=== PATIENT | female | born 1940 | race Caucasian/White ===

== ENCOUNTER → 2018-04-01 14:08 | Outpatient (CLI) | payer MEDICARE, OTHER, SELFPAY ==
[2018-04-01 14:42] LABS: Mean Corpuscular HGB Conc 34.4 % (30-36); Mean Corpuscular Hemoglobin 29.5 PG (26-34); Mean Corpuscular Volume 85.8 fL (80-100); Platelet Count 63 X10^3/uL (150-400); Red Blood Cell Count 1.64 X10^6/uL (4.0-5.2)
[2018-04-01 14:43] LABS: Hemoglobin 4.8 g/dL (12.0-16.0); White Blood Cell Count 0.8 X10^3/uL (4.5-11.0)
[2018-04-01 14:44] LABS: Hematocrit 14.1 % (36-46)
[2018-04-01 14:45] LABS: Add Manual Diff / Slide Review YES
[2018-04-01 14:50] LABS: Alanine Aminotransferase 17 IU/L (9-52); Albumin 3.4 g/dL (3.5-5.0); Albumin Globulin Ratio 1.4 (1.0-2.8); Alkaline Phosphatase 64 U/L (38-126); Aspartate Aminotransferase 14 IU/L (14-36); BUN Creatinine Ratio 21.9 (6-22); Bilirubin Total 0.7 mg/dL (0.2-1.3); Bilirubin Unconjugated 0.6 mg/dL (0.0-1.1); Blood Urea Nitrogen 35 mg/dL (7-17); Carbon Dioxide 20 mmol/L (22-32); Chloride 104 mmol/L (98-107); Estimated Glomerular Filt Rate 31.3 mL/min (>60); Globulin 2.4 g/dL (1.7-4.1); Glucose 122 mg/dL (80-110); HEMOLYSIS < 15 (0-50); Potassium 3.7 mmol/L (3.4-5.1); Sodium 136 mmol/L (137-145); Total Protein 5.8 g/dL (6.3-8.2)
--- NOTE | 2018-04-01 14:56 | ONC.PN ---
PN -Subjective Interval history: Tona Alves is a 77 year old female. She is a long-time patient of Dr. Babita Thompson at the [facility]. 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 The biopsy was performed on 12/14/2010 which showed amyloidosis with deposits of monoclonal lambda light chains within glomeruli. Bone marrow aspiration biopsy on 01/06/2011 showed plasma cell fractionation of 0.92% by flow cytometry. Patient received treatment with melphalan and dexamethasone for 12 months. The melphalan was 10 mg daily for 4 days every 4 weeks and dexamethasone 20 mg daily for 4 days every 4 weeks. Patient received her twelfth cycle of treatment in February of 2012. In October 2016, patient developed pancytopenia. BMA/Bx on 11/28/16 showed hypocellular marrow (%) with involvement by MDS and minimal involvement by plasma cell neoplasm. Marrow showed 3% blasts by morphology. Cytogenetics showed complex karyotype including deletion 5q and monosomy 7. 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 Because of her history of amyloidosis and therapy with melpalan, therapy-related MDS (t-MDS) was noted. She was evaluated at [facility] by Dr. Babita Thompson. The patient was then started on Azacitidine 75 m/m2 daily on days 1 through 10. C1D1 was 02/05/2017. she was also started on treatment with Darbopointin injection. Up until now, she has received 10 cycles of Azacitaidine. On 01/18/2018, repeat BMA/Bx showed persistent/recurrent MDS with approximately 5% blasts in 2-30% cellular marrow and residual/recurrent plasma cell neoplasm, approximately 1-2%, abnormal female karyotype (19/20), including loss of normal copies of chromosomes 4, 7 and 19; additional material of undefined origin on the short arm of chromosome 2 and the long arms of chromosomes 6 and 20; deletions of the long arms of chromosomes 5 and 15; a derivative chromosome resulting from an unbalanced translocation between and unknown chromosome and what appear to be portions of the missing chromosomes 4 and 19; and the presence of 1-3 marker chromosomes of undefined origin. The -4, smiley(15), add(20), and smiley(?)t(?:4) are new findings. Clinically, she said at present, she feels good. No nose bleed for quite a while. She went to ER for nose bleeding in the past. She reports good energy, good appetite, no fever and no chills. She has mild lower extremity edema. She reports no blood in the stool. No bone pain. She is scheduled to see Dr. Babita Dickey on 03/13/2018. Interim Events Patient recently was seen by Dr. Babita Thompson at the [facility]. She was given Azacitadine 03/20/2018 the 10th injection of curren cycle. She will be started 04/11/2018 next cycle. She also received Darbepoetin at the time. Patient presents here today for scheduled follow-up visit. Patient is hoping that she is able to continue the Darbepoetin here. But she has not decided whether she will continue the treatment with Vidaza at [place]. She said for the last couple of days, she has felt a lot weaker than before. She also is feeling pounding of the heart. Her thought she was having anxiety attack. No fever and no chills. No bleeding events. - Additional ROS All systems PM: reviewed and no additional remarkable complaints except as stated Home Medications and Allergies Home Medications Medication Instructions Recorded Confirmed Type acyclovir 800 mg PO DAILY #0 12/30/10 04/01/18 History atorvastatin 40 mg PO HS #90 tab 10/18/16 04/06/18 Rx cholecalciferol (vitamin D3) 1,000 unit PO Q OTHER DAY 03/11/18 04/06/18 History [Vitamin D3] levofloxacin 250 mg PO DAILY 03/11/18 04/06/18 History metoprolol succinate 300 mg PO DAILY 03/11/18 04/01/18 History polyethylene glycol 3350 [Miralax] 17 g PO PRN PRN 03/11/18 04/06/18 History amlodipine 5 mg PO DAILY 04/05/18 04/05/18 History fluconazole 200 mg PO DAILY 04/06/18 04/06/18 History Allergies Allergy/AdvReac Type Severity Reaction Status Date / Time amoxicillin Allergy Mild Rash Verified 04/01/18 22:57 Tetanus Vaccines and Toxoid AdvReac Unknown Verified 04/01/18 15:03 [TETANUS VACCINES & TOXOID] Exam Vital signs: Last Vital Signs Temp 98.0 F 04/01/18 16:32 Pulse 80 04/01/18 16:32 Resp 18 04/01/18 16:32 BP 137/61 04/01/18 16:32 Pulse Ox 100 04/01/18 16:32 ECOG 1 Narrative: Constitutional: WDWN, NAD, average body habitus, well groomed, pleasant and cooperative, accompanied by her HEENT: NCAT, EOMI, PERRLA, anicteric sclera, no hearing difficulty; oral mucus membrane moist and without ulcers. Neck: Supple, symmetrical, and tracheal midline; No palpable thyromegaly and no palpable lymph nodes. Respiratory: No use of accessory muscles. Clear to auscultation, and no wheezes or rales or rubs. Cardiovascular: Regular rate and rhythm, S1 and S2 normal, no murmurs gallops or rubs. No JVD. No pitting edema of lower extremities. Abdomen: Soft, nontender, non-distended, bowel sounds normal, no palpable organomegaly, no hernia, no palpable masses. Lower extremities: No palpable pedal edema. Lymphatic: no palpable lymph nodes in the neck, axillae, or groins. Musculoskeletal: normal gait and station, no clubbing, no cyanosis, no pitting edema. Skin: petechiae noted at cheeks Neurological: Awake and alert and oriented x3. CN II-XII grossly intact. No focal motor or sensory deficit. Psychiatric: Good judgment, good insight, normal affect, normal thought process, cooperative, no depression, no anxiety. Results - Labs Laboratory Last Values WBC 0.8 X10^3/uL (4.5-11.0) L* 04/01/18 14:16 RBC 1.64 X10^6/uL (4.0-5.2) L 04/01/18 14:16 Hgb 4.8 g/dL (12.0-16.0) L* 04/01/18 14:16 Hct 14.1 % (36-46) L* 04/01/18 14:16 MCV 85.8 fL (80-100) 04/01/18 14:16 MCH 29.5 PG (26-34) 04/01/18 14:16 MCHC 34.4 % (30-36) 04/01/18 14:16 RDW 14.0 % (11.6-14.8) 04/01/18 14:16 Plt Count 63 X10^3/uL (150-400) L 04/01/18 14:16 Neut % (Auto) Not Reportable 04/01/18 14:16 Lymph % (Auto) Not Reportable 04/01/18 14:16 [place] % (Auto) Not Reportable 04/01/18 14:16 Eos % (Auto) Not Reportable 04/01/18 14:16 Baso % (Auto) Not Reportable 04/01/18 14:16 Sodium 136 mmol/L (137-145) L 04/01/18 14:16 Potassium 3.7 mmol/L (3.4-5.1) 04/01/18 14:16 Chloride 104 mmol/L (98-107) 04/01/18 14:16 Carbon Dioxide 20 mmol/L (22-32) L 04/01/18 14:16 BUN 35 mg/dL (7-17) H 04/01/18 14:16 Creatinine 1.60 mg/dL (0.52-1.04) H 04/01/18 14:16 Estimated GFR 31.3 mL/min (>60) L 04/01/18 14:16 BUN/Creatinine Ratio 21.9 (6-22) 04/01/18 14:16 Glucose 122 mg/dL (80-110) H 04/01/18 14:16 Calcium 8.0 mg/dL (8.4-10.2) L 04/01/18 14:16 Total Bilirubin 0.7 mg/dL (0.2-1.3) 04/01/18 14:16 Conjugated Bilirubin 0.0 md/dL (0.0-0.3) 04/01/18 14:16 Unconjugated Bilirubin 0.6 mg/dL (0.0-1.1) 04/01/18 14:16 AST 14 IU/L (14-36) 04/01/18 14:16 ALT 17 IU/L (9-52) 04/01/18 14:16 Alkaline Phosphatase 64 U/L (38-126) 04/01/18 14:16 Total Protein 5.8 g/dL (6.3-8.2) L 04/01/18 14:16 Albumin 3.4 g/dL (3.5-5.0) L 04/01/18 14:16 Globulin 2.4 g/dL (1.7-4.1) 04/01/18 14:16 Albumin/Globulin Ratio 1.4 (1.0-2.8) 04/01/18 14:16 Assessment and Plan (1) Anemia Problem details: Likely related to the underlying myelodysplastic syndrome as well as the treatment with azacitidine. She is now getting Darbepoetin injection 300 mcg q2w for HGB < 12. Assessment and Plan: Severe symptomatic anemia with hemoglobin level only 4.8 hematocrit 14.1. I will proceed with blood transfusion 3 units. Will give 20 mg of Lasix after 2 units. I will have the patient come back on Sunday and repeat CBC to decide if further blood transfusion is needed. And will start W pointing at the time 300 and mcg once every 2 weeks. Talked about that in the future it would be necessary to monitor her blood counts at least once a week. (2) Therapy-related myelodysplastic syndrome Problem details: 1. 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 At the time of diagnosis, she presented with anemia and leukopenia. Thought to be therapy related. 2. Azacitidine 75 m/m2 daily on days 1-10 q4w. C1D1 was 02/05/2017. 3. Darbepoetin injection 300 mcg q2w for HGB < 12. Assessment and Plan: Will continue azacitidine at [facility]. Patient has not decided to transfer the treatment over here yet. (3) AL amyloidosis Problem details: Diagnosed in 2010, status post 12 cycles of chemotherapy with the melphalan and dexamethasone. Assessment and Plan: Patient is a being followed by [facility]. (4) CKD (chronic kidney disease) stage 3, GFR 30-59 ml/min Problem details: Due to AL amyloidosis. Assessmend and Plan: Followed by [facility].
[2018-04-01 14:57] VITALS: BP 137/61; PULSE 80; RESP 18
--- NOTE | 2018-04-01 15:00 | P.PNONC_ITS ---
PN -Subjective Interval history: Tona Alves is a 77 year old female. She is a long-time patient of Dr. Babita Thompson at the [facility]. 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 The biopsy was performed on 12/14/2010 which showed amyloidosis with deposits of monoclonal lambda light chains within glomeruli. Bone marrow aspiration biopsy on 01/06/2011 showed plasma cell fractionation of 0.92% by flow cytometry. Patient received treatment with melphalan and dexamethasone for 12 months. The melphalan was 10 mg daily for 4 days every 4 weeks and dexamethasone 20 mg daily for 4 days every 4 weeks. Patient received her twelfth cycle of treatment in February of 2012. In October 2016, patient developed pancytopenia. BMA/Bx on 11/28/16 showed hypocellular marrow (%) with involvement by MDS and minimal involvement by plasma cell neoplasm. Marrow showed 3% blasts by morphology. Cytogenetics showed complex karyotype including deletion 5q and monosomy 7. 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 Because of her history of amyloidosis and therapy with melpalan, therapy-related MDS (t-MDS) was noted. She was evaluated at [facility] by Dr. Babita Thompson. The patient was then started on Azacitidine 75 m/m2 daily on days 1 through 10. C1D1 was 02/05/2017. she was also started on treatment with Darbopointin injection. Up until now, she has received 10 cycles of Azacitaidine. On 01/18/2018, repeat BMA/Bx showed persistent/recurrent MDS with approximately 5% blasts in 2-30% cellular marrow and residual/recurrent plasma cell neoplasm, approximately 1-2%, abnormal female karyotype (19/20), including loss of normal copies of chromosomes 4, 7 and 19; additional material of undefined origin on the short arm of chromosome 2 and the long arms of chromosomes 6 and 20; deletions of the long arms of chromosomes 5 and 15; a derivative chromosome resulting from an unbalanced translocation between and unknown chromosome and what appear to be portions of the missing chromosomes 4 and 19; and the presence of 1-3 marker chromosomes of undefined origin. The -4, smiley(15), add(20) , and smiley(?)t(?:4) are new findings. Clinically, she said at present, she feels good. No nose bleed for quite a while. She went to ER for nose bleeding in the past. She reports good energy, good appetite, no fever and no chills. She has mild lower extremity edema. She reports no blood in the stool. No bone pain. She is scheduled to see Dr. Babita Dickey on 03/13/2018. Interim Events Patient recently was seen by Dr. Babita Thompson at the [facility]. She was given Azacitadine 03/20/2018 the 10th injection of curren cycle. She will be started 04/11/2018 next cycle. She also received Darbepoetin at the time. Patient presents here today for scheduled follow-up visit. Patient is hoping that she is able to continue the Darbepoetin here. But she has not decided whether she will continue the treatment with Vidaza at [place]. She said for the last couple of days, she has felt a lot weaker than before. She also is feeling pounding of the heart. Her thought she was having anxiety attack. No fever and no chills. No bleeding events. - Additional ROS All systems PM: reviewed and no additional remarkable complaints except as stated Home Medications and Allergies Home Medications Medication Instructions Recorded Confirmed Type acyclovir 800 mg PO DAILY #0 12/30/10 04/01/18 History atorvastatin 40 mg PO HS #90 tab 10/18/16 04/06/18 Rx cholecalciferol (vitamin D3) 1,000 unit PO Q OTHER DAY 03/11/18 04/06/18 History [Vitamin D3] levofloxacin 250 mg PO DAILY 03/11/18 04/06/18 History metoprolol succinate 300 mg PO DAILY 03/11/18 04/01/18 History polyethylene glycol 3350 [Miralax] 17 g PO PRN PRN 03/11/18 04/06/18 History amlodipine 5 mg PO DAILY 04/05/18 04/05/18 History fluconazole 200 mg PO DAILY 04/06/18 04/06/18 History Allergies Allergy/AdvReac Type Severity Reaction Status Date / Time amoxicillin Allergy Mild Rash Verified 04/01/18 22:57 Tetanus Vaccines and Toxoid AdvReac Unknown Verified 04/01/18 15:03 [TETANUS VACCINES & TOXOID] Exam Vital signs: Last Vital Signs Temp 98.0 F 04/01/18 16:32 Pulse 80 04/01/18 16:32 Resp 18 04/01/18 16:32 BP 137/61 04/01/18 16:32 Pulse Ox 100 04/01/18 16:32 ECOG 1 Narrative: Constitutional: WDWN, NAD, average body habitus, well groomed, pleasant and cooperative, accompanied by her HEENT: NCAT, EOMI, PERRLA, anicteric sclera, no hearing difficulty; oral mucus membrane moist and without ulcers. Neck: Supple, symmetrical, and tracheal midline; No palpable thyromegaly and no palpable lymph nodes. Respiratory: No use of accessory muscles. Clear to auscultation, and no wheezes or rales or rubs. Cardiovascular: Regular rate and rhythm, S1 and S2 normal, no murmurs gallops or rubs. No JVD. No pitting edema of lower extremities. Abdomen: Soft, nontender, non-distended, bowel sounds normal, no palpable organomegaly, no hernia, no palpable masses. Lower extremities: No palpable pedal edema. Lymphatic: no palpable lymph nodes in the neck, axillae, or groins. Musculoskeletal: normal gait and station, no clubbing, no cyanosis, no pitting edema. Skin: petechiae noted at cheeks Neurological: Awake and alert and oriented x3. CN II-XII grossly intact. No focal motor or sensory deficit. Psychiatric: Good judgment, good insight, normal affect, normal thought process , cooperative, no depression, no anxiety. Results - Labs Laboratory Last Values WBC 0.8 X10^3/uL (4.5-11.0) L* 04/01/18 14:16 RBC 1.64 X10^6/uL (4.0-5.2) L 04/01/18 14:16 Hgb 4.8 g/dL (12.0-16.0) L* 04/01/18 14:16 Hct 14.1 % (36-46) L* 04/01/18 14:16 MCV 85.8 fL (80-100) 04/01/18 14:16 MCH 29.5 PG (26-34) 04/01/18 14:16 MCHC 34.4 % (30-36) 04/01/18 14:16 RDW 14.0 % (11.6-14.8) 04/01/18 14:16 Plt Count 63 X10^3/uL (150-400) L 04/01/18 14:16 Neut % (Auto) Not Reportable 04/01/18 14:16 Lymph % (Auto) Not Reportable 04/01/18 14:16 Sabine % (Auto) Not Reportable 04/01/18 14:16 Eos % (Auto) Not Reportable 04/01/18 14:16 Baso % (Auto) Not Reportable 04/01/18 14:16 Sodium 136 mmol/L (137-145) L 04/01/18 14:16 Potassium 3.7 mmol/L (3.4-5.1) 04/01/18 14:16 Chloride 104 mmol/L (98-107) 04/01/18 14:16 Carbon Dioxide 20 mmol/L (22-32) L 04/01/18 14:16 BUN 35 mg/dL (7-17) H 04/01/18 14:16 Creatinine 1.60 mg/dL (0.52-1.04) H 04/01/18 14:16 Estimated GFR 31.3 mL/min (>60) L 04/01/18 14:16 BUN/Creatinine Ratio 21.9 (6-22) 04/01/18 14:16 Glucose 122 mg/dL (80-110) H 04/01/18 14:16 Calcium 8.0 mg/dL (8.4-10.2) L 04/01/18 14:16 Total Bilirubin 0.7 mg/dL (0.2-1.3) 04/01/18 14:16 Conjugated Bilirubin 0.0 md/dL (0.0-0.3) 04/01/18 14:16 Unconjugated Bilirubin 0.6 mg/dL (0.0-1.1) 04/01/18 14:16 AST 14 IU/L (14-36) 04/01/18 14:16 ALT 17 IU/L (9-52) 04/01/18 14:16 Alkaline Phosphatase 64 U/L (38-126) 04/01/18 14:16 Total Protein 5.8 g/dL (6.3-8.2) L 04/01/18 14:16 Albumin 3.4 g/dL (3.5-5.0) L 04/01/18 14:16 Globulin 2.4 g/dL (1.7-4.1) 04/01/18 14:16 Albumin/Globulin Ratio 1.4 (1.0-2.8) 04/01/18 14:16 Assessment and Plan (1) Anemia Problem details: Likely related to the underlying myelodysplastic syndrome as well as the treatment with azacitidine. She is now getting Darbepoetin injection 300 mcg q2w for HGB < 12. Assessment and Plan: Severe symptomatic anemia with hemoglobin level only 4.8 hematocrit 14.1. I will proceed with blood transfusion 3 units. Will give 20 mg of Lasix after 2 units. I will have the patient come back on Sunday and repeat CBC to decide if further blood transfusion is needed. And will start W pointing at the time 300 and mcg once every 2 weeks. Talked about that in the future it would be necessary to monitor her blood counts at least once a week. (2) Therapy-related myelodysplastic syndrome Problem details: 1. 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 At the time of diagnosis, she presented with anemia and leukopenia. Thought to be therapy related. 2. Azacitidine 75 m/m2 daily on days 1-10 q4w. C1D1 was 02/05/2017. 3. Darbepoetin injection 300 mcg q2w for HGB < 12. Assessment and Plan: Will continue azacitidine at [facility]. Patient has not decided to transfer the treatment over here yet. (3) AL amyloidosis Problem details: Diagnosed in 2010, status post 12 cycles of chemotherapy with the melphalan and dexamethasone. Assessment and Plan: Patient is a being followed by dog daycare provider. (4) CKD (chronic kidney disease) stage 3, GFR 30-59 ml/min Problem details: Due to AL amyloidosis. Assessmend and Plan: Followed by dog daycare provider.
[2018-04-01 15:12] LABS: Neutrophils Absolute Manual 96 /uL (3000-5900); Total Cells Counted 25
[2018-04-01 15:14] LABS: Anisocytosis 1+
--- NOTE | 2018-04-01 15:38 | PC.NURSE ---
Dr. Stanton and patient have decided to HOLD Aranesp until when patient comes back for blood draw.
[2018-04-01 16:32] VITALS: BP 137/61; PULSE 80; RESP 18; TEMP 36.7; O2SAT 100
--- NOTE | 2018-04-01 16:58 | PC.NURSE ---
Transferred via W/C to 228 for blood transfusion as Infusion Suite closed @ 5:00. Accompanied by spouse. Ambulatory to Bathroom .
== END ==
PROVIDERS: Family Provider Family Medicine; PCP Family Medicine; Visit Provider Internal Medicine Hematology & Oncology
DX: D46.9 Myelodysplastic syndrome, unspecified (principal)
CPT/HCPCS: 36415; 80048; 80076; 85025

== ENCOUNTER 2018-04-01 16:56 | Observation (INO) | payer MEDICARE, OTHER, SELFPAY ==
[2018-04-01] VITALS (9 sets, daily range): BP systolic 134–147; BP diastolic 60–67; PULSE 70–79; RESP 16–20; TEMP 36.5–37.2; O2SAT 96–100; BMI 26.3
[2018-04-01] MEDS: SODIUM CHLORIDE 0.9% 250 ML 21 ML IV (17:46)
--- NOTE | 2018-04-01 18:09 | PC.NURSE ---
Airam shift note: Patient admitted to , observation status for PRBC transfusions x 3. Patient was BIB by oncology nurse and report was given at bedside. Consent for transfusion verified. Obtained blood product from LAB and initiated transfusion at 1720. VSS and afebrile. Cross and match was perfomed at 1424 (blood type O +). All verifications performed as per policy. Patient is awake, alert, and pleasant, no SOB or dizziness. Facial pallor noted. at bedside providing supportive care. Discussed and educateed regarding s/sx of transfusion reaction, verbalized understanding. VS obtained may not populate on TAR due to issued with crossing initial account to from oncology. (please see VS record). Call light within reach.
[2018-04-01] MEDS: ATORVASTATIN 20 MG TABLET 40 MG PO (19:30)
[2018-04-01] MEDS: METOPROLOL ER 50 MG TABLET 150 MG PO (19:31)
[2018-04-01] MEDS: levoFLOXacin 250 MG TABLET PO (21:19)
[2018-04-01] MEDS: FUROSEMIDE 20 MG/2 ML VIAL IV (23:57)
[2018-04-02 00:25] VITALS: BP 141/60; PULSE 72; RESP 16; TEMP 36.5
[2018-04-02 00:46] VITALS: BP 132/68; PULSE 71; RESP 14; TEMP 36.7
--- NOTE | 2018-04-02 01:02 | TAR.TRANSNT ---
Blood transfusion started at 0031 which was within 15 minutes of issue time, but computer kept displaying message that time was outside 15 minutes of issue time.
--- NOTE | 2018-04-02 01:03 | PC.NURSE ---
Addendum entered by Sarika Michel R.N. 04/02/18 04:01: 3rd unit of PRBC initiated at 0031 now completed at 0342 without problems. Original Note: Patient is alert and oriented. Breath sounds CTA with RA sat of 98%. HRR. Denies nausea. BT present and abdomen is soft. Has urinary frequency but denies dysuria or incontinence. Independent with bed mobility but SBA to bathroom for safety. Noted bruising on bilateral UE. Denies pain. Fall risk score is moderate but no bed alarm in use as patient is calling appropriately and is steady on feet.
[2018-04-02 03:42] VITALS: BP 142/69; PULSE 69; RESP 14; TEMP 36.5; O2SAT 98
[2018-04-02] MEDS: SODIUM CHLORIDE 0.9% 250 ML 21 ML IV (03:42)
[2018-04-02 07:45] VITALS: BP 143/63; PULSE 67; RESP 16; TEMP 36.9; O2SAT 93
[2018-04-02] MEDS: METOPROLOL ER 50 MG TABLET 150 MG PO (08:16)
--- NOTE | 2018-04-02 09:25 | PC.NURSE ---
Day Shift- Pt A&OX4, pleasant and cooperative, appropriate and able to make her needs known using call light. SBA to BR with steady agit. States feeling overall better than when I came in. Kanu at bedside who stayed the night. VSS, afebrile, pt asymptomatic upon assessment. RN Coordinator spoke with Dr. Parker office and rec'd verbal discharge order to go home, no lab work order for this AM, will follow up in Dr. Stanton's office this Sunday ( pt already has appointment made) for repeat lab work. Continue home medications. PIV removed from left AC without difficulty, no bleeding noted. Gauze, paper tabe and coban placed per pt request. Pt given priority boarding pass [place] [address] to [facility]. Reviewed discharge summary with pt and her , no voiced concerns. is ready for discharge. has all belongings. Pt left unit at 0930 via wheelchair with HAND HIDE STRETCHER, pt's present to drive home. Pt left unit in no distress.
--- NOTE | 2018-04-02 10:14 | CM.DPC ---
DCP Cont: Case received, EMR reviewed and met with patient and . Introduced self and role. DCP template completed with information given by . Patient is a 77 year old female who admitted yesterday afternoon to the care of the hospitalist team. PCP: Dr. Melendez. Payer: confirmed: Medicare/[employer]. Patient came over to hospital sent from oncology. She was here for blood transfusions. Met briefly with in room. They live on [facility], and come to oncology for treatments. Indicated that she is independent at home. Patient is to be discharged home today. P: Patient discharged home today post transfusion. Will be following up at oncology clinic. Tamara Lawton RN/Credit Investigator
== END 2018-04-02 09:30 | disposition home or self-care (01) ==
PROVIDERS: Admitting Provider Internal Medicine Hematology & Oncology; Family Provider Family Medicine; PCP Family Medicine; Visit Provider Internal Medicine Hematology & Oncology
DX: D64.9 Anemia, unspecified (principal); C94.6 Myelodysplastic disease, not elsewhere classified; E85.81 Light chain (AL) amyloidosis; N18.3 Chronic kidney disease, stage 3 (moderate)
CPT/HCPCS: 36415; 36430; 80048; 80076; 85025; 86850; 86900; 86901; 99215; G0378; P9016; G0379; J1940

== ENCOUNTER → 2018-04-25 10:22 | Outpatient (CLI) | payer MEDICARE, OTHER, SELFPAY ==
[2018-04-01 17:11] VITALS: BMI 26.3
[2018-04-25 11:09] LABS: Hematocrit 22.4 % (36-46); Hemoglobin 7.8 g/dL (12.0-16.0); Mean Corpuscular HGB Conc 34.7 % (30-36); Mean Corpuscular Hemoglobin 29.9 PG (26-34); Mean Corpuscular Volume 86.3 fL (80-100); Platelet Count 70 X10^3/uL (150-400); Red Cell Distribution Width 13.4 % (11.6-14.8)
[2018-04-25 11:10] LABS: White Blood Cell Count 0.8 X10^3/uL (4.5-11.0)
[2018-04-25 11:11] LABS: Add Manual Diff / Slide Review YES
[2018-04-25 11:33] LABS: Neutrophils Absolute Manual 64 /uL (3000-5900); Platelet Morphology Comment K1; RBC Morphology A1; Total Cells Counted 50
== END ==
PROVIDERS: Family Provider Family Medicine; PCP Family Medicine; Visit Provider Internal Medicine Hematology & Oncology
DX: D46.9 Myelodysplastic syndrome, unspecified (principal)
CPT/HCPCS: 36415; 85025

== ENCOUNTER → 2018-05-02 11:50 | Outpatient (CLI) | payer MEDICARE, OTHER, SELFPAY ==
[2018-04-01 17:11] VITALS: BMI 26.3
--- NOTE | 2018-05-02 12:25 | DI.CT.S_ITS ---
PROCEDURE: CT CHEST WO CON INDICATIONS: increased sob and cough TECHNIQUE: Noncontrast 5 mm thick sections acquired from the pulmonary apices to the posterior costophrenic angles. 7 mm thick coronal and sagittal MIP reformats were then acquired. For radiation dose reduction, the following was used: automated exposure control, adjustment of mA and/or kV according to patient size. COMPARISON: None. FINDINGS: Image quality: Diagnostic. Lungs and pleura: Patchy areas of consolidation are identified diffusely throughout the lungs, most pronounced within the right upper lobe and left lower lobe. Impression nodularity is evident. No lobar consolidation is appreciated. No effusion or pneumothorax is evident. No definite masses appreciated. Mediastinum: Heart size is enlarged. There is a small pericardial effusion. Coronary artery atherosclerosis is present. Borderline aneurysmal dilatation of the ascending thoracic aorta is identified, measuring up to 3.9 cm in AP dimension near the level of the pulmonary artery. The main pulmonary artery appears to be within normal limits for size. Esophagus is normal in caliber. No hiatal hernia. Mildly enlarged mediastinal and hilar lymph nodes are identified which are probably reactive. Bones and chest wall: No suspicious bony lesions. No vertebral body compression fractures. Age-appropriate degenerative changes of the spine are present. No axillary or supraclavicular adenopathy by size criteria. Thyroid gland is unremarkable. Abdomen: Visualized upper abdominal solid organs and bowel loops appear normal in the absence of contrast. IMPRESSION: 1. Diffuse patchy pneumonia is more pronounced within the right upper lobe and left lower lobe. 2. Cardiomegaly with a small pericardial effusion. 3. Ectasia of the ascending thoracic aorta without jase aneurysm. 4. Scattered reactive lymph nodes within the mediastinum and hilar regions. Dictated by: Lio Rosado M.D. on 05/02/2018 at 11:52 Approved by: Lio Rosado M.D. on 05/02/2018 at 12:04
== END ==
PROVIDERS: Family Provider Internal Medicine Hematology; PCP Family Medicine; Visit Provider Internal Medicine Hematology & Oncology
DX: J18.9 Pneumonia, unspecified organism (principal); R06.02 Shortness of breath; R05 Cough; I51.7 Cardiomegaly; I31.3 Pericardial effusion (noninflammatory); I77.810 Thoracic aortic ectasia; I25.10 Atherosclerotic heart disease of native coronary artery without angina pectoris; R59.0 Localized enlarged lymph nodes
CPT/HCPCS: 71250

== ENCOUNTER 2018-05-02 16:39 | Inpatient (IN) | payer MEDICARE, OTHER, SELFPAY ==
[2018-04-01 17:11] VITALS: BMI 26.3
[2018-05-02] VITALS (7 sets, daily range): BP systolic 144–162; BP diastolic 62–73; PULSE 71–86; RESP 20–23; TEMP 37.1–37.8; O2SAT 91–94; BMI 26.1
[2018-05-02 18:07] LABS: Hematocrit 25.7 % (36-46); Hemoglobin 8.8 g/dL (12.0-16.0); Mean Corpuscular HGB Conc 34.1 % (30-36); Mean Corpuscular Hemoglobin 29.8 PG (26-34); Mean Corpuscular Volume 87.4 fL (80-100); Platelet Count 38 X10^3/uL (150-400); Red Blood Cell Count 2.95 X10^6/uL (4.0-5.2); Red Cell Distribution Width 13.4 % (11.6-14.8)
[2018-05-02 18:09] LABS: Add Manual Diff / Slide Review YES; White Blood Cell Count 0.8 X10^3/uL (4.5-11.0)
--- NOTE | 2018-05-02 18:11 | PM.HP.1 ---
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 Stanton at the [facility] for shortness of breath, cough, fever, and diarrhea. The patient reports that she went to [facility] on Sunday and developed a cough later that evening. She had accompanying fever at at 100.4? F and diarrhea (4-5 watery stools per day). Today she started developing difficulty breathing. She has had mild blood-tinged sputum as well. She has chronic rhinitis that has not worsened. She denies headache, vision changes, sore throat, chest pain, abdominal pain, nausea, vomiting, dysuria, or constipation. She does endorse fatigue and does not usually feel symptomatic of her anemia including fatigue, lethargy, and shortness of breath. Her appetite and fluid intake have been poor. Her oncologist is Dr. Emily Thompson at [facility] and Dr. Naeem Stanton at [facility]. PCP is Dr. Melendez on [facility]. Patient History Medical History Amyloidosis (Acute) CKD (chronic kidney disease) (Acute) Cancer, skin, squamous cell (Acute) HTN (hypertension) (Acute) Hyperlipidemia (Acute) Intermittent atrial fibrillation (Acute) 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) Surgical History History of bone marrow biopsy (Acute) History of brain surgery (Acute) Hx laparoscopic cholecystectomy (Acute) Hx of cholecystectomy (Acute) Family & Social History Social History: household members spouse The patient lives with her spouse. She has been for 58 years. She has 1 daughter who has MS and 1 son who is healthy. Tobacco & Substance use: Smoking Status Never smoker alcohol intake frequency 0-2 drinks per day No illicit substances. Meds Home Medications Medication Instructions Recorded Confirmed Type acyclovir 800 mg PO DAILY #0 12/30/10 05/02/18 History atorvastatin 40 mg PO HS #90 tab 10/18/16 05/02/18 Rx cholecalciferol (vitamin D3) 5,000 unit PO Q OTHER DAY 03/11/18 05/02/18 History [Vitamin D3] metoprolol succinate 150 mg PO BID 03/11/18 05/02/18 History polyethylene glycol 3350 [Miralax] 17 g PO PRN PRN 03/11/18 05/02/18 History amlodipine 5 mg PO DAILY 04/05/18 05/02/18 History fluconazole 200 mg PO DAILY #30 tab 05/02/18 05/02/18 Rx levofloxacin 500 mg PO DAILY #30 tab 05/02/18 05/02/18 Rx ondansetron HCl [Zofran] 4 mg PO DAILY 05/02/18 05/02/18 History Allergies Allergy/AdvReac Type Severity Reaction Status Date / Time amoxicillin Allergy Mild Rash Verified 04/01/18 22:57 Tetanus Vaccines and Toxoid AdvReac Unknown Verified 04/01/18 15:03 [TETANUS VACCINES & TOXOID] Review of Systems Review of Systems A 10 system comprehensive review of systems was conducted with the patient and found to be negative except as above in the History of Present Illness. Exam Narrative Exam Narrative: General: Elderly female with pallor sitting in bed and in no acute distress, well-developed, well-nourished, appropriately interactive. HEENT: Normocephalic, atraumatic. External ears without defect. Pupils equal, round, and reactive to light. Anicteric sclerae, moist conjunctivae, and no lid lag. Oropharynx free of erythema and cobble stoning with moist mucosa. Neck: Supple with full range of motion. No jugular venous distension. No bruits. No lymphadenopathy or thyromegaly. Cardiovascular: Regular rate and rhythm without murmurs, rubs, or gallops appreciated Pulmonary: Bilateral rhonchi throughout all lung hussein with scattered wheeze. Normal respiratory effort with no use of accessory muscles. Abdomen: Soft, bowel sounds present nontender, nondistended. No hepatosplenomegaly or masses appreciated. Extremities: No clubbing, cyanosis, or edema. Skin: Normal temperature, turgor, and texture; no rash, ulcers, or subcutaneous nodules appreciated. Neurological: Cranial nerves grossly intact. Normal muscle strength, tone, and bulk. Reflexes, coordination, and sensory function within normal limits. No known gait impairment. Psychiatric: Normal mood and affect. Alert and oriented to person, place, and time. Objective Labs Result Diagrams: 05/02/18 17:55 05/02/18 17:55 Labs: Laboratory Results - last 24 hr 05/02/18 05/02/18 10:34 17:55 WBC 0.8 L* RBC 2.95 L Hgb 8.8 L Hct 25.7 L MCV 87.4 MCH 29.8 MCHC 34.1 RDW 13.4 Plt Count 38 L Neut % (Auto) Not Reportable Lymph % (Auto) Not Reportable [place] % (Auto) Not Reportable Eos % (Auto) Not Reportable Baso % (Auto) Not Reportable Lymph # (Auto) Not Reportable [place] # (Auto) Not Reportable Baso # (Auto) Not Reportable Blood Type O Positive Antibody Screen Negative Crossmatch See Detail Assessment & Plan Plan: Assessment/Plan Narrative: Tona Alves is a 77-year-old female with a past medical history significant for meningioma status post resection, biopsy proven amyloidosis and secondary CKD stage III, status post chemotherapy with melphalan x 12 cycles and dexamethasone, 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 Stanton at the [facility] for shortness of breath, cough, fever, and diarrhea. 1. Acute hypoxemic respiratory failure, present on admission. Active. -Patient presented with cough, dyspnea, and hypoxemia with-Low oxygen saturations mid 80s when supplemental oxygen is removed. -Continue supplemental oxygen as needed to keep oxygen saturations >92%. Titrate off as tolerated. -Ordered levalbuterol every 6 hr as needed for wheezing and shortness of breath. -Ordered respiratory therapy evaluation and treatment. 2. Acute neutropenic community-acquired bilateral pneumonia, present on admission. Active. -Patient is severely immunocompromised and neutropenic presenting with cough, dyspnea, fever, and diarrhea. -Based on symptoms likely viral in etiology with possible superimposed bacterial pneumonia. -Ordered complete pneumonia workup including: Respiratory viral PCR, strep pneumonia and Legionella urine antigens, sputum culture, and blood culture x2. -Continue supplemental oxygen as above. -Ordered Tessalon Perles 100 mg t.i.d. as needed for cough and guaifenesin 1200 mg twice daily for excessive sputum production. -Ordered Acapella to help clear sputum. -Ordered droplet precautions. -Lactic acid normal at 0.08. -Procalcitonin elevated at 0.84. Trend daily. -CT chest without contrast demonstrated bilateral pneumonia more pronounced within the right upper lobe and left lower lobe. -Started on cefepime 2 g every 24 hr due to creatinine clearance and Flagyl 500 mg every 6 hr, for broad-spectrum coverage including anaerobes. 3. Acute watery diarrhea on chronic antibiotics, present on admission. Active. -Patient reports 4-5 bowel movements per day. -Ordered GI panel, pending. -Started patient on cefepime and Flagyl as above for which Flagyl will treat C. difficile if present. 4. 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 Active. -Patient received 1 unit of PRBC at oncologist's office. Will receive 2nd unit of PRBC in house. PRBCs have to be special ordered and irradiated. -Continue to monitor CBC daily. -Patient is severely neutropenic with ANC of 280. 5. 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 Active. -Patient is on azacitidine and darbepoetin injection every 2 weeks. Her oncologist is Dr. Emily Thompson at [facility] and Dr. Naeem Stanton at [facility]. -Patient is transfusion dependent and usually receives 2 units irradiated PRBC per week. -continue prophylactic fluconazole 200 mg daily and acyclovir 800 mg daily. Holding levofloxacin 500 mg daily. 6. Amyloidosis with secondary chronic kidney disease stage 3, chronic, present on admission. Presumed stable. -Status post melphalan x 12 cycles and dexamethasone. Appears to be stable. -Baseline creatinine 1.6. Initial creatinine on admission 1.6. Patient is followed by Nephrology outpatient. -Avoid nephrotoxic agents. -Monitor creatinine daily. 7. Hyperbilirubinemia, acuity unknown, present on admission. Active. -Likely due to biliary stasis from acute illness. -Patient has a history of recent cholecystectomy. -Monitor bilirubin daily. 8. History of paroxysmal atrial fibrillation, not present on admission. Inactive. -Continue to monitor closely on telemetry. -Patient is currently in sinus rhythm with rate controlled in the 70s. -Continue metoprolol succinate 150 mg twice daily. 9. Hyperlipidemia, chronic, present on admission. Stable. -Continue atorvastatin 40 mg daily at bedtime. 10. History of epistasis. -Use humidified supplemental oxygen as needed. Patient is full code but would only want 5 rounds of CPR. Patient is admitted under inpatient status with expected length of stay greater than 2 midnights due to severity of presenting symptoms, risk of adverse event, and complexity of treatment plan.
[2018-05-02 18:12] LABS: Alanine Aminotransferase 29 IU/L (9-52); Albumin 3.4 g/dL (3.5-5.0); Albumin Globulin Ratio 1.2 (1.0-2.8); Alkaline Phosphatase 101 U/L (38-126); Aspartate Aminotransferase 25 IU/L (14-36); BUN Creatinine Ratio 16.3 (6-22); Bilirubin Total 4.2 mg/dL (0.2-1.3); Blood Urea Nitrogen 26 mg/dL (7-17); Calcium 7.9 mg/dL (8.4-10.2); Carbon Dioxide 21 mmol/L (22-32); Chloride 102 mmol/L (98-107); Estimated Glomerular Filt Rate 31.3 mL/min (>60); Globulin 2.9 g/dL (1.7-4.1); Glucose 134 mg/dL (80-110); HEMOLYSIS < 15 (0-50); Lactate (Lactic Acid) 0.8 mmol/L (0.7-2.1); Potassium 3.4 mmol/L (3.4-5.1); Sodium 134 mmol/L (137-145); Total Protein 6.3 g/dL (6.3-8.2)
--- NOTE | 2018-05-02 18:14 | P.HP_ITS ---
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 Stanton at the [facility] for shortness of breath, cough, fever, and diarrhea. The patient reports that she went to [place]u on Sunday and developed a cough later that evening. She had accompanying fever at at 100.4? F and diarrhea (4-5 watery stools per day). Today she started developing difficulty breathing. She has had mild blood- tinged sputum as well. She has chronic rhinitis that has not worsened. She denies headache, vision changes, sore throat, chest pain, abdominal pain, nausea , vomiting, dysuria, or constipation. She does endorse fatigue and does not usually feel symptomatic of her anemia including fatigue, lethargy, and shortness of breath. Her appetite and fluid intake have been poor. Her oncologist is Dr. Emily Thompson at [facility] and Dr. Naeem Stanton at [facility]. PCP is Dr. Melendez on [facility]. Patient History Medical History Amyloidosis (Acute) CKD (chronic kidney disease) (Acute) Cancer, skin, squamous cell (Acute) HTN (hypertension) (Acute) Hyperlipidemia (Acute) Intermittent atrial fibrillation (Acute) 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) Surgical History History of bone marrow biopsy (Acute) History of brain surgery (Acute) Hx laparoscopic cholecystectomy (Acute) Hx of cholecystectomy (Acute) Family & Social History Social History: household members spouse The patient lives with her spouse. She has been for 58 years. She has 1 daughter who has MS and 1 son who is healthy. Tobacco & Substance use: Smoking Status Never smoker alcohol intake frequency 0-2 drinks per day No illicit substances. Meds Home Medications Medication Instructions Recorded Confirmed Type acyclovir 800 mg PO DAILY #0 12/30/10 05/02/18 History atorvastatin 40 mg PO HS #90 tab 10/18/16 05/02/18 Rx cholecalciferol (vitamin D3) 5,000 unit PO Q OTHER DAY 03/11/18 05/02/18 History [Vitamin D3] metoprolol succinate 150 mg PO BID 03/11/18 05/02/18 History polyethylene glycol 3350 [Miralax] 17 g PO PRN PRN 03/11/18 05/02/18 History amlodipine 5 mg PO DAILY 04/05/18 05/02/18 History fluconazole 200 mg PO DAILY #30 tab 05/02/18 05/02/18 Rx levofloxacin 500 mg PO DAILY #30 tab 05/02/18 05/02/18 Rx ondansetron HCl [Zofran] 4 mg PO DAILY 05/02/18 05/02/18 History Allergies Allergy/AdvReac Type Severity Reaction Status Date / Time amoxicillin Allergy Mild Rash Verified 04/01/18 22:57 Tetanus Vaccines and Toxoid AdvReac Unknown Verified 04/01/18 15:03 [TETANUS VACCINES & TOXOID] Review of Systems Review of Systems A 10 system comprehensive review of systems was conducted with the patient and found to be negative except as above in the History of Present Illness. Exam Narrative Exam Narrative: General: Elderly female with pallor sitting in bed and in no acute distress, well-developed, well-nourished, appropriately interactive. HEENT: Normocephalic, atraumatic. External ears without defect. Pupils equal, round, and reactive to light. Anicteric sclerae, moist conjunctivae, and no lid lag. Oropharynx free of erythema and cobble stoning with moist mucosa. Neck: Supple with full range of motion. No jugular venous distension. No bruits. No lymphadenopathy or thyromegaly. Cardiovascular: Regular rate and rhythm without murmurs, rubs, or gallops appreciated Pulmonary: Bilateral rhonchi throughout all lung hussein with scattered wheeze. Normal respiratory effort with no use of accessory muscles. Abdomen: Soft, bowel sounds present nontender, nondistended. No hepatosplenomegaly or masses appreciated. Extremities: No clubbing, cyanosis, or edema. Skin: Normal temperature, turgor, and texture; no rash, ulcers, or subcutaneous nodules appreciated. Neurological: Cranial nerves grossly intact. Normal muscle strength, tone, and bulk. Reflexes, coordination, and sensory function within normal limits. No known gait impairment. Psychiatric: Normal mood and affect. Alert and oriented to person, place, and time. Objective Labs Result Diagrams: 05/02/18 17:55 05/02/18 17:55 Labs: Laboratory Results - last 24 hr 05/02/18 05/02/18 10:34 17:55 WBC 0.8 L* RBC 2.95 L Hgb 8.8 L Hct 25.7 L MCV 87.4 MCH 29.8 MCHC 34.1 RDW 13.4 Plt Count 38 L Neut % (Auto) Not Reportable Lymph % (Auto) Not Reportable [place] % (Auto) Not Reportable Eos % (Auto) Not Reportable Baso % (Auto) Not Reportable Lymph # (Auto) Not Reportable [place] # (Auto) Not Reportable Baso # (Auto) Not Reportable Blood Type O Positive Antibody Screen Negative Crossmatch See Detail Assessment & Plan Plan: Assessment/Plan Narrative: Tona Alves is a 77-year-old female with a past medical history significant for meningioma status post resection, biopsy proven amyloidosis and secondary CKD stage III, status post chemotherapy with melphalan x 12 cycles and dexamethasone, 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 Stanton at the [facility] for shortness of breath, cough, fever, and diarrhea. 1. Acute hypoxemic respiratory failure, present on admission. Active. -Patient presented with cough, dyspnea, and hypoxemia with-Low oxygen saturations mid 80s when supplemental oxygen is removed. -Continue supplemental oxygen as needed to keep oxygen saturations >92%. Titrate off as tolerated. -Ordered levalbuterol every 6 hr as needed for wheezing and shortness of breath. -Ordered respiratory therapy evaluation and treatment. 2. Acute neutropenic community-acquired bilateral pneumonia, present on admission. Active. -Patient is severely immunocompromised and neutropenic presenting with cough, dyspnea, fever, and diarrhea. -Based on symptoms likely viral in etiology with possible superimposed bacterial pneumonia. -Ordered complete pneumonia workup including: Respiratory viral PCR, strep pneumonia and Legionella urine antigens, sputum culture, and blood culture x2. -Continue supplemental oxygen as above. -Ordered Tessalon Perles 100 mg t.i.d. as needed for cough and guaifenesin 1200 mg twice daily for excessive sputum production. -Ordered Acapella to help clear sputum. -Ordered droplet precautions. -Lactic acid normal at 0.08. -Procalcitonin elevated at 0.84. Trend daily. -CT chest without contrast demonstrated bilateral pneumonia more pronounced within the right upper lobe and left lower lobe. -Started on cefepime 2 g every 24 hr due to creatinine clearance and Flagyl 500 mg every 6 hr, for broad-spectrum coverage including anaerobes. 3. Acute watery diarrhea on chronic antibiotics, present on admission. Active. -Patient reports 4-5 bowel movements per day. -Ordered GI panel, pending. -Started patient on cefepime and Flagyl as above for which Flagyl will treat C. difficile if present. 4. 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 Active. -Patient received 1 unit of PRBC at oncologist's office. Will receive 2nd unit of PRBC in house. PRBCs have to be special ordered and irradiated. -Continue to monitor CBC daily. -Patient is severely neutropenic with ANC of 280. 5. 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 Active. -Patient is on azacitidine and darbepoetin injection every 2 weeks. Her oncologist is Dr. Emily Thompson at [facility] and Dr. Naeem Stanton at [facility]. -Patient is transfusion dependent and usually receives 2 units irradiated PRBC per week. -continue prophylactic fluconazole 200 mg daily and acyclovir 800 mg daily. Holding levofloxacin 500 mg daily. 6. Amyloidosis with secondary chronic kidney disease stage 3, chronic, present on admission. Presumed stable. -Status post melphalan x 12 cycles and dexamethasone. Appears to be stable. -Baseline creatinine 1.6. Initial creatinine on admission 1.6. Patient is followed by Nephrology outpatient. -Avoid nephrotoxic agents. -Monitor creatinine daily. 7. Hyperbilirubinemia, acuity unknown, present on admission. Active. -Likely due to biliary stasis from acute illness. -Patient has a history of recent cholecystectomy. -Monitor bilirubin daily. 8. History of paroxysmal atrial fibrillation, not present on admission. Inactive. -Continue to monitor closely on telemetry. -Patient is currently in sinus rhythm with rate controlled in the 70s. -Continue metoprolol succinate 150 mg twice daily. 9. Hyperlipidemia, chronic, present on admission. Stable. -Continue atorvastatin 40 mg daily at bedtime. 10. History of epistasis. -Use humidified supplemental oxygen as needed. Patient is full code but would only want 5 rounds of CPR. Patient is admitted under inpatient status with expected length of stay greater than 2 midnights due to severity of presenting symptoms, risk of adverse event, and complexity of treatment plan.
[2018-05-02 18:36] LABS: Procalcitonin 0.84 ng/mL (<0.5)
[2018-05-02] MEDS: metroNIDAZOLE 500 MG/100 ML PIGGYBACK 100 MG IV (19:01)
[2018-05-02] MEDS: ATORVASTATIN 20 MG TABLET 40 MG PO (19:02)
[2018-05-02] MEDS: METOPROLOL ER 50 MG TABLET 150 MG PO (19:02)
[2018-05-02] MEDS: LEVALBUTEROL 1.25 MG/0.5 ML NEB INH (19:23)
[2018-05-02 19:26] LABS: Neutrophils Absolute Manual 320 /uL (3000-5900); Platelet Estimate Decreased on smear; RBC Morphology Normal Morphology; Total Cells Counted 20
[2018-05-02] MEDS: CEFEPIME 2 GM in SODIUM CHLORIDE 0.9% 100 ML 200 ML IV (20:12)
[2018-05-02 20:22] LABS: Adenovirus F 40/41 Not Detected (Not Detect); Astrovirus Not Detected (Not Detect); Campylobacter Not Detected (Not Detect); Clostridium difficile toxin AB Not Detected (Not Detect); Cryptosporidium Not Detected (Not Detect); Cyclospora cayetanensis Not Detected (Not Detect); Entamoeba histolytica Not Detected (Not Detect); Enteroaggregative E.coli Not Detected (Not Detect); Enteropathogenic E.coli Not Detected (Not Detect); Enterotoxigenic E.coli It/st Not Detected (Not Detect); Giardia lamblia Not Detected (Not Detect); Norovirus GI/GII Not Detected (Not Detect); Plesiomonsa shigelloides Not Detected (Not Detect); Rotavirus A Not Detected (Not Detect); Salmonella Not Detected (Not Detect); Sapovirus Not Detected (Not Detect); Shiga-like toxin-prod E.coli Not Detected (Not Detect); Shigella/Enteroinvasive E.coli Not Detected (Not Detect); Vibrio Not Detected (Not Detect); Vibrio cholerae Not Detected (Not Detect); Yersinia enterocolitica Not Detected (Not Detect)
--- NOTE | 2018-05-02 20:27 | PC.NURSE ---
Addendum entered by Joanna Mcneill R.N. 05/02/18 23:24: 2315 - Pt c/o increasing SOB and feeling hot. Temp check 99.9 temporal. Assist to sit up on edge of bed, pt reports easing work of breathing. 93% on 3L. Lung sounds coarse throughout. No wheezing. Pt denies hx of CHF however does state that during past blood transfusions at the clinic, pt has received lasix between units. VSS. Hospitalist notified. Original Note: Addendum entered by Joanna Mcneill R.N. 05/02/18 22:18: 2130 - 2nd unit PRBC infusing. SBA to bathroom. UA sent. Positioned for comfort. Able to take po meds with snack. Call light in reach. Original Note: 9745 - Pt to room from infusion clinic. Able to stand and move about the room. Steady gait, however SOB with activity. Replaced O2 at 3L. Pt c/o dry nose with small amount of bloody discharge. Humidification added to O2. Pt denies pain, denies nausea. Reports decreased appetite since onset of illness on sunday. Also reports hx of diarrhea. IV access obtained. in to see pt. Orders obtained. Per infuse abx prior to 2nd unit PRBC. Oriented to room and routine. Supportive daughter at bedside. call light in reach.
[2018-05-02 20:51] LABS: Adenovirus Not Detected (Not Detect); Coronavirus 229E Not Detected (Not Detect); Coronavirus HKU1 Not Detected (Not Detect); Coronavirus NL 63 Not Detected (Not Detect); Coronavirus OC43 Not Detected (Not Detect); Human Metapneumovirus Detected (Not Detect); Human Rhinovirus/Enterovirus Not Detected (Not Detect); Influenza A Not Detected (Not Detect); Influenza B Not Detected (Not Detect)
[2018-05-02 20:52] LABS: Bordetella pertussis Not Detected (Not Detect); Chlamydophila pneumoniae Not Detected (Not Detect); Mycoplasma pneumoniae Not Detected (Not Detect); Parainfluenza Virus 1 Not Detected (Not Detect); Parainfluenza Virus 2 Not Detected (Not Detect); Parainfluenza Virus 3 Not Detected (Not Detect); Parainfluenza Virus 4 Not Detected (Not Detect); Respiratory Syncytial Virus Not Detected (Not Detect)
[2018-05-02] MEDS: BENZONATATE 100 MG CAPSULE PO (21:53)
[2018-05-02] MEDS: guaiFENesin ER 600 MG TAB 1200 MG PO (21:53)
[2018-05-02] MEDS: HEPARIN 5,000 UNIT/ML VIAL 5000 UNIT SUBCUT (21:53)
[2018-05-02 22:00] LABS: Appearance Urine UA CLEAR; Bilirubin Urine UA NEGATIVE (NEGATIVE); Color Urine UA YELLOW; Glucose Urine UA TRACE g/dL (Negative); Ketones Urine UA NEGATIVE (NEGATIVE); Leukocyte Esterase Urine UA NEGATIVE (NEGATIVE); Nitrite Urine UA NEGATIVE (Negative); Occult Blood Urine UA 3+ (Negative); Protein Urine UA 3+ (Negative); Specific Gravity Urine UA 1.015 (1.000-1.035); Urobilinogen Urine UA 0.2 E.U./dL (0.2); pH Urine UA 6.5 (4.5-8.0)
[2018-05-02 22:17] LABS: RBC Urine 5-10/HPF (0-5/HPF); WBC Urine 1-5/HPF (0-5/HPF)
[2018-05-02 22:18] LABS: Bacteria Urine Few (2-10); Culture Indicated Urine Cult Not Indicated
[2018-05-02] MEDS: FUROSEMIDE 40 MG TABLET PO (23:50)
[2018-05-03] VITALS (22 sets, daily range): BP systolic 126–153; BP diastolic 57–94; PULSE 81–119; RESP 18–26; TEMP 36.6–36.9; O2SAT 92–98
[2018-05-03] MEDS: metroNIDAZOLE 500 MG/100 ML PIGGYBACK 100 MG IV ×4 (01:02→19:05)
[2018-05-03] MEDS: LEVALBUTEROL 1.25 MG/0.5 ML NEB INH ×6 (01:38→19:33)
[2018-05-03] MEDS: POTASSIUM CHLORIDE 20 MEQ/15 ML UDC 40 MEQ PO (02:50)
[2018-05-03] MEDS: METOPROLOL TARTRATE 5 MG/5 ML INJ IV (03:08)
[2018-05-03 05:24] LABS: Alanine Aminotransferase 21 IU/L (9-52); Albumin 3.2 g/dL (3.5-5.0); Albumin Globulin Ratio 1.1 (1.0-2.8); Alkaline Phosphatase 96 U/L (38-126); Aspartate Aminotransferase 23 IU/L (14-36); BUN Creatinine Ratio 15.3 (6-22); Bilirubin Total 2.6 mg/dL (0.2-1.3); Blood Urea Nitrogen 26 mg/dL (7-17); Calcium 8.1 mg/dL (8.4-10.2); Carbon Dioxide 22 mmol/L (22-32); Chloride 104 mmol/L (98-107); Estimated Glomerular Filt Rate 29.1 mL/min (>60); Glucose 188 mg/dL (80-110); HEMOLYSIS < 15 (0-50); Potassium 4.3 mmol/L (3.4-5.1); Sodium 136 mmol/L (137-145); Total Protein 6.2 g/dL (6.3-8.2)
[2018-05-03 05:48] LABS: Magnesium 1.7 mg/dL (1.6-2.3)
[2018-05-03] MEDS: FLUCONAZOLE 100 MG TABLET 200 MG PO (07:47)
[2018-05-03] MEDS: guaiFENesin ER 600 MG TAB 1200 MG PO ×2 (07:47→21:22)
[2018-05-03] MEDS: METOPROLOL ER 50 MG TABLET 150 MG PO ×2 (07:49→17:41)
[2018-05-03 08:02] LABS: Hematocrit 28.4 % (36-46); Hemoglobin 9.7 g/dL (12.0-16.0); Mean Corpuscular HGB Conc 34.3 % (30-36); Mean Corpuscular Volume 84.6 fL (80-100); Red Blood Cell Count 3.35 X10^6/uL (4.0-5.2); Red Cell Distribution Width 13.8 % (11.6-14.8)
[2018-05-03 08:05] LABS: White Blood Cell Count 1.4 X10^3/uL (4.5-11.0)
[2018-05-03 08:07] LABS: Add Manual Diff / Slide Review YES; Platelet Count 28 X10^3/uL (150-400)
[2018-05-03 08:24] LABS: Neutrophils Absolute Manual 392 /uL (3000-5900); Total Cells Counted 100
[2018-05-03 08:25] LABS: Platelet Estimate Adequate on smear; Rouleaux 1+
[2018-05-03 08:26] LABS: Morphology Comment PLATELET CLUMPING
--- NOTE | 2018-05-03 09:00 | CM.DANOTE ---
DCP: Case received, EMR reviewed and met with patient. Introduced self and role. DCP template completed with information currently available. Patient is a 77 year old female who admitted yesterday afternoon to the care of the hospitalist team. PCP: Dr. Melendez. Payer: confirmed: Medicare/[employer]. Patient came to hospital via private vehicle, due to symptoms of weakness, shortness of breath. Patient is Neutropenic, goes to [facility] for treatment for Meningioma. Patient has history of Kidney Disease, as well a Amyloidosis. Patient carries diagnosis of Pneumonia. Patient has also been getting frequent blood transfusions. Daughter was at bedside, who lives in [place]. Patient lives on [address] with spouse. Patient stated that she is independent at home. P: DCP to continue to follow. To be determined on progress here in hospital. Patient should be able to return home when stable. Tamara Lawton RN/Hydrotherapist
--- NOTE | 2018-05-03 11:28 | PT.IIE ---
Current Diagnoses Pneumonia, unspecified organism (05/02/18) Surgical History (Last Reviewed 05/02/18 @ 18:12 by Melvina Adamson DO) History of bone marrow biopsy (Acute) History of brain surgery (Acute) Hx laparoscopic cholecystectomy (Acute) Hx of cholecystectomy (Acute) Medical History (Last Reviewed 05/02/18 @ 18:11 by Melvina Adamson DO) Amyloidosis (Acute) CKD (chronic kidney disease) (Acute) Cancer, skin, squamous cell (Acute) HTN (hypertension) (Acute) Hyperlipidemia (Acute) Intermittent atrial fibrillation (Acute) 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) Physical Therapy Inpatient Evaluation/Re-Eval M1 PT/OT-IP Prior Functional Status Start: 05/03/18 11:03 Freq: NEEDED Status: Active Protocol: Document 05/03/18 10:20 HH (Rec: 05/03/18 11:27 [email or web address]) Medical Review Prior Functional Status Medical History Reviewed Yes Communication No deficits noted Mobility and Gait Pt is an independent ambulator at home and community without AD. Pt does have a FWW at home but never used it. Pt also drives and negotiate 3 flights of stairs at home everyday independently. Activities of Daily Living and IADL's Pt is independent for all ADLs and IADLs without AD. Social History Household Members spouse Living Arrangements House Number of Floors (Floors) 3 or More Floors Number of Stairs To Enter/Railing? 3 flights of stairs with 12 steps each, B rails. 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 Patient lives in a 3 story home on [address] with spouse. Patient stated that she is independent at home and community without using AD. Pt has 1 daughter and 1 son. Pt daughter lives in [place] and at bedside upon assessment today. M2 PT-IP Current Condition Start: 05/03/18 11:03 Freq: NEEDED Status: Active Protocol: Document 05/03/18 10:20 HH (Rec: 05/03/18 11:27 [email or web address]) Physical Therapy Current Condition Current Condition Evaluation Date 05/03/18 Treatment Diagnosis Acute hypoxemic, PNA, difficulty in walking, generalized muscle weakness Onset Date 05/02/18 Weight Bearing Status Weight Bearing Status Weight Bear as Tolerated M3 PT-IP Subjective Start: 05/03/18 11:03 Freq: NEEDED Status: Active Protocol: Document 05/03/18 10:20 (Rec: 05/03/18 11:27 [email or web address]) Subjective Physical Therapy Visit Type Type Initial Evaluation Visit Start Time 10:20 Visit Stop Time 11:00 Total Visit Minutes 40 Notes Per RN, pt has been getting OOB to bathroom for toileting without AD SBA x 1pa. Pt's RR before and during mobility maintained 27-32 times/min and c/o SOB sometimes. Pt's on 1L /min O2 NC Number of BASIC SCIENCES DEAN Visits 0 Physical Therapy Visit Comments Patient Comments I feel better today and vaughn been walking to the bathroom with nursing staff Patient Goals To return home Therapy Pain Assessment Pain Present Pain Present Denied Pain M4 PT-IP Mobility and Gait Start: 05/03/18 11:03 Freq: NEEDED Status: Active Protocol: Document 05/03/18 10:20 (Rec: 05/03/18 11:27 [email or web address]) PT-Transfer Assessment Sit to and From Stand Sit to and from Stand Standby Assistance Equipment Transfer Assistive Device None Gait Belt Transfers Transfer Destination Bed Chair Toilet Transfer Technique Stand Step Pivot Transfer Ability Level of Assist Standby Assistance Comments Mobility Comments Pt's BP maintains from 130- 140s/70s-80s HR 90s during transfer activities. Pt did not use B UEs for push off during sit to stand from low chair and toilet. Pt was able to maintain standing balance x 3 mins without support while cleaning up after toileting. She is able to safely transfer herself with stand step pivot to bedside chair or toilet chair without signs of LOB or acute distress. RR ranged from 25-32 times/ min during mobility. Gait Assessment Gait Gait Assistance Required: Standby Assistance Distance (Feet) 30 Able to Maintain Weight Bearing Status Yes During Gait Assistive Devices Assistive Device None Gait Belt Gait Deviations General Gait Pattern Decreased Stride Length Decreased Feet Clearance Factors Limiting Gait Function Factors Limiting Gait Function Decreased Activity Tolerance Respiratory Distress Comments Gait Comments Pt amb from bedside chair to bathroom for toileting, then to counter for hand washing and back to bedside chair x 2 without AD SBA. Pt demonstrates decreased feet clearance and stride per daughter reports but she did not appears acute distress and LOB. Pt presents steady gait and very good safety awareness with surrounding lines and tubes. Pt's O2 sat dropped to 85% but she was able to recover to 95% within 10 secs after education on diaphragmatic breathing. Pt did c/o slight SOB after amb. Stair Climbing Assessment Comments Stair Climbing Comments did not attempt due to SOB PT-Balance Assessment Sitting Balance and Reactions Static Sitting Balance Ability Normal Dynamic Sitting Balance Ability Normal Standing Balance and Reactions Static Standing Balance Ability Good Dynamic Standing Balance Ability Good M5 PT-IP Objective Assessments Start: 05/03/18 11:03 Freq: NEEDED Status: Active Protocol: Document 05/03/18 10:20 (Rec: 05/03/18 11:27 [email or web address]) Orientation Orientation/Cognition Level of Alertness Alert Orientation Name Age Birthday Month Date Year Day of Week Place Situation Language Function Ability No Deficits Noted Safety Awareness Understands Safety Issues Memory Description No Deficits Noted Gross Range of Motion Upper Extremity ROM Assessment Within Functional Limits Lower Extremity ROM Assessment Within Functional Limits Strength Upper Extremity Strength Assessment Within Functional Limits Lower Extremity Strength Assessment Within Functional Limits Coordination Assessment Gross Coordination Gross Coordination WNL Sensation Assessment Sensation Gross Sensation WNL Muscle Tone Muscle Tone WNL Yes M6 PT-IP Treatment Start: 05/03/18 11:03 Freq: NEEDED Status: Active Protocol: Document 05/03/18 10:20 HH (Rec: 05/03/18 11:27 [email or web address]) Physical Therapy Treatment Education Education Provided Safety M7 PT-IP Assessment and Plan Start: 05/03/18 11:03 Freq: NEEDED Status: Active Protocol: Document 05/03/18 10:20 (Rec: 05/03/18 11:27 [email or web address]) PT Summary Assessment and Plan Potential Rehabilitation Potential Good Status of Condition at Evaluation Evolving Summary Impairments Activity Tolerance Assessment Summary Pt is a very pleasant 77yo female admitted to for acute hypoxemic respiratory failure and PNA. Pt states Im much better today. Pt presents slight decreased feet clearance and stride per daughter report but she only requires SBA for overall mobility without using AD upon assessment. Pt does demonstrates slight drop in SpO2 during amb and transfer and her RR maintained at 30s during mobility, but she was able to reach back to baseline within 10 secs throught deep breathing exercise. In my professional opinion, d/c pt to home with HH for cont overall strengthening and increase in mobility when medically stable. Goals Bed Mobility Goal Independent Transfer Goal Independent Gait Goal Independent Gait Distance 200 Other Goals 12 steps x 3 with B rails Days to Meet Goals 5 Frequency of Treatment Frequency Of Treatment Once a Day Treatment Plan Physical Therapy Treatment Plan Gait Training Therapeutic Exercise Discharge Planning Other Recommendations and Next Treatment monitor vss Focus gait training as xochitl attempt stair climbing Recommendations To Nursing Amount of Assist Needed Standby Assistance 1 Person Assist Discharge Recommendations PT Discharge Recommendations Home Home Health
[2018-05-03] MEDS: ACYCLOVIR 400 MG TABLET 800 MG PO (12:03)
[2018-05-03] MEDS: AMLODIPINE 5 MG TABLET PO (12:03)
[2018-05-03] MEDS: ACETAMINOPHEN 325 MG TABLET 650 MG PO (12:13)
--- NOTE | 2018-05-03 13:01 | PM.PN.1 ---
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 Stanton at the [facility] for shortness of breath, cough, fever, and diarrhea. Overnight: The patient was stable and there were no acute events. She converted into atrial fibrillation with heart rate controlled in the 90 to 100's. This morning patient is resting in bedside chair comfortably and in no acute distress. She reports significant fatigue and back pain. She endorses that her breathing has slightly improved. She denies headache, chest pain, abdominal pain, nausea, vomiting, fever, chills, dysuria, diarrhea constipation. She is voiding and eliminating without difficulty. She is up ambulating minimally. Exam Vital Signs (past 8 hours): - 05/03/18 06:00 05/03/18 07:00 05/03/18 07:24 Temperature Pulse Rate 94 H 96 H 105 H Respiratory Rate 26 H 26 H 22 Blood Pressure 144/81 H 145/79 H Pulse Oximetry 95 96 96 05/03/18 08:00 05/03/18 09:00 05/03/18 10:00 Temperature 97.8 F Pulse Rate 105 H 86 93 H Respiratory Rate 18 22 19 Blood Pressure 145/57 H 132/60 134/83 Pulse Oximetry 96 95 97 05/03/18 11:00 05/03/18 12:00 Temperature 98.1 F Pulse Rate 108 H 90 Respiratory Rate 25 H 20 Blood Pressure 140/82 126/66 Pulse Oximetry 94 95 Oxygen Delivery Method Nasal Cannula Oxygen Flow Rate 2 Narrative Exam Narrative: General: Elderly female with pallor sitting in bedside chair and in no acute distress, well-developed, well-nourished, appropriately interactive. HEENT: Normocephalic, atraumatic. External ears without defect. Pupils equal, round, and reactive to light. Anicteric sclerae, moist conjunctivae, and no lid lag. Neck: Supple with full range of motion. No jugular venous distension. No bruits. No lymphadenopathy or thyromegaly. Cardiovascular: Irregularly irregular without murmurs, rubs, or gallops appreciated Pulmonary: Bilateral rhonchi throughout all lung hussein slightly improved. No wheeze or crackle. Normal respiratory effort with no use of accessory muscles. Abdomen: Soft, bowel sounds present nontender, nondistended. No hepatosplenomegaly or masses appreciated. Extremities: No clubbing, cyanosis, or edema. Skin: Normal temperature, turgor, and texture; no rash, ulcers, or subcutaneous nodules appreciated. Neurological: Cranial nerves grossly intact. Psychiatric: Normal mood and affect. Alert and oriented to person, place, and time. Objective Labs Result Diagrams: 05/03/18 07:30 05/03/18 05:01 Labs: Laboratory Results - last 24 hr 05/02/18 05/02/18 05/02/18 10:34 17:55 17:55 WBC 0.8 L* RBC 2.95 L Hgb 8.8 L Hct 25.7 L MCV 87.4 MCH 29.8 MCHC 34.1 RDW 13.4 Plt Count 38 L Neut % (Auto) Not Reportable Lymph % (Auto) Not Reportable [place] % (Auto) Not Reportable Eos % (Auto) Not Reportable Baso % (Auto) Not Reportable Lymph # (Auto) Not Reportable [place] # (Auto) Not Reportable Baso # (Auto) Not Reportable Total Counted 20 Seg Neutrophils % 30.0 L Band Neutrophils % 10.0 H Lymphocytes % (Manual) 35.0 Atypical Lymphs % Monocytes % (Manual) 25.0 H Neutrophils # (Manual) 320 L Differential Comment Platelet Estimate Decreased on smear RBC Morphology Normal morphology Rouleaux Sodium Potassium Chloride Carbon Dioxide BUN Creatinine Estimated GFR BUN/Creatinine Ratio Glucose Lactate Calcium Magnesium Total Bilirubin AST ALT Alkaline Phosphatase Total Protein Albumin Globulin Albumin/Globulin Ratio Procalcitonin 0.84 H Urine Color Urine Appearance Urine pH Ur Specific [place] Urine Protein Urine Glucose (UA) Urine Ketones Urine Occult Blood Urine Nitrate Urine Bilirubin Urine Urobilinogen Ur Leukocyte Esterase Urine RBC Urine WBC Urine Bacteria Ur Culture Indicated? Nasal Screen MRSA (PCR) Stl C. cayetanensis PCR Stool Rotavirus (PCR) Stool Adenovirus (PCR) Stool Astrovirus (PCR) Stool Cryptosporidium PCR Stl E.coli Shiga Tox PCR St Sh/Enteroin Ecoli PCR Stool E coli O157 PCR Stl Enterotoxigenic E PCR Stool EPEC (PCR) Stl E. histolytica PCR Stool Giardia Lamblia PCR Stool Sapovirus (PCR) Stl P. shigelloides PCR St Y.enterocolitica PCR Stool Vibrio (PCR) Stl Vibrio cholerae PCR Stl Enteroaggr Ecoli PCR Stl Norovirus GI/GII PCR Chlamy pneumoniae PCR Adenovirus (PCR) B.parapertussis DNA PCR Campylobacter (PCR) C. difficile Tox (PCR) Coronavirus OC43 (PCR) Coronavirus HKU1 (PCR) Coronavirus 229E (PCR) Coronavirus NL63 (PCR) Human Metapneumovir PCR Influenza Type A (PCR) Influenza Type B (PCR) M. pneumoniae (PCR) Parainfluenza 1 (PCR) Parainfluenza 2 (PCR) Parainfluenza 3 (PCR) Parainfluenza 4 (PCR) RSV (PCR) Entero/Rhino (PCR) Salmonella (PCR) Blood Type O Positive Antibody Screen Negative Crossmatch See Detail 05/02/18 05/02/18 05/02/18 17:55 17:55 17:55 WBC RBC Hgb Hct MCV MCH MCHC RDW Plt Count Neut % (Auto) Lymph % (Auto) [place] % (Auto) Eos % (Auto) Baso % (Auto) Lymph # (Auto) [place] # (Auto) Baso # (Auto) Total Counted Seg Neutrophils % Band Neutrophils % Lymphocytes % (Manual) Atypical Lymphs % Monocytes % (Manual) Neutrophils # (Manual) Differential Comment Platelet Estimate RBC Morphology Rouleaux Sodium 134 L Potassium 3.4 Chloride 102 Carbon Dioxide 21 L BUN 26 H Creatinine 1.60 H Estimated GFR 31.3 L BUN/Creatinine Ratio 16.3 Glucose 134 H Lactate 0.8 Calcium 7.9 L Magnesium Total Bilirubin 4.2 H AST 25 ALT 29 Alkaline Phosphatase 101 Total Protein 6.3 Albumin 3.4 L Globulin 2.9 Albumin/Globulin Ratio 1.2 Procalcitonin Urine Color Urine Appearance Urine pH Ur Specific [place] Urine Protein Urine Glucose (UA) Urine Ketones Urine Occult Blood Urine Nitrate Urine Bilirubin Urine Urobilinogen Ur Leukocyte Esterase Urine RBC Urine WBC Urine Bacteria Ur Culture Indicated? Nasal Screen MRSA (PCR) Stl C. cayetanensis PCR Stool Rotavirus (PCR) Stool Adenovirus (PCR) Stool Astrovirus (PCR) Stool Cryptosporidium PCR Stl E.coli Shiga Tox PCR St Sh/Enteroin Ecoli PCR Stool E coli O157 PCR Stl Enterotoxigenic E PCR Stool EPEC (PCR) Stl E. histolytica PCR Stool Giardia Lamblia PCR Stool Sapovirus (PCR) Stl P. shigelloides PCR St Y.enterocolitica PCR Stool Vibrio (PCR) Stl Vibrio cholerae PCR Stl Enteroaggr Ecoli PCR Stl Norovirus GI/GII PCR Chlamy pneumoniae PCR Not detected Adenovirus (PCR) Not detected B.parapertussis DNA PCR Not detected Campylobacter (PCR) C. difficile Tox (PCR) Coronavirus OC43 (PCR) Not detected Coronavirus HKU1 (PCR) Not detected Coronavirus 229E (PCR) Not detected Coronavirus NL63 (PCR) Not detected Human Metapneumovir PCR Detected H Influenza Type A (PCR) Not detected Influenza Type B (PCR) Not detected M. pneumoniae (PCR) Not detected Parainfluenza 1 (PCR) Not detected Parainfluenza 2 (PCR) Not detected Parainfluenza 3 (PCR) Not detected Parainfluenza 4 (PCR) Not detected RSV (PCR) Not detected Entero/Rhino (PCR) Not detected Salmonella (PCR) Blood Type Antibody Screen Crossmatch 05/02/18 05/02/18 05/02/18 21:57 Unknown Unknown WBC RBC Hgb Hct MCV MCH MCHC RDW Plt Count Neut % (Auto) Lymph % (Auto) [place] % (Auto) Eos % (Auto) Baso % (Auto) Lymph # (Auto) [place] # (Auto) Baso # (Auto) Total Counted Seg Neutrophils % Band Neutrophils % Lymphocytes % (Manual) Atypical Lymphs % Monocytes % (Manual) Neutrophils # (Manual) Differential Comment Platelet Estimate RBC Morphology Rouleaux Sodium Potassium Chloride Carbon Dioxide BUN Creatinine Estimated GFR BUN/Creatinine Ratio Glucose Lactate Calcium Magnesium Total Bilirubin AST ALT Alkaline Phosphatase Total Protein Albumin Globulin Albumin/Globulin Ratio Procalcitonin Urine Color Yellow Urine Appearance Clear Urine pH 6.5 Ur Specific [place] 1.015 Urine Protein 3+ H Urine Glucose (UA) Trace H Urine Ketones Negative Urine Occult Blood 3+ H Urine Nitrate Negative Urine Bilirubin Negative Urine Urobilinogen 0.2 Ur Leukocyte Esterase Negative Urine RBC 5-10/hpf H Urine WBC 1-5/hpf Urine Bacteria Few (2-10) H Ur Culture Indicated? Cult not indicated Nasal Screen MRSA (PCR) Negative for mrsa Stl C. cayetanensis PCR Not detected Stool Rotavirus (PCR) Not detected Stool Adenovirus (PCR) Not detected Stool Astrovirus (PCR) Not detected Stool Cryptosporidium PCR Not detected Stl E.coli Shiga Tox PCR Not detected St Sh/Enteroin Ecoli PCR Not detected Stool E coli O157 PCR Not Reportable Stl Enterotoxigenic E PCR Not detected Stool EPEC (PCR) Not detected Stl E. histolytica PCR Not detected Stool Giardia Lamblia PCR Not detected Stool Sapovirus (PCR) Not detected Stl P. shigelloides PCR Not detected St Y.enterocolitica PCR Not detected Stool Vibrio (PCR) Not detected Stl Vibrio cholerae PCR Not detected Stl Enteroaggr Ecoli PCR Not detected Stl Norovirus GI/GII PCR Not detected Chlamy pneumoniae PCR Adenovirus (PCR) B.parapertussis DNA PCR Campylobacter (PCR) Not detected C. difficile Tox (PCR) Not detected Coronavirus OC43 (PCR) Coronavirus HKU1 (PCR) Coronavirus 229E (PCR) Coronavirus NL63 (PCR) Human Metapneumovir PCR Influenza Type A (PCR) Influenza Type B (PCR) M. pneumoniae (PCR) Parainfluenza 1 (PCR) Parainfluenza 2 (PCR) Parainfluenza 3 (PCR) Parainfluenza 4 (PCR) RSV (PCR) Entero/Rhino (PCR) Salmonella (PCR) Not detected Blood Type Antibody Screen Crossmatch 05/03/18 05/03/18 05/03/18 05:00 05:01 05:01 WBC RBC Hgb Hct MCV MCH MCHC RDW Plt Count Neut % (Auto) Lymph % (Auto) [place] % (Auto) Eos % (Auto) Baso % (Auto) Lymph # (Auto) [place] # (Auto) Baso # (Auto) Total Counted Seg Neutrophils % Band Neutrophils % Lymphocytes % (Manual) Atypical Lymphs % Monocytes % (Manual) Neutrophils # (Manual) Differential Comment Platelet Estimate RBC Morphology Rouleaux Sodium 136 L Potassium 4.3 Chloride 104 Carbon Dioxide 22 BUN 26 H Creatinine 1.70 H Estimated GFR 29.1 L BUN/Creatinine Ratio 15.3 Glucose 188 H Lactate Calcium 8.1 L Magnesium 1.7 Total Bilirubin 2.6 H AST 23 ALT 21 Alkaline Phosphatase 96 Total Protein 6.2 L Albumin 3.2 L Globulin 3.0 Albumin/Globulin Ratio 1.1 Procalcitonin 1.30 H Urine Color Urine Appearance Urine pH Ur Specific [place] Urine Protein Urine Glucose (UA) Urine Ketones Urine Occult Blood Urine Nitrate Urine Bilirubin Urine Urobilinogen Ur Leukocyte Esterase Urine RBC Urine WBC Urine Bacteria Ur Culture Indicated? Nasal Screen MRSA (PCR) Stl C. cayetanensis PCR Stool Rotavirus (PCR) Stool Adenovirus (PCR) Stool Astrovirus (PCR) Stool Cryptosporidium PCR Stl E.coli Shiga Tox PCR St Sh/Enteroin Ecoli PCR Stool E coli O157 PCR Stl Enterotoxigenic E PCR Stool EPEC (PCR) Stl E. histolytica PCR Stool Giardia Lamblia PCR Stool Sapovirus (PCR) Stl P. shigelloides PCR St Y.enterocolitica PCR Stool Vibrio (PCR) Stl Vibrio cholerae PCR Stl Enteroaggr Ecoli PCR Stl Norovirus GI/GII PCR Chlamy pneumoniae PCR Adenovirus (PCR) B.parapertussis DNA PCR Campylobacter (PCR) C. difficile Tox (PCR) Coronavirus OC43 (PCR) Coronavirus HKU1 (PCR) Coronavirus 229E (PCR) Coronavirus NL63 (PCR) Human Metapneumovir PCR Influenza Type A (PCR) Influenza Type B (PCR) M. pneumoniae (PCR) Parainfluenza 1 (PCR) Parainfluenza 2 (PCR) Parainfluenza 3 (PCR) Parainfluenza 4 (PCR) RSV (PCR) Entero/Rhino (PCR) Salmonella (PCR) Blood Type Antibody Screen Crossmatch 05/03/18 07:30 WBC 1.4 L* D RBC 3.35 L Hgb 9.7 L Hct 28.4 L MCV 84.6 MCH 29.0 MCHC 34.3 RDW 13.8 Plt Count 28 L* Neut % (Auto) Not Reportable Lymph % (Auto) Not Reportable [place] % (Auto) Not Reportable Eos % (Auto) Not Reportable Baso % (Auto) Not Reportable Lymph # (Auto) Not Reportable [place] # (Auto) Not Reportable Baso # (Auto) Not Reportable Total Counted 100 Seg Neutrophils % 28.0 L Band Neutrophils % Lymphocytes % (Manual) 50.0 H Atypical Lymphs % 10.0 H Monocytes % (Manual) 12.0 H Neutrophils # (Manual) 392 L Differential Comment Platelet clumping Platelet Estimate Adequate on smear RBC Morphology Not Reportable Rouleaux 1+ H Sodium Potassium Chloride Carbon Dioxide BUN Creatinine Estimated GFR BUN/Creatinine Ratio Glucose Lactate Calcium Magnesium Total Bilirubin AST ALT Alkaline Phosphatase Total Protein Albumin Globulin Albumin/Globulin Ratio Procalcitonin Urine Color Urine Appearance Urine pH Ur Specific [place] Urine Protein Urine Glucose (UA) Urine Ketones Urine Occult Blood Urine Nitrate Urine Bilirubin Urine Urobilinogen Ur Leukocyte Esterase Urine RBC Urine WBC Urine Bacteria Ur Culture Indicated? Nasal Screen MRSA (PCR) Stl C. cayetanensis PCR Stool Rotavirus (PCR) Stool Adenovirus (PCR) Stool Astrovirus (PCR) Stool Cryptosporidium PCR Stl E.coli Shiga Tox PCR St Sh/Enteroin Ecoli PCR Stool E coli O157 PCR Stl Enterotoxigenic E PCR Stool EPEC (PCR) Stl E. histolytica PCR Stool Giardia Lamblia PCR Stool Sapovirus (PCR) Stl P. shigelloides PCR St Y.enterocolitica PCR Stool Vibrio (PCR) Stl Vibrio cholerae PCR Stl Enteroaggr Ecoli PCR Stl Norovirus GI/GII PCR Chlamy pneumoniae PCR Adenovirus (PCR) B.parapertussis DNA PCR Campylobacter (PCR) C. difficile Tox (PCR) Coronavirus OC43 (PCR) Coronavirus HKU1 (PCR) Coronavirus 229E (PCR) Coronavirus NL63 (PCR) Human Metapneumovir PCR Influenza Type A (PCR) Influenza Type B (PCR) M. 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 Stanton at the [facility] for shortness of breath, cough, fever, and diarrhea. 1. Acute hypoxemic respiratory failure, present on admission. Active. -Patient presented with cough, dyspnea, and hypoxemia with-Low oxygen saturations mid 80s when supplemental oxygen is removed. -Continue supplemental oxygen as needed to keep oxygen saturations >92%. Titrate off as tolerated. -Ordered levalbuterol every 6 hr as needed for wheezing and shortness of breath. -Ordered respiratory therapy evaluation and treatment. 2. Acute viral and superimposed bacterial community-acquired bilateral pneumonia, present on admission. Active. -Patient is severely immunocompromised and neutropenic presenting with cough, dyspnea, fever, and diarrhea. -Ordered complete pneumonia workup including: Respiratory viral PCR which was positive for human metapneumovirus. Strep pneumonia and Legionella urine antigens, pending. Sputum culture grew mixed normal amrita. Blood culture x 2 has no growth to date. -Continue supplemental oxygen as above. -Ordered Tessalon Perles 100 mg t.i.d. as needed for cough and guaifenesin 1200 mg twice daily for excessive sputum production. -Ordered Acapella to help clear sputum. -Ordered droplet precautions. -Lactic acid normal at 0.08. -Procalcitonin elevated at 0.84 and repeat 1.30. Continue to trend daily. Per Dr. Trujillo of Infectious Disease, procalcitonin should decrease by approximately 50% if infectious process treated adequately. -CT chest without contrast demonstrated bilateral pneumonia more pronounced within the right upper lobe and left lower lobe. -Started on cefepime 2 g every 24 hr due to creatinine clearance and Flagyl 500 mg every 6 hr, for broad-spectrum coverage including anaerobes. Discussed patient with Dr. Trujillo who agrees with treatment plan. 3. Acute watery diarrhea on chronic antibiotics, present on admission. Active. -Patient reports 4-5 bowel movements per day. -GI panel negative for infectious diarrhea. -Symptom management. 4. 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 Active. -Patient received 1 unit of PRBC at oncologist's office. Will receive 2nd unit of PRBC in house. PRBCs have to be special ordered and irradiated. -Continue to monitor CBC daily with blood draws in Pediatric 2. -Patient is severely neutropenic with ANC of 280 on admission. ANC increased to 392 today. 5. 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 Active. -Patient is on azacitidine and darbepoetin injection every 2 weeks. Her oncologist is Dr. Emily Thompson at [facility] and Dr. Naeem Stanton at [facility]. -Patient is transfusion dependent and usually receives 2 units irradiated PRBC per week. -Continue prophylactic fluconazole 200 mg daily and acyclovir 800 mg daily. Holding levofloxacin 500 mg daily. 6. Amyloidosis with secondary chronic kidney disease stage 3, chronic, present on admission. Presumed stable. -Status post melphalan x 12 cycles and dexamethasone. Appears to be stable. -Baseline creatinine 1.6. Initial creatinine on admission 1.6. Patient is followed by Nephrology outpatient. -Avoid nephrotoxic agents. Patient received 1 dose of furosemide 40 mg IV x1 in between 1st and 2nd unit of PRBC with creatinine elevating to 1.7 today. -Monitor creatinine daily. 7. Hyperbilirubinemia, acuity unknown, present on admission. Resolving. -Secondary to biliary stasis from acute illness. -Patient has a history of recent cholecystectomy. -Monitor bilirubin daily. 8. History of paroxysmal atrial fibrillation, not present on admission. Inactive. -Continue to monitor closely on telemetry. -Patient is currently in sinus rhythm with rate controlled in the 70s. -Continue metoprolol succinate 150 mg twice daily. 9. Hyperlipidemia, chronic, present on admission. Stable. -Continue atorvastatin 40 mg daily at bedtime. 10. History of epistasis. -Use humidified supplemental oxygen as needed. Code status: Patient is full code but would only want 5 rounds of CPR. Disposition: The patient is likely to discharge home to [facility] in 2-3 days depending upon improvement in oxygenation and treatment and resolution of bilateral pneumonia. Quality VTE Deep Vein Thrombosis/Pulmonary Embolism Present on Admission: No
[2018-05-03] MEDS: ATORVASTATIN 20 MG TABLET 40 MG PO (17:41)
[2018-05-03] MEDS: CEFEPIME 2 GM in SODIUM CHLORIDE 0.9% 100 ML 200 ML IV (20:01)
[2018-05-04] VITALS (16 sets, daily range): BP systolic 126–145; BP diastolic 66–82; PULSE 92–107; RESP 16–25; TEMP 36.3–37.1; O2SAT 93–98
[2018-05-04] MEDS: SODIUM CHLORIDE 0.9% FLUSH 10 ML IV ×3 (01:23→23:15)
[2018-05-04] MEDS: SODIUM CHLORIDE 0.9% 250 ML 21 ML IV (01:23)
[2018-05-04] MEDS: metroNIDAZOLE 500 MG/100 ML PIGGYBACK 100 MG IV ×4 (01:23→19:20)
[2018-05-04] MEDS: LEVALBUTEROL 1.25 MG/0.5 ML NEB INH ×6 (02:50→23:21)
[2018-05-04 05:30] LABS: Alanine Aminotransferase 23 IU/L (9-52); Albumin 2.7 g/dL (3.5-5.0); Alkaline Phosphatase 77 U/L (38-126); Aspartate Aminotransferase 18 IU/L (14-36); BUN Creatinine Ratio 16.5 (6-22); Bilirubin Total 0.8 mg/dL (0.2-1.3); Blood Urea Nitrogen 28 mg/dL (7-17); Calcium 7.6 mg/dL (8.4-10.2); Carbon Dioxide 21 mmol/L (22-32); Chloride 104 mmol/L (98-107); Estimated Glomerular Filt Rate 29.1 mL/min (>60); Globulin 2.8 g/dL (1.7-4.1); Glucose 125 mg/dL (80-110); HEMOLYSIS < 15 (0-50); Potassium 3.3 mmol/L (3.4-5.1); Sodium 134 mmol/L (137-145); Total Protein 5.5 g/dL (6.3-8.2)
[2018-05-04 05:31] LABS: Hematocrit 26.1 % (36-46); Hemoglobin 9.1 g/dL (12.0-16.0); Mean Corpuscular Hemoglobin 29.7 PG (26-34); Mean Corpuscular Volume 84.9 fL (80-100); Red Blood Cell Count 3.07 X10^6/uL (4.0-5.2); Red Cell Distribution Width 13.8 % (11.6-14.8)
[2018-05-04 05:53] LABS: White Blood Cell Count 0.6 X10^3/uL (4.5-11.0)
[2018-05-04 05:54] LABS: Add Manual Diff / Slide Review YES; Platelet Count 45 X10^3/uL (150-400)
[2018-05-04 07:42] LABS: Total Cells Counted 50
[2018-05-04 07:43] LABS: Neutrophils Absolute Manual 156 /uL (3000-5900)
[2018-05-04 07:45] LABS: RBC Morphology Normal Morphology
[2018-05-04 07:57] LABS: Procalcitonin 1.36 ng/mL (<0.5)
[2018-05-04] MEDS: METOPROLOL ER 50 MG TABLET 150 MG PO ×2 (08:28→16:54)
[2018-05-04] MEDS: guaiFENesin ER 600 MG TAB 1200 MG PO ×2 (08:29→21:21)
[2018-05-04] MEDS: FLUCONAZOLE 100 MG TABLET 200 MG PO (08:29)
--- NOTE | 2018-05-04 08:52 | PM.PN.1 ---
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 Stanton at the [facility] for shortness of breath, cough, fever, and diarrhea. This morning patient notes cough is a little worse from over night. The cough is productive of yellow-brown phlegm with tinges of blood. She has been afebrile. Exam Vital Signs (past 8 hours): - 05/04/18 01:15 05/04/18 01:37 05/04/18 02:50 Temperature 97.3 F L Pulse Rate 106 H 98 H Respiratory Rate 25 H 22 Blood Pressure 145/79 H Pulse Oximetry 94 95 93 05/04/18 05:00 05/04/18 07:48 Temperature 97.7 F Pulse Rate 105 H 97 H Respiratory Rate 19 20 Blood Pressure 129/76 Pulse Oximetry 95 95 Oxygen Delivery Method Nasal Cannula Oxygen Flow Rate 2 Narrative Exam Narrative: GENERAL: Alert, pleasant with a slight cough HEENT: Pupils equal CHEST: Diffuse bilateral inspiratory and expiratory wheeze CARDIAC: Tachycardic with irregularly irregular rhythm ABDOMEN: Nondistended, soft, nontender EXTREMITIES: no edema. NEUROLOGICAL: Appears well oriented, no focal weakness SKIN: Some superficial bruising noted on lower extremities Objective Labs Result Diagrams: 05/04/18 04:44 05/04/18 04:44 Labs: Laboratory Results - last 24 hr 05/03/18 05/04/18 05/04/18 05:00 04:44 04:44 WBC 0.6 L* D RBC 3.07 L Hgb 9.1 L Hct 26.1 L MCV 84.9 MCH 29.7 MCHC 35.0 RDW 13.8 Plt Count 45 L Neut % (Auto) Not Reportable Lymph % (Auto) Not Reportable [place] % (Auto) Not Reportable Eos % (Auto) Not Reportable Baso % (Auto) Not Reportable Lymph # (Auto) Not Reportable [place] # (Auto) Not Reportable Baso # (Auto) Not Reportable Total Counted 50 Seg Neutrophils % 8.0 L D Band Neutrophils % 18.0 H Lymphocytes % (Manual) 44.0 Monocytes % (Manual) 18.0 H Eosinophils % (Manual) 8.0 H Basophils % (Manual) 4.0 H Neutrophils # (Manual) 156 L Plt Morphology Comment RBC Morphology Normal morphology Sodium Potassium Chloride Carbon Dioxide BUN Creatinine Estimated GFR BUN/Creatinine Ratio Glucose Calcium Total Bilirubin AST ALT Alkaline Phosphatase Total Protein Albumin Globulin Albumin/Globulin Ratio Procalcitonin 1.30 H 1.36 H 05/04/18 04:44 WBC RBC Hgb Hct MCV MCH MCHC RDW Plt Count Neut % (Auto) Lymph % (Auto) [place] % (Auto) Eos % (Auto) Baso % (Auto) Lymph # (Auto) [place] # (Auto) Baso # (Auto) Total Counted Seg Neutrophils % Band Neutrophils % Lymphocytes % (Manual) Monocytes % (Manual) Eosinophils % (Manual) Basophils % (Manual) Neutrophils # (Manual) Plt Morphology Comment RBC Morphology Sodium 134 L Potassium 3.3 L Chloride 104 Carbon Dioxide 21 L BUN 28 H Creatinine 1.70 H Estimated GFR 29.1 L BUN/Creatinine Ratio 16.5 Glucose 125 H Calcium 7.6 L Total Bilirubin 0.8 AST 18 ALT 23 Alkaline Phosphatase 77 Total Protein 5.5 L Albumin 2.7 L Globulin 2.8 Albumin/Globulin Ratio 1.0 Procalcitonin Assessment & Plan Plan: Assessment/Plan Narrative: Tona Alves is a 77-year-old female with a past medical history significant for meningioma status post resection, biopsy proven amyloidosis and secondary CKD stage III, status post chemotherapy with melphalan x 12 cycles and dexamethasone, 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 Stanton at the [facility] for shortness of breath, cough, fever, and diarrhea. 1. Acute hypoxemic respiratory failure, present on admission. Active. -respiratory failure is due to pneumonia. Still with significant cough and a lot of wheezing on exam -O2 sats improving. Currently on 2 L nasal cannula. -Solu-Medrol 40 mg q.12 hours for bronchospasm -Continue supplemental oxygen as needed to keep oxygen saturations >92%. Titrate off as tolerated. -continue levalbuterol every 6 hr as needed for wheezing and shortness of breath. -continue respiratory therapy evaluation and treatment. 2. Acute viral and superimposed bacterial community-acquired bilateral pneumonia, present on admission. Active. -condition stable but requiring ongoing IV antibiotic -Respiratory viral PCR which was positive for human metapneumovirus. Strep pneumonia and Legionella urine antigens, pending. Sputum culture grew mixed normal amrita. Blood culture x 2 has no growth to date. -Continue supplemental oxygen as above, Tessalon Perles 100 mg t.i.d. as needed for cough and guaifenesin 1200 mg twice daily for excessive sputum production. -Acapella to help clear sputum. -droplet precautions. -Lactic acid normal at 0.08. -Procalcitonin elevated at 0.84 and repeat 1.30 and today 1.36. Continue to trend daily. Per Dr. Trujillo of Infectious Disease, procalcitonin should decrease by approximately 50% if infectious process treated adequately. -CT chest without contrast demonstrated bilateral pneumonia more pronounced within the right upper lobe and left lower lobe. -continue cefepime 2 g every 24 hr due to creatinine clearance and Flagyl 500 mg every 6 hr, for broad-spectrum coverage including anaerobes. Discussed patient with Dr. Trujillo who agrees with treatment plan. 3. Acute watery diarrhea on chronic antibiotics, present on admission. Resolved. -GI panel negative for infectious diarrhea. -Symptom management. 4. 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 Active. -Patient received 1 unit of PRBC at oncologist's office and 2nd unit of PRBC in house. PRBCs have to be special ordered and irradiated. Patient states she does not routinely get Lasix with transfusions. -Continue to monitor CBC daily with blood draws in Pediatric 2. 5. 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 Active. -Patient is on azacitidine and darbepoetin injection every 2 weeks. Her oncologist is Dr. Emily Thompson at [facility] and Dr. Naeem Stanton at [facility]. -Patient is transfusion dependent and usually receives 2 units irradiated PRBC per week. -Continue prophylactic fluconazole 200 mg daily and acyclovir 800 mg daily. Holding levofloxacin 500 mg daily. 6. Amyloidosis with secondary chronic kidney disease stage 3, chronic, present on admission. Presumed stable. -Status post melphalan x 12 cycles and dexamethasone. Appears to be stable. -Baseline creatinine 1.6. Initial creatinine on admission 1.6. Patient is followed by Nephrology outpatient. -Avoid nephrotoxic agents. -Monitor creatinine daily. 7. Hyperbilirubinemia, acuity unknown, present on admission. Resolving. -Secondary to biliary stasis from acute illness. -Patient has a history of recent cholecystectomy. 8. History of paroxysmal atrial fibrillation. Active. History of 1 prior episode after surgery. -patient is in an out of atrial fibrillation with mild tachycardia -Continue to monitor closely on telemetry. -Continue metoprolol succinate 150 mg twice daily per home routine. 9. Hyperlipidemia, chronic, present on admission. Stable. -Continue atorvastatin 40 mg daily at bedtime. 10. History of epistasis. -Use humidified supplemental oxygen as needed. 11. Mild hypokalemia secondary to Lasix after transfusion. -KCL 20 mEq p.o. x1 on May 04, 2018 Code status: Patient is full code but would only want 5 rounds of CPR. Disposition: The patient is likely to discharge home to [facility] upon improvement in oxygenation and treatment and resolution of bilateral pneumonia. Quality VTE Deep Vein Thrombosis/Pulmonary Embolism Present on Admission: No
[2018-05-04] MEDS: POTASSIUM CHLORIDE 20 MEQ TAB PO (09:36)
--- NOTE | 2018-05-04 10:25 | PT.IPTN ---
Current Diagnoses Pneumonia, unspecified organism (05/02/18) Physical Therapy Treatment Note M2 PT-IP Current Condition Start: 05/03/18 11:03 Freq: NEEDED Status: Active Protocol: Document 05/03/18 10:20 HH (Rec: 05/03/18 11:27 [id number]) Physical Therapy Current Condition Current Condition Evaluation Date 05/03/18 Treatment Diagnosis Acute hypoxemic, PNA, difficulty in walking, generalized muscle weakness Onset Date 05/02/18 Weight Bearing Status Weight Bearing Status Weight Bear as Tolerated M3 PT-IP Subjective Start: 05/03/18 11:03 Freq: NEEDED Status: Active Protocol: Document 05/04/18 10:25 RCC (Rec: 05/04/18 10:40 RCC [id number]) Subjective Physical Therapy Visit Type Type Treatment Note Visit Start Time 10:00 Visit Stop Time 10:25 Total Visit Minutes 25 Number of AUTO JOB ESTIMATOR Visits 0 Physical Therapy Visit Comments Patient Comments pt states she is not doing as well this morning compared to yesterday, she was more SOB after ambulating to the BR. Therapy Pain Assessment Pain Present Pain Present Denied Pain M4 PT-IP Mobility and Gait Start: 05/03/18 11:03 Freq: NEEDED Status: Active Protocol: Document 05/04/18 10:25 RCC (Rec: 05/04/18 10:40 RCC [id number]) PT-Bed Mobility Assessment Sit to Supine Sit to Supine Standby Assistance Head of Bed Elevated Bedrails PT-Transfer Assessment Sit to and From Stand Sit to and from Stand Standby Assistance Equipment Transfer Assistive Device None Gait Belt Transfers Transfer Destination Bed Transfer Technique Stand Step Pivot Transfer Ability Level of Assist Standby Assistance Gait Assessment Gait Gait Assistance Required: Standby Assistance Distance (Feet) 60 Able to Maintain Weight Bearing Status Yes During Gait Assistive Devices Assistive Device None Gait Belt Gait Deviations General Gait Pattern Decreased Stride Length Decreased Feet Clearance Step-to Gait Factors Limiting Gait Function Factors Limiting Gait Function Decreased Activity Tolerance Decreased Strength Respiratory Distress Comments Gait Comments O2 saturation on 2-L O2 95-97% during and after ambulation, HR 95-110 bpm with gait. Increased RR after getting back into bed, but no distress . M5 PT-IP Objective Assessments Start: 05/03/18 11:03 Freq: NEEDED Status: Active Protocol: Document 05/03/18 10:20 HH (Rec: 05/03/18 11:27 [id number]) Orientation Orientation/Cognition Level of Alertness Alert Orientation Name Age Birthday Month Date Year Day of Week Place Situation Language Function Ability No Deficits Noted Safety Awareness Understands Safety Issues Memory Description No Deficits Noted Gross Range of Motion Upper Extremity ROM Assessment Within Functional Limits Lower Extremity ROM Assessment Within Functional Limits Strength Upper Extremity Strength Assessment Within Functional Limits Lower Extremity Strength Assessment Within Functional Limits Coordination Assessment Gross Coordination Gross Coordination WNL Sensation Assessment Sensation Gross Sensation WNL Muscle Tone Muscle Tone WNL Yes M6 PT-IP Treatment Start: 05/03/18 11:03 Freq: NEEDED Status: Active Protocol: Document 05/04/18 10:25 RCC (Rec: 05/04/18 10:40 [facility] [id number]) Physical Therapy Treatment Other Treatments Other Treatment Performed SCDs placed; discussed ankle pumps with pt when in chair. M7 PT-IP Assessment and Plan Start: 05/03/18 11:03 Freq: NEEDED Status: Active Protocol: Document 05/04/18 10:25 RCC (Rec: 05/04/18 10:40 [facility] [id number]) PT Summary Assessment and Plan Summary Assessment Summary Pt fatigued after 60 ft of gait, without an assistive device and SBA. Pt with consistent RR until getting back into bed which caused slight increase but no c/o SOB . Pt not able to tolerate stair training this session due to fatigue, daughter states that pt can live on main level of home until she improves, but will still need to manage 12+ steps with B rails. Pt will need to complete stair training prior to d/c with CG training if she is to d/c home. She is a good candidate for therapies to progress her mobility and regain her functional independence. Goals Bed Mobility Goal Independent Transfer Goal Independent Gait Goal Independent Gait Distance 200 Other Goals 12 steps x 3 with B rails Days to Meet Goals 5 Frequency of Treatment Frequency Of Treatment Once a Day Treatment Plan Other Recommendations and Next Treatment monitor HR and O2 with gait, Focus stair training when able Recommendations To Nursing Amount of Assist Needed Standby Assistance 1 Person Assist Discharge Recommendations PT Discharge Recommendations Home with Assistance Home Health
[2018-05-04] MEDS: ACYCLOVIR 400 MG TABLET 800 MG PO (12:13)
[2018-05-04] MEDS: AMLODIPINE 5 MG TABLET PO (12:13)
[2018-05-04] MEDS: ATORVASTATIN 20 MG TABLET 40 MG PO (16:55)
--- NOTE | 2018-05-04 17:42 | PC.NURSE ---
Addendum entered by Joanna Mcneill R.N. 05/04/18 20:36: 1930 - Pt up to the bathroom then to the sink for HS care. Back in bed. RA sats 96%. Although expressing SOB and feeling wheezy. Recovers with rest. IV abx infusing. Call light in reach. Original Note: 1700 -Pt reports improved breathing. Room air 95%. Crackles to bilateral bases. Occasional productive cough with yellow sputum. SBA up to the chair for meal. Denies pain. Supportive famiy at bedside. Call light in reach.
[2018-05-04] MEDS: CEFEPIME 2 GM in SODIUM CHLORIDE 0.9% 100 ML 200 ML IV (21:21)
[2018-05-05] VITALS (13 sets, daily range): BP systolic 131–151; BP diastolic 69–84; PULSE 92–106; RESP 16–26; TEMP 36.2–36.7; O2SAT 95–99
[2018-05-05] MEDS: metroNIDAZOLE 500 MG/100 ML PIGGYBACK 100 MG IV ×4 (01:10→19:16)
[2018-05-05] MEDS: BENZONATATE 100 MG CAPSULE PO (04:13)
[2018-05-05 05:37] LABS: BUN Creatinine Ratio 18.2 (6-22); Blood Urea Nitrogen 31 mg/dL (7-17); Calcium 7.7 mg/dL (8.4-10.2); Carbon Dioxide 19 mmol/L (22-32); Chloride 105 mmol/L (98-107); Estimated Glomerular Filt Rate 29.1 mL/min (>60); Glucose 157 mg/dL (80-110); HEMOLYSIS < 15 (0-50); Potassium 3.8 mmol/L (3.4-5.1); Sodium 133 mmol/L (137-145)
[2018-05-05 05:48] LABS: Hematocrit 26.7 % (36-46); Hemoglobin 9.3 g/dL (12.0-16.0); Mean Corpuscular HGB Conc 34.9 % (30-36); Mean Corpuscular Hemoglobin 29.6 PG (26-34); Mean Corpuscular Volume 84.9 fL (80-100); Platelet Count 63 X10^3/uL (150-400); Red Blood Cell Count 3.15 X10^6/uL (4.0-5.2); Red Cell Distribution Width 14.2 % (11.6-14.8)
[2018-05-05 05:51] LABS: Add Manual Diff / Slide Review YES; White Blood Cell Count 0.6 X10^3/uL (4.5-11.0)
[2018-05-05 06:46] LABS: Procalcitonin 1.05 ng/mL (<0.5)
[2018-05-05 07:03] LABS: Neutrophils Absolute Manual 252 /uL (3000-5900); Total Cells Counted 50
[2018-05-05 07:05] LABS: Anisocytosis 1+
[2018-05-05] MEDS: LEVALBUTEROL 1.25 MG/0.5 ML NEB INH ×3 (07:49→19:50)
[2018-05-05] MEDS: FLUCONAZOLE 100 MG TABLET 200 MG PO (08:12)
[2018-05-05] MEDS: guaiFENesin ER 600 MG TAB 1200 MG PO ×2 (08:13→20:52)
[2018-05-05] MEDS: METOPROLOL ER 50 MG TABLET 150 MG PO ×2 (08:13→17:18)
[2018-05-05] MEDS: SODIUM CHLORIDE 0.9% FLUSH 10 ML IV ×2 (08:13→19:16)
--- NOTE | 2018-05-05 10:14 | PM.PN.1 ---
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 Stanton at the [facility] for shortness of breath, cough, fever, and diarrhea. Her shortness of breath and oxygen saturations have substantially improved since she was started her on Solu-Medrol on 05/04/2018. This morning she has a slight cough with increased phlegm production and a little wheezing. Overall doing significantly better. Her oncologist Dr. Stanton saw patient yesterday, concerned about possible fungal pneumonia, and suggested noncontrast CT on Sunday if she was not responding to treatments (which she is). She has also been in atrial fibrillation rhythm with mild tachycardia since admission. Exam Vital Signs (past 8 hours): - 05/05/18 05:00 05/05/18 06:35 05/05/18 07:38 Temperature 97.8 F 97.2 F L Pulse Rate 92 H 96 H Respiratory Rate 23 25 H Blood Pressure 133/75 137/69 Pulse Oximetry 96 96 98 05/05/18 07:53 05/05/18 09:51 Temperature Pulse Rate 102 H Respiratory Rate 18 Blood Pressure Pulse Oximetry 96 98 Oxygen Delivery Method Room Air Oxygen Flow Rate 0 Narrative Exam Narrative: GENERAL: Alert, pleasant with a slight cough HEENT: Pupils equal CHEST: Diffuse relatively mild bilateral inspiratory and expiratory wheeze CARDIAC: Tachycardic with irregularly irregular rhythm ABDOMEN: Nondistended, soft, nontender EXTREMITIES: no edema. NEUROLOGICAL: Appears well oriented, no focal weakness SKIN: Some superficial bruising noted on upper and lower extremities Objective Labs Result Diagrams: 05/05/18 04:51 05/05/18 04:51 Labs: Laboratory Results - last 24 hr 05/05/18 05/05/18 05/05/18 04:51 04:51 04:51 WBC 0.6 L* RBC 3.15 L Hgb 9.3 L Hct 26.7 L MCV 84.9 MCH 29.6 MCHC 34.9 RDW 14.2 Plt Count 63 L Neut % (Auto) Not Reportable Lymph % (Auto) Not Reportable [place] % (Auto) Not Reportable Eos % (Auto) Not Reportable Baso % (Auto) Not Reportable Lymph # (Auto) Not Reportable [place] # (Auto) Not Reportable Baso # (Auto) Not Reportable Total Counted 50 Seg Neutrophils % 8.0 L Band Neutrophils % 34.0 H Lymphocytes % (Manual) 24.0 L Monocytes % (Manual) 18.0 H Basophils % (Manual) 16.0 H Neutrophils # (Manual) 252 L Plt Morphology Comment RBC Morphology Not Reportable Anisocytosis 1+ H Sodium 133 L Potassium 3.8 Chloride 105 Carbon Dioxide 19 L BUN 31 H Creatinine 1.70 H Estimated GFR 29.1 L BUN/Creatinine Ratio 18.2 Glucose 157 H Calcium 7.7 L Procalcitonin 1.05 H Assessment & Plan Plan: Assessment/Plan Narrative: Tona Alves is a 77-year-old female with a past medical history significant for meningioma status post resection, biopsy proven amyloidosis and secondary CKD stage III, status post chemotherapy with melphalan x 12 cycles and dexamethasone, 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 Stanton at the [facility] for shortness of breath, cough, fever, and diarrhea (resolved). 1. Acute hypoxemic respiratory failure, present on admission. Active. Improving. -respiratory failure is due to pneumonia. -O2 sats improving since on IV steroid. She is off of supplemental O2. -Solu-Medrol 40 mg q.12 hours for bronchospasm -continue levalbuterol every 6 hr as needed for wheezing and shortness of breath. 2. Acute viral and superimposed bacterial community-acquired bilateral pneumonia, present on admission. Active. -condition stable but requiring ongoing IV antibiotic -Respiratory viral PCR which was positive for human metapneumovirus. Strep pneumonia and Legionella urine antigens, pending. Sputum culture grew mixed normal amrita. Blood culture x 2 has no growth to date. -Continue Tessalon Perles 100 mg t.i.d. as needed for cough and guaifenesin 1200 mg twice daily, Acapella to help clear sputum. -Procalcitonin trending down indicating response to therapy. Per Dr. Trujillo of Infectious Disease, procalcitonin should decrease by approximately 50% if infectious process treated adequately. -CT chest without contrast demonstrated bilateral pneumonia more pronounced within the right upper lobe and left lower lobe. -continue cefepime 2 g every 24 hr due to creatinine clearance and Flagyl 500 mg every 6 hr, for broad-spectrum coverage including anaerobes. Discussed patient with Dr. Trujillo who agrees with treatment plan. -consider repeat noncontrast chest CT on Sunday 3. Acute watery diarrhea on chronic antibiotics, present on admission. Resolved. -GI panel negative for infectious diarrhea. 4. 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 Stable. -Patient received 1 unit of PRBC at oncologist's office and 2nd unit of PRBC in house. PRBCs have to be special ordered and irradiated. Patient states she does not routinely get Lasix with transfusions. -Continue to monitor CBC daily with blood draws in Pediatric 2. 5. 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 Active. -Patient is on azacitidine and darbepoetin injection every 2 weeks. Her oncologist is Dr. Emily Thompson at [facility] and Dr. Naeem Stanton at [facility]. -Patient is transfusion dependent and usually receives 2 units irradiated PRBC per week. -Continue prophylactic fluconazole 200 mg daily and acyclovir 800 mg daily. Holding levofloxacin 500 mg daily. 6. Amyloidosis with secondary chronic kidney disease stage 3, chronic, present on admission. Presumed stable. -Status post melphalan x 12 cycles and dexamethasone. Appears to be stable. -Baseline creatinine 1.6. Initial creatinine on admission 1.6. Patient is followed by Nephrology outpatient. -Avoid nephrotoxic agents. 7. Hyperbilirubinemia, acuity unknown, present on admission. Resolving. -Secondary to biliary stasis from acute illness. -Patient has a history of recent cholecystectomy. 8. History of paroxysmal atrial fibrillation. Active. History of 1 prior episode which lasted about 3 weeks after surgery. -patient is only mildly tachycardic and not symptomatic from the atrial fibrillation -Continue to monitor closely on telemetry. -Continue metoprolol succinate 150 mg twice daily per home routine. 9. Hyperlipidemia, chronic, present on admission. Stable. -Continue atorvastatin 40 mg daily at bedtime. 10. History of epistasis. -Use humidified supplemental oxygen as needed. 11. Mild hypokalemia secondary to Lasix after transfusion. Resolved. -KCL 20 mEq p.o. x1 on May 04, 2018 Code status: Patient is full code but would only want 5 rounds of CPR. Disposition: The patient is likely to discharge home to [facility] upon improvement in oxygenation and treatment and resolution of bilateral pneumonia. She probably needs a couple more days in the hospital for IV antibiotic treatment. Quality VTE Deep Vein Thrombosis/Pulmonary Embolism Present on Admission: No
--- NOTE | 2018-05-05 12:15 | PT.IPTN ---
Current Diagnoses Pneumonia, unspecified organism (05/02/18) Physical Therapy Treatment Note M2 PT-IP Current Condition Start: 05/03/18 11:03 Freq: NEEDED Status: Active Protocol: Document 05/03/18 10:20 HH (Rec: 05/03/18 11:27 [email or web address]) Physical Therapy Current Condition Current Condition Evaluation Date 05/03/18 Treatment Diagnosis Acute hypoxemic, PNA, difficulty in walking, generalized muscle weakness Onset Date 05/02/18 Weight Bearing Status Weight Bearing Status Weight Bear as Tolerated M3 PT-IP Subjective Start: 05/03/18 11:03 Freq: NEEDED Status: Active Protocol: Document 05/05/18 12:15 RCC (Rec: 05/05/18 12:32 RCC [email or web address]) Subjective Physical Therapy Visit Type Type Treatment Note Visit Start Time 12:00 Visit Stop Time 12:15 Total Visit Minutes 15 Number of [employer] Visits 0 Physical Therapy Visit Comments Patient Comments Pt feeling a little bit better since yesterday. M4 PT-IP Mobility and Gait Start: 05/03/18 11:03 Freq: NEEDED Status: Active Protocol: Document 05/05/18 12:15 RCC (Rec: 05/05/18 12:32 RCC [email or web address]) PT-Transfer Assessment Sit to and From Stand Sit to and from Stand Standby Assistance Equipment Transfer Assistive Device None Gait Belt Transfers Transfer Destination Chair Transfer Technique Stand Step Pivot Transfer Ability Level of Assist Standby Assistance Gait Assessment Gait Gait Assistance Required: Standby Assistance Distance (Feet) 70 Assistive Devices Assistive Device None Gait Belt Gait Deviations General Gait Pattern Decreased Stride Length Decreased Feet Clearance Step-to Gait Factors Limiting Gait Function Factors Limiting Gait Function Decreased Activity Tolerance Decreased Strength Respiratory Distress Comments Gait Comments O2 saturation on RA 93-97%, HR 97-110 bpm during gait. M5 PT-IP Objective Assessments Start: 05/03/18 11:03 Freq: NEEDED Status: Active Protocol: Document 05/03/18 10:20 HH (Rec: 05/03/18 11:27 [email or web address]) Orientation Orientation/Cognition Level of Alertness Alert Orientation Name Age Birthday Month Date Year Day of Week Place Situation Language Function Ability No Deficits Noted Safety Awareness Understands Safety Issues Memory Description No Deficits Noted Gross Range of Motion Upper Extremity ROM Assessment Within Functional Limits Lower Extremity ROM Assessment Within Functional Limits Strength Upper Extremity Strength Assessment Within Functional Limits Lower Extremity Strength Assessment Within Functional Limits Coordination Assessment Gross Coordination Gross Coordination WNL Sensation Assessment Sensation Gross Sensation WNL Muscle Tone Muscle Tone WNL Yes M6 PT-IP Treatment Start: 05/03/18 11:03 Freq: NEEDED Status: Active Protocol: Document 05/05/18 12:15 RCC (Rec: 05/05/18 12:32 RCC [email or web address]) Physical Therapy Treatment Other Treatments Other Treatment Performed seated marching x10 M7 PT-IP Assessment and Plan Start: 05/03/18 11:03 Freq: NEEDED Status: Active Protocol: Document 05/05/18 12:15 RCC (Rec: 05/05/18 12:32 RCC [email or web address]) PT Summary Assessment and Plan Summary Assessment Summary Pt on RA this session, able to maintain O2 saturation 93% or greater during ambulation x70 ft. No loss of balance noted, however pt does require prolonged amount of time to ambulate. She was too fatigued to attempt step up/down training this session, but is making progress with mobility. Goals Bed Mobility Goal Independent Transfer Goal Independent Gait Goal Independent Gait Distance 200 Other Goals 12 steps x 3 with B rails Days to Meet Goals 5 Frequency of Treatment Frequency Of Treatment Once a Day Treatment Plan Other Recommendations and Next Treatment monitor HR and O2 with gait Focus using no AD, step up/down training when able (12 SE B rails) Recommendations To Nursing Amount of Assist Needed Standby Assistance 1 Person Assist Discharge Recommendations PT Discharge Recommendations Home with Assistance Home Health
[2018-05-05] MEDS: AMLODIPINE 5 MG TABLET PO (12:22)
[2018-05-05] MEDS: ACYCLOVIR 400 MG TABLET 800 MG PO (12:22)
--- NOTE | 2018-05-05 14:31 | PC.NURSE ---
Pt reports feeling improved today in terms of her breathing and energy levels. Wheezing has been improved by RT treatments. Eating and drinking well. Seen by MD and no changes made to treatment for today.
[2018-05-05] MEDS: ATORVASTATIN 20 MG TABLET 40 MG PO (17:18)
[2018-05-05] MEDS: CEFEPIME 2 GM in SODIUM CHLORIDE 0.9% 100 ML 200 ML IV (20:41)
[2018-05-06] VITALS (12 sets, daily range): BP systolic 127–158; BP diastolic 71–88; PULSE 89–109; RESP 15–24; TEMP 35.8–36.4; O2SAT 96–99
--- NOTE | 2018-05-06 | DI.CT.S_ITS ---
PROCEDURE: CT CHEST WO CON INDICATIONS: fungal infection in lungs TECHNIQUE: Noncontrast 5 mm thick sections acquired from the pulmonary apices to the posterior costophrenic angles. 7 mm thick coronal and sagittal MIP reformats were then acquired. For radiation dose reduction, the following was used: automated exposure control, adjustment of mA and/or kV according to patient size. COMPARISON: [facility], CR, CHEST 2 VIEW, 05/17/2016, 12:31. [facility], CT, CT CHEST WO CON, 05/02/2018, 11:56. FINDINGS: Image quality: Excellent. Lungs and pleura: The pattern of patchy bilateral pneumonia, right greater than left, best seen in the right upper lobe just above the minor fissure and also present at the left lung base to a slightly lesser degree has mildly improved with reference to the study from 05/02/18. No cavitary lesion has developed. No pleural effusions or pneumothorax. Central and peripheral airways are patent and normal in caliber. Mediastinum: Heart size is normal. No significant pericardial effusion. No mediastinal adenopathy by size criteria. Thoracic aorta and central pulmonary arteries are normal in size. Esophagus is normal in caliber. No hiatal hernia. Bones and chest wall: No suspicious bony lesions. No vertebral body compression fractures. No axillary or supraclavicular adenopathy by size criteria. Thyroid gland appears normal where well visualized. Abdomen: Visualized upper abdominal solid organs and bowel loops appear normal in the absence of contrast. IMPRESSION: Mild interval improvement in the patchy bilateral pneumonia pattern greater on the right than the left, without development of cavitary pneumonia or evidence of underlying neoplasm. The pneumonia pattern is atypical, but nonspecific. Dictated by: Rolando Chiu M.D. on 05/06/2018 at 13:58 Approved by: Rolando Chiu M.D. on 05/06/2018 at 14:21
[2018-05-06] MEDS: ACETAMINOPHEN 325 MG TABLET 650 MG PO (00:11)
[2018-05-06] MEDS: SODIUM CHLORIDE 0.9% 250 ML 21 ML IV (00:18)
[2018-05-06] MEDS: SODIUM CHLORIDE 0.9% FLUSH 10 ML IV ×4 (00:18→23:59)
[2018-05-06] MEDS: metroNIDAZOLE 500 MG/100 ML PIGGYBACK 100 MG IV ×5 (00:29→23:58)
[2018-05-06 05:24] LABS: Hematocrit 26.8 % (36-46); Hemoglobin 9.2 g/dL (12.0-16.0); Mean Corpuscular HGB Conc 34.3 % (30-36); Mean Corpuscular Hemoglobin 29.3 PG (26-34); Mean Corpuscular Volume 85.5 fL (80-100); Platelet Count 101 X10^3/uL (150-400); Red Blood Cell Count 3.14 X10^6/uL (4.0-5.2); Red Cell Distribution Width 14.3 % (11.6-14.8)
[2018-05-06 05:28] LABS: Add Manual Diff / Slide Review YES; White Blood Cell Count 0.9 X10^3/uL (4.5-11.0)
[2018-05-06 05:31] LABS: BUN Creatinine Ratio 22.9 (6-22); Blood Urea Nitrogen 39 mg/dL (7-17); Calcium 7.6 mg/dL (8.4-10.2); Carbon Dioxide 19 mmol/L (22-32); Chloride 106 mmol/L (98-107); Estimated Glomerular Filt Rate 29.1 mL/min (>60); Glucose 153 mg/dL (80-110); HEMOLYSIS < 15 (0-50); Potassium 3.8 mmol/L (3.4-5.1); Sodium 134 mmol/L (137-145)
[2018-05-06] MEDS: LEVALBUTEROL 1.25 MG/0.5 ML NEB INH ×3 (05:50→19:12)
--- NOTE | 2018-05-06 07:00 | PC.NURSE ---
NOC shift: Pt remains in reverse/droplet isolation. Labs this AM looking better. Pt remains AAOx3 however, tonight pt was having episodes of forgetfulness, anxiety most likely from fatigue and lack of sleep. Pt tends to be very active, multitasking even with staff assisting her. Discussed the importance of sleep to the healing process, and pt agrees and will attempt to nap during the day as well. VSS, Afib RVR/CVR on tele. Pt now has outdated PIV that does work well, may need to consider PICC placement for continued ABX tx IV.
[2018-05-06 07:04] LABS: Neutrophils Absolute Manual 180 /uL (3000-5900); Total Cells Counted 50
[2018-05-06 07:07] LABS: Burr Cells 1+
[2018-05-06] MEDS: FLUCONAZOLE 100 MG TABLET 200 MG PO (08:41)
[2018-05-06] MEDS: METOPROLOL ER 50 MG TABLET 150 MG PO ×2 (08:42→17:10)
--- NOTE | 2018-05-06 10:39 | P.PN_ITS ---
Subjective Date Patient Seen: 05/06/18 Interval history: Chart reviewed patient seen and examined. The patient is a 77 -year-old female with a history of myelodysplastic syndrome following chemotherapy treatment for amyloidosis. She has chronic renal insufficiency secondary to amyloid. Patient has chronic neutropenia. She has been diagnosed with viral/bacterial pneumonia. She has made steady improvement. Patient was able to get up into the shower today. She was somewhat winded following her shower. She has been off oxygen for the past 2 days. She continues to have a cough. Cough is occasionally productive. She has had less epistaxis today. Exam Vital Signs (past 8 hours): - 05/06/18 04:47 05/06/18 05:50 05/06/18 08:00 Temperature 96.8 F L 96.4 F L Pulse Rate 106 H 103 H Respiratory Rate 20 19 Blood Pressure 137/85 136/71 Pulse Oximetry 96 98 97 05/06/18 08:42 Temperature Pulse Rate 103 H Respiratory Rate Blood Pressure 136/71 Pulse Oximetry Oxygen Delivery Method Room Air Oxygen Flow Rate 0 Narrative Exam Narrative: Pleasant female in no acute distress Lungs: Decreased breath sounds with end-expiratory wheezing at the bases Cardiac exam: Irregularly regular normal S1-S2 with a 2/6 systolic ejection murmur Abdomen: Soft nontender nondistended Extremities: No edema Objective Labs Result Diagrams: 05/06/18 04:51 05/06/18 04:51 Labs: Laboratory Results - last 24 hr 05/06/18 05/06/18 04:51 04:51 WBC 0.9 L* RBC 3.14 L Hgb 9.2 L Hct 26.8 L MCV 85.5 MCH 29.3 MCHC 34.3 RDW 14.3 Plt Count 101 L Neut % (Auto) Not Reportable Lymph % (Auto) Not Reportable [place] % (Auto) Not Reportable Eos % (Auto) Not Reportable Baso % (Auto) Not Reportable Lymph # (Auto) Not Reportable [place] # (Auto) Not Reportable Baso # (Auto) Not Reportable Total Counted 50 Seg Neutrophils % 18.0 L D Band Neutrophils % 2.0 L Lymphocytes % (Manual) 40.0 Atypical Lymphs % 8.0 H Monocytes % (Manual) 30.0 H Eosinophils % (Manual) 2.0 Neutrophils # (Manual) 180 L RBC Morphology See below [place] Cells 1+ H Sodium 134 L Potassium 3.8 Chloride 106 Carbon Dioxide 19 L BUN 39 H Creatinine 1.70 H Estimated GFR 29.1 L BUN/Creatinine Ratio 22.9 H Glucose 153 H Calcium 7.6 L Assessment & Plan (1) Pneumonia: Problem details: The patient is immunocompromised secondary to her pancytopenia. She is growing metapneumovirus. Bacterial cultures are negative thus far. Patient has been chronically pancytopenic. She is chronically on antifungal and antibiotics. Discussed the case with her prior primary oncologist Dr. Stanton who recommended CT scan of the chest to rule out the possibility of fungal infection. Overall the patient is making significant improvement. CT scan of the chest will be obtained today. Current visit: Yes Status: Acute (2) Acute respiratory failure: Problem details: Patient's hypoxia has resolved. She is now on room air. Current visit: Yes Status: Acute (3) Therapy-related myelodysplastic syndrome: Problem details: 1. 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 At the time of diagnosis, she presented with anemia and leukopenia. Thought to be therapy related. Patient receives erythropoietin as an outpatient. A G-CSF not indicated as she is likely to be poorly responsive 2. Azacitidine 75 m/m2 daily on days 1-10 q4w. C1D1 was 02/05/2017. 3. Darbepoetin injection 300 mcg q2w for HGB < 12. Current visit: No Status: Acute (4) AL amyloidosis: Problem details: Diagnosed in 2010, status post 12 cycles of chemotherapy with the melphalan and dexamethasone. Present on admission, chronic Current visit: No Status: Acute (5) CKD (chronic kidney disease) stage 3, GFR 30-59 ml/min: Problem details: Due to AL amyloidosis., chronic Current visit: No Status: Acute (6) Pancytopenia: Problem details: Secondary to myelodysplastic 7 Current visit: Yes Status: Acute (7) Paroxysmal atrial fibrillation: Problem details: Present on admission, chronic patient is rate controlled at this time. Current visit: Yes Status: Acute (8) Hyponatremia: Problem details: Will continue to follow. Will monitor closely Current visit: Yes Status: Acute (9) Hyperlipidemia: Problem details: Chronic, continue current therapy Current visit: Yes Status: Acute (10) Epistaxis: Current visit: Yes Status: Acute (11) Hyperbilirubinemia: Problem details: Chronic Current visit: Yes Status: Acute Quality VTE Deep Vein Thrombosis/Pulmonary Embolism Present on Admission: No
[2018-05-06] MEDS: ACYCLOVIR 400 MG TABLET 800 MG PO (12:02)
[2018-05-06] MEDS: AMLODIPINE 5 MG TABLET PO (12:02)
[2018-05-06] MEDS: ATORVASTATIN 20 MG TABLET 40 MG PO (17:10)
[2018-05-06] MEDS: CEFEPIME 2 GM in SODIUM CHLORIDE 0.9% 100 ML 200 ML IV (20:07)
[2018-05-07 00:05] VITALS: O2SAT 97
[2018-05-07 00:09] VITALS: BP 138/83; PULSE 100; RESP 18; TEMP 36.4; O2SAT 97
[2018-05-07 05:29] VITALS: O2SAT 97
[2018-05-07] MEDS: LEVALBUTEROL 1.25 MG/0.5 ML NEB INH (05:29)
[2018-05-07 05:35] VITALS: BP 139/71; PULSE 100; RESP 18; TEMP 36.4; O2SAT 98
[2018-05-07 05:36] LABS: Hematocrit 27.1 % (36-46); Hemoglobin 9.2 g/dL (12.0-16.0); Mean Corpuscular Hemoglobin 29.2 PG (26-34); Platelet Count 131 X10^3/uL (150-400); Red Blood Cell Count 3.15 X10^6/uL (4.0-5.2); Red Cell Distribution Width 14.7 % (11.6-14.8)
[2018-05-07 05:40] LABS: BUN Creatinine Ratio 26.5 (6-22); Blood Urea Nitrogen 45 mg/dL (7-17); Calcium 7.6 mg/dL (8.4-10.2); Carbon Dioxide 18 mmol/L (22-32); Chloride 104 mmol/L (98-107); Estimated Glomerular Filt Rate 29.1 mL/min (>60); Glucose 163 mg/dL (80-110); HEMOLYSIS < 15 (0-50); Potassium 3.9 mmol/L (3.4-5.1); Sodium 132 mmol/L (137-145)
[2018-05-07 06:02] LABS: Add Manual Diff / Slide Review YES; White Blood Cell Count 0.9 X10^3/uL (4.5-11.0)
[2018-05-07] MEDS: metroNIDAZOLE 500 MG/100 ML PIGGYBACK 100 MG IV (06:19)
[2018-05-07] MEDS: SODIUM CHLORIDE 0.9% FLUSH 10 ML IV ×2 (06:19→08:00)
[2018-05-07 07:00] LABS: Band Neutrophils Percent 3.1 % (3-7); Eosinophils Percent Manual 4.7 % (2-4); Lymphocytes Percent Manual 39.1 % (25-45); Monocytes Percent Manual 32.8 % (2-11); Neutrophils Absolute Manual 211 /uL (3000-5900); Segmented Neutrophils Percent 20.3 % (38-70); Total Cells Counted 64
[2018-05-07 07:01] LABS: Burr Cells 1+
[2018-05-07 07:37] VITALS: BP 137/67; PULSE 93; RESP 18; TEMP 36.6; O2SAT 97
[2018-05-07 08:00] VITALS: O2SAT 99
[2018-05-07] MEDS: METOPROLOL ER 50 MG TABLET 150 MG PO (08:00)
[2018-05-07] MEDS: FLUCONAZOLE 100 MG TABLET 200 MG PO (08:00)
--- NOTE | 2018-05-07 08:43 | PM.DS.1 ---
History of Present Illness Date Patient Seen: 05/07/18 Chief complaint: NEUTROPENIC Narrative: Tona Alves is a 77-year-old female with a past medical history significant for meningioma status post resection, biopsy proven amyloidosis and secondary CKD stage III, status post chemotherapy with melphalan x 12 cycles and dexamethasone, therapy related MDS on azacitidine and darbepoetin injection every 2 weeks which is transfusion dependent and usually receives 2 units PRBC every week who was a direct transfer from Dr. Stanton at the [facility] for shortness of breath, cough, fever, and diarrhea. The patient reports that [place] and developed a cough later that evening. She had accompanying fever at at 100.4? F and diarrhea (4-5 watery stools per day). Today she started developing difficulty breathing. She has had mild blood-tinged sputum as well. She has chronic rhinitis that has not worsened. She denies headache, vision changes, sore throat, chest pain, abdominal pain, nausea, vomiting, dysuria, or constipation. She does endorse fatigue and does not usually feel symptomatic of her anemia including fatigue, lethargy, and shortness of breath. Her appetite and fluid intake have been poor. Her oncologist is Dr. Emily Thompson at [facility] and Dr. Naeem Stanton at [facility]. PCP is Dr. Melendez on [facility]. Discharge Providers Date of admission: 05/02/18 16:39 Primary care physician: Omar Melendez Consults: 05/02/18 17:24 Consult to Physical Therapy Evaluate & Treat Comment: PNA Physician Instructions: Evaluate and Treat 05/02/18 17:25 Consult to Respiratory Therapy Evaluate & Treat Comment: B/l PNA, neutropenic Physician Instructions: Evaluate and treat Discharge provider: Lis Ferguson MD Discharge Date: 05/07/18 Summary Discharge Diagnosis: Acute hypoxic respiratory failure, present on admission, resolved Acute viral pneumonia with superimposed bacterial pneumonia, present on admission, resolving Watery diarrhea, present on admission, resolved Pancytopenia, present on admission, persistent Amyloidosis, present on admission Chronic kidney disease, stage III, present on admission Paroxysmal atrial fibrillation, chronic, Hyponatremia Hyperglycemia secondary to steroid Myelodysplastic syndrome, chronic, currently undergoing treatment for same Hyperlipidemia, chronic Hyperbilirubinemia Hospital Course: Patient was admitted to the hospital for neutropenia in immunocompromised host. She was started empirically on antibiotics to include cefepime and Flagyl. The patient had watery diarrhea on admission however her C diff was negative. In addition the patient had serology which was positive for Human metapneumovirus. Patient has bacterial cultures remained negative. The patient's hypoxia resolved. The patient has significant bronchospasm during her stay. She was treated with IV steroids which will be discontinued at discharge. She was able to ambulate with an oxygen saturation of 99%. The patient did develop her current paroxysmal atrial fibrillation. Her rate was controlled with the metoprolol. The patient's pancytopenia persisted. She did require a 2 unit transfusion as she is transfusion dependent. She had an episode of epistaxis which resolved. The patient had a repeat CT scan of the chest. This confirmed improving bilateral patchy pneumonia right greater than left. The patient clinically improved and was deemed appropriate for discharge home. Patient's care was discussed with Dr. Stanton. She will follow up with her oncologist as an outpatient within 1 week. Exam Vital Signs (past 8 hours): - 05/07/18 05:29 05/07/18 05:35 05/07/18 07:37 Temperature 97.5 F L 98 F Pulse Rate 100 H 93 H Respiratory Rate 18 18 Blood Pressure 139/71 137/67 Pulse Oximetry 97 98 97 05/07/18 08:00 Temperature Pulse Rate Respiratory Rate Blood Pressure Pulse Oximetry 99 Oxygen Delivery Method Room Air Oxygen Flow Rate 0 Narrative Exam Narrative: Pleasant female in no acute distress Lungs: Decreased breath sounds with coarse rhonchi at the bases bilaterally no wheezing or crackles noted Cardiac exam: Irregularly irregular, normal S1-S2, 2/6 systolic ejection murmur Abdomen: Soft nontender nondistended Extremities: No edema Objective Labs Result Diagrams: 05/07/18 04:45 05/07/18 04:45 Labs: Laboratory Results - last 24 hr 05/07/18 05/07/18 04:45 04:45 WBC 0.9 L* RBC 3.15 L Hgb 9.2 L Hct 27.1 L MCV 86.0 MCH 29.2 MCHC 34.0 RDW 14.7 Plt Count 131 L Neut % (Auto) Not Reportable Lymph % (Auto) Not Reportable [place] % (Auto) Not Reportable Eos % (Auto) Not Reportable Baso % (Auto) Not Reportable Lymph # (Auto) Not Reportable [place] # (Auto) Not Reportable Baso # (Auto) Not Reportable Total Counted 64 Seg Neutrophils % 20.3 L Band Neutrophils % 3.1 Lymphocytes % (Manual) 39.1 Monocytes % (Manual) 32.8 H Eosinophils % (Manual) 4.7 H Neutrophils # (Manual) 211 L Plt Morphology Comment . RBC Morphology See below [place] Cells 1+ H Sodium 132 L Potassium 3.9 Chloride 104 Carbon Dioxide 18 L BUN 45 H Creatinine 1.70 H Estimated GFR 29.1 L BUN/Creatinine Ratio 26.5 H Glucose 163 H Calcium 7.6 L Discharge Plan Discharge Plan Patient Disposition: Home Discharge comment: F/U with Oncology next week as scheduled Discharge Med Rec/Prescriptions Prescriptions: New levofloxacin 500 mg tablet 500 mg PO DAILY Qty: 7 RF: 0 albuterol sulfate 90 mcg/actuation HFA aerosol inhaler 2 puff INHALATION Q6H PRN (Reason: shortness of breath or wheezing) 7 Days Qty: 6.7 RF: 0 Continue acyclovir 400 MG tablet 800 mg PO DAILY Qty: 0 RF: 0 atorvastatin 40 MG tablet 40 mg PO HS Qty: 90 RF: 3 polyethylene glycol 3350 [Miralax] 17 gram Powder In Packet 17 g PO PRN PRN (Reason: Constipation) RF: 0 cholecalciferol (vitamin D3) [Vitamin D3] 1,000 unit Tablet 5,000 unit PO Q OTHER DAY RF: 0 metoprolol succinate 50 mg Cap,Sprinkle,Er 24hr Dose Pack 150 mg PO BID RF: 0 amlodipine 5 mg Tablet 5 mg PO DAILY RF: 0 fluconazole 200 mg tablet 200 mg PO DAILY Qty: 30 RF: 0 ondansetron HCl [Zofran] 4 mg Tablet 4 mg PO DAILY RF: 0 Discontinued levofloxacin 250 mg Tablet 500 mg PO DAILY Qty: 30 RF: 0 Follow up/Referrals: Omar Melendez [Primary Care Provider] - Provider Discharge Instructions Diet: Low-sodium and Low-cholesterol Activity: as tolerated Oxygen: not indicated Other treatments: Patient will be instructed to use an albuterol inhaler as needed for shortness of breath until pneumonia resolves Skin/Wound/Dressing Care Report to your healthcare provider any signs of infection, such as:: chills, fever and night sweats Discharge Data Primary Care Provider: Omar Melendez Attending Provider: Melvina Adamson Admit Date/Time: 05/02/18 16:39 Quality VTE Deep Vein Thrombosis/Pulmonary Embolism Present on Admission: No
--- NOTE | 2018-05-07 08:51 | P.DS_ITS ---
History of Present Illness Date Patient Seen: 05/07/18 Chief complaint: NEUTROPENIC Narrative: Tona Alves is a 77-year-old female with a past medical history significant for meningioma status post resection, biopsy proven amyloidosis and secondary CKD stage III, status post chemotherapy with melphalan x 12 cycles and dexamethasone, therapy related MDS on azacitidine and darbepoetin injection every 2 weeks which is transfusion dependent and usually receives 2 units PRBC every week who was a direct transfer from Dr. Stanton at the [facility] for shortness of breath, cough, fever, and diarrhea. The patient reports that she went to [employer]ian[place] on Sunday and developed a cough later that evening. She had accompanying fever at at 100.4? F and diarrhea (4-5 watery stools per day). Today she started developing difficulty breathing. She has had mild blood- tinged sputum as well. She has chronic rhinitis that has not worsened. She denies headache, vision changes, sore throat, chest pain, abdominal pain, nausea , vomiting, dysuria, or constipation. She does endorse fatigue and does not usually feel symptomatic of her anemia including fatigue, lethargy, and shortness of breath. Her appetite and fluid intake have been poor. Her oncologist is Dr. Emily Thompson at [facility] and Dr. Naeem Stanton at [facility]. PCP is Dr. Melendez on [facility]. Discharge Providers Date of admission: 05/02/18 16:39 Primary care physician: Omar Melendez Consults: 05/02/18 17:24 Consult to Physical Therapy Evaluate & Treat Comment: PNA Physician Instructions: Evaluate and Treat 05/02/18 17:25 Consult to Respiratory Therapy Evaluate & Treat Comment: B/l PNA, neutropenic Physician Instructions: Evaluate and treat Discharge provider: Lis Ferguson MD Discharge Date: 05/07/18 Summary Discharge Diagnosis: Acute hypoxic respiratory failure, present on admission, resolved Acute viral pneumonia with superimposed bacterial pneumonia, present on admission, resolving Watery diarrhea, present on admission, resolved Pancytopenia, present on admission, persistent Amyloidosis, present on admission Chronic kidney disease, stage III, present on admission Paroxysmal atrial fibrillation, chronic, Hyponatremia Hyperglycemia secondary to steroid Myelodysplastic syndrome, chronic, currently undergoing treatment for same Hyperlipidemia, chronic Hyperbilirubinemia Hospital Course: Patient was admitted to the hospital for neutropenia in immunocompromised host. She was started empirically on antibiotics to include cefepime and Flagyl. The patient had watery diarrhea on admission however her C diff was negative. In addition the patient had serology which was positive for Human metapneumovirus. Patient has bacterial cultures remained negative. The patient's hypoxia resolved. The patient has significant bronchospasm during her stay. She was treated with IV steroids which will be discontinued at discharge. She was able to ambulate with an oxygen saturation of 99%. The patient did develop her current paroxysmal atrial fibrillation. Her rate was controlled with the metoprolol. The patient's pancytopenia persisted. She did require a 2 unit transfusion as she is transfusion dependent. She had an episode of epistaxis which resolved. The patient had a repeat CT scan of the chest. This confirmed improving bilateral patchy pneumonia right greater than left. The patient clinically improved and was deemed appropriate for discharge home. Patient's care was discussed with Dr. Stanton. She will follow up with her oncologist as an outpatient within 1 week. Exam Vital Signs (past 8 hours): - 05/07/18 05:29 05/07/18 05:35 05/07/18 07:37 Temperature 97.5 F L 98 F Pulse Rate 100 H 93 H Respiratory Rate 18 18 Blood Pressure 139/71 137/67 Pulse Oximetry 97 98 97 05/07/18 08:00 Temperature Pulse Rate Respiratory Rate Blood Pressure Pulse Oximetry 99 Oxygen Delivery Method Room Air Oxygen Flow Rate 0 Narrative Exam Narrative: Pleasant female in no acute distress Lungs: Decreased breath sounds with coarse rhonchi at the bases bilaterally no wheezing or crackles noted Cardiac exam: Irregularly irregular, normal S1-S2, 2/6 systolic ejection murmur Abdomen: Soft nontender nondistended Extremities: No edema Objective Labs Result Diagrams: 05/07/18 04:45 05/07/18 04:45 Labs: Laboratory Results - last 24 hr 05/07/18 05/07/18 04:45 04:45 WBC 0.9 L* RBC 3.15 L Hgb 9.2 L Hct 27.1 L MCV 86.0 MCH 29.2 MCHC 34.0 RDW 14.7 Plt Count 131 L Neut % (Auto) Not Reportable Lymph % (Auto) Not Reportable [place] % (Auto) Not Reportable Eos % (Auto) Not Reportable Baso % (Auto) Not Reportable Lymph # (Auto) Not Reportable [place] # (Auto) Not Reportable Baso # (Auto) Not Reportable Total Counted 64 Seg Neutrophils % 20.3 L Band Neutrophils % 3.1 Lymphocytes % (Manual) 39.1 Monocytes % (Manual) 32.8 H Eosinophils % (Manual) 4.7 H Neutrophils # (Manual) 211 L Plt Morphology Comment . RBC Morphology See below [place] Cells 1+ H Sodium 132 L Potassium 3.9 Chloride 104 Carbon Dioxide 18 L BUN 45 H Creatinine 1.70 H Estimated GFR 29.1 L BUN/Creatinine Ratio 26.5 H Glucose 163 H Calcium 7.6 L Discharge Plan Discharge Plan Patient Disposition: Home Discharge comment: F/U with Oncology next week as scheduled Discharge Med Rec/Prescriptions Prescriptions: New levofloxacin 500 mg tablet 500 mg PO DAILY Qty: 7 RF: 0 albuterol sulfate 90 mcg/actuation HFA aerosol inhaler 2 puff INHALATION Q6H PRN (Reason: shortness of breath or wheezing) 7 Days Qty: 6.7 RF: 0 Continue acyclovir 400 MG tablet 800 mg PO DAILY Qty: 0 RF: 0 atorvastatin 40 MG tablet 40 mg PO HS Qty: 90 RF: 3 polyethylene glycol 3350 [Miralax] 17 gram Powder In Packet 17 g PO PRN PRN (Reason: Constipation) RF: 0 cholecalciferol (vitamin D3) [Vitamin D3] 1,000 unit Tablet 5,000 unit PO Q OTHER DAY RF: 0 metoprolol succinate 50 mg Cap,Sprinkle,Er 24hr Dose Pack 150 mg PO BID RF: 0 amlodipine 5 mg Tablet 5 mg PO DAILY RF: 0 fluconazole 200 mg tablet 200 mg PO DAILY Qty: 30 RF: 0 ondansetron HCl [Zofran] 4 mg Tablet 4 mg PO DAILY RF: 0 Discontinued levofloxacin 250 mg Tablet 500 mg PO DAILY Qty: 30 RF: 0 Follow up/Referrals: Omar Melendez [Primary Care Provider] - Provider Discharge Instructions Diet: Low-sodium and Low-cholesterol Activity: as tolerated Oxygen: not indicated Other treatments: Patient will be instructed to use an albuterol inhaler as needed for shortness of breath until pneumonia resolves Skin/Wound/Dressing Care Report to your healthcare provider any signs of infection, such as:: chills, fever and night sweats Discharge Data Primary Care Provider: Omar Melendez Attending Provider: Melvina Adamson Admit Date/Time: 05/02/18 16:39 Quality VTE Deep Vein Thrombosis/Pulmonary Embolism Present on Admission: No
--- NOTE | 2018-05-07 10:39 | CM.DPC ---
DCP/discharge Per Dr. Ferguson patient to discharge home today with a FU with oncology next week. Met with patient and spouse/Kanu: both agreeable to discharge and have no concerns or needs. Plan is to stay a night in a motel in [place] today and will catch ferry tomorrow to [facility]. Spouse will provide transportation. Plan: Patient to discharge home today with supportive spouse via pov.
--- NOTE | 2018-05-07 10:50 | PC.NURSE ---
Pt to d/c home per MD order. Reviewed d/c packet, Rxs, home med routine, doses, times, next dose due, side effects. Pt verbalizes understanding and will go to family pharmacy to obtain medications that were sent electronically. Reviewed pneumonia, instructed when to seek emergency medical treatment. Provided written education. Pt verbalized understanding of d/c teaching and voices no questions at this time. IV was removed by SN as charted. Pt transferred independently from chair to w/c and was escorted to POV by [employer] in no acute distress with all belongings at 1200.
[2018-05-07 13:10] LABS: Anti-Streptolysin O Antibody < 50 IU/mL (< 200)
== END 2018-05-07 12:00 | disposition home or self-care (01) | DRG 193 ==
PROVIDERS: Internal Medicine; Nurse Practitioner Gerontology; Admitting Provider Internal Medicine; Family Provider Internal Medicine Hematology; PCP Family Medicine; Visit Provider Internal Medicine
DX: J12.3 Human metapneumovirus pneumonia (principal); J96.01 Acute respiratory failure with hypoxia; D61.810 Antineoplastic chemotherapy induced pancytopenia; E85.4 Organ-limited amyloidosis; J15.9 Unspecified bacterial pneumonia; N18.3 Chronic kidney disease, stage 3 (moderate); T45.1X5A Adverse effect of antineoplastic and immunosuppressive drugs, initial encounter; R19.7 Diarrhea, unspecified; E80.6 Other disorders of bilirubin metabolism; I48.0 Paroxysmal atrial fibrillation; N08 Glomerular disorders in diseases classified elsewhere; D46.Z Other myelodysplastic syndromes; E78.5 Hyperlipidemia, unspecified; E87.6 Hypokalemia; R73.9 Hyperglycemia, unspecified; T38.0X5A Adverse effect of glucocorticoids and synthetic analogues, initial encounter; D46.9 Myelodysplastic syndrome, unspecified
CPT/HCPCS: 36415; 36430; 71250; 80048; 80053; 81001; 83605; 83735; 84145; 85025; 86060; 86480; 86850; 86900; 86901; 87040; 87070; 87205; 87305; 87400; 87449; 87507; 87633; 87797; 93005; 94640; 94762; 96372; 97116; 97162; 97530; 99215; P9016; J0692; J0881; J1644; J2920; J7614

== ENCOUNTER 2018-05-08 08:38 | Emergency (ER) | payer MEDICARE, OTHER, SELFPAY ==
[2018-05-02 18:24] VITALS: BMI 26.1
[2018-05-08 08:49] VITALS: BP 131/64; PULSE 88; RESP 20; TEMP 36.5; O2SAT 100; BMI 26.6
--- NOTE | 2018-05-08 09:13 | ED_ITS ---
HPI - Extremity Problem General Chief complaint: Extremity Problem,Nontraumatic Stated complaint: BOTH LEGS SWOLLEN. HAS KIDNEY DISEASE Time Seen by Provider: 05/08/18 08:42 Source: patient and family Mode of arrival: ambulatory Limitations: no limitations History of Present Illness HPI Narrative: Patient complains of lower extremity edema bilaterally since yesterday. Patient was just discharged from the CCU yesterday after being admitted for neutropenia and pneumonia. Patient is currently being treated for cancer with chemotherapy, and was sent as a direct admit by Dr. Stanton an oncology. Her bacterial cultures were found to be negative while she was admitted, and she was found to be positive for med in [place] virus. Patient states that overall, she feels much better than when she was 1st admitted to the hospital, and has not had any uptake in her shortness of breath. She still has a residual congested cough, but this is slowly improving. He the patient states that she has a history of amyloidosis, and that she is concerned because this has caused kidney damage. She states she has had no trouble with it for a long time, but that the swelling made her concerned that perhaps her kidneys were under some stress. He she states swelling is equal bilaterally, that she wore SCDs throughout her entire time in the hospital. She states she was getting out bed to the chair, and did a little bit of ambulating in the hospital , but not lot. She states that yesterday, she sat up a bit and did some walking but mostly rested. Patient denies any history of the congestive heart failure. She states that overall she is feeling well but is just concerned about the swelling mainly. She states that she was not even aware that she was swollen, and was not having any discomfort, but noticed the edema when she took her pants off. She states she took 20 mg of Lasix at 9:00 p.m., 2400, and this morning about an hour ago. States she urinated a little last night, and is just starting to urinate now. She states she was not urinating much in the hospital. Related Data Home Medications Medication Instructions Recorded Confirmed cholecalciferol (vitamin D3) 5,000 unit PO Q OTHER DAY 03/11/18 05/08/18 [Vitamin D3] metoprolol succinate 150 mg PO BID 03/11/18 05/08/18 polyethylene glycol 3350 [Miralax] 17 g PO PRN PRN 03/11/18 05/08/18 amlodipine 5 mg PO QNOON 04/05/18 05/08/18 ondansetron HCl [Zofran] 4 mg PO DAILY 05/02/18 05/08/18 acyclovir 800 mg PO QNOON 05/08/18 05/08/18 atorvastatin 40 mg PO BEDTIME 05/08/18 05/08/18 levofloxacin 500 mg PO QPM 05/08/18 05/08/18 Previous Rx's Medication Instructions Recorded fluconazole 200 mg PO DAILY #30 tab 05/02/18 albuterol sulfate 2 puff INHALATION Q6H PRN 7 Days 05/07/18 #6.7 gram Allergies Allergy/AdvReac Type Severity Reaction Status Date / Time amoxicillin Allergy Mild Rash Verified 04/01/18 22:57 Tetanus Vaccines and Toxoid AdvReac Unknown Verified 04/01/18 15:03 [TETANUS VACCINES & TOXOID] Review of Systems Constitutional Denies chills, Denies fever(s), Denies lethargy and Denies weakness Eyes Denies change in vision, Denies eye discharge, Denies irritation and Denies loss of vision ENT Ears, Nose, Mouth, and Throat: Denies change in voice, Denies neck pain and Denies sore throat Cardiovascular Denies chest pain, Denies irregular heart rhythm, Denies lightheadedness, Denies palpitations, Denies dyspnea, Denies dyspnea on exertion and Denies orthopnea Respiratory Denies cough, Denies dyspnea, Denies dyspnea on exertion and Denies wheezing Gastrointestinal Gastrointestinal: Denies abdominal pain, Denies change in bowel habits, Denies diarrhea, Denies nausea and Denies vomiting Genitourinary Denies hematuria, Denies flank pain, Denies urinary incontinence and Denies urinary urgency Musculoskeletal Denies neck pain Comments: Lower extremity edema Integumentary/Breasts Denies pruritus, Denies erythema, Denies rash and Denies wounds Neurologic Denies confusion, Denies loss of vision and Denies weakness Psychiatric Denies anxiety, Denies confusion, Denies depression, Denies homicidal ideation and Denies suicidal ideation Endocrine Denies palpitations Hematologic/Lymphatic Denies easy bruising Allergic/Immunologic Denies wheezing PFSH Medical History Amyloidosis (Acute) CKD (chronic kidney disease) (Acute) Cancer, skin, squamous cell (Acute) HTN (hypertension) (Acute) Hyperlipidemia (Acute) Intermittent atrial fibrillation (Acute) 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) Surgical History History of bone marrow biopsy (Acute) History of brain surgery (Acute) Hx laparoscopic cholecystectomy (Acute) Hx of cholecystectomy (Acute) Family History Father Prostate cancer Mother Heart disease Brother Heart disease Hx of CABG Social History household members: spouse Smoking Status: Never smoker substance use type: does not use Exam Initial Vital Signs Initial Vital Signs: Vital Signs Temperature 97.7 F 05/08/18 08:49 Pulse Rate 88 05/08/18 08:49 Respiratory Rate 20 05/08/18 08:49 Blood Pressure 131/64 05/08/18 08:49 Pulse Oximetry 100 05/08/18 08:49 Const General: cooperative and well developed Nutritional Appearance: well nourished Orientation: alert, awake, oriented x3 and not confused [facility] Head: normocephalic and atraumatic Ears: external ears normal Nose: external nose normal and No nasal discharge Face and sinus: face symmetric and No dry mucous membranes Mouth: oral mucosae normal and moist mucous membranes Teeth and gingiva: dentition normal Eyes General: appearance normal, both eyes and all related structures Eyelids: eyelids normal Conjunctivae: conjunctivae normal Sclera: sclerae normal Pupils: PERRL EOM: EOM intact bilaterally Neck Neck: normal visual inspection, trachea midline, No lymphadenopathy, No midline deformity and No JVD Lymphatic: No lymphedema Chest Chest: normal inspection of the chest Resp Effort & Inspection: normal respiratory effort, able to speak in complete sentences, no respiratory distress and no use of accessory muscles Auscultation: clear to auscultation bilaterally, no rales, no rhonchi and no wheezes Cardio Rate: regular rate Rhythm: regular rhythm Heart Sounds: no click, no gallops, no murmurs and no rubs Pulses: normal peripheral pulses GI Inspection: non-distended Palpation: soft, no hepatosplenomegaly, No guarding, No pulsatile mass and No tender Auscultation: normal bowel sounds Back/Spine/Pelvis Back: No CVA tenderness Cervical Spine: cervical ROM normal and No pain with cervical ROM Thoracic/Lumbar Spine: thoracic and lumbar spine normal to inspection Skin General: no rashes or lesions noted, No jaundice and No petechiae Neuro General: alert, oriented x3, gait normal and no focal motor deficits Speech: speech normal Extrem General: full ROM, no calf tenderness and edema Other: Moderate nonpitting edema of bilateral lower legs up to knees. No erythema. No calf tenderness. Psych Appearance: well kempt Mental Status: mental status grossly normal Attitude: cooperative Thought Content: normal and suicidality Judgment: judgment good Course Course Narrative: Patient was worked up labs and a chest x-ray. Chest x-ray was negative, and creatinine was at baseline. BUN was also near baseline. Patient was found to have a BNP of 1060. Patient was not aware of a prior diagnosis of congestive heart failure, though I suspect with the lack of pulmonary edema, this is an ongoing issue at a low level. I have discussed with the patient that she does not have any pulmonary edema and at this point, I would continue the Lasix. Patient been given the option to take her Lasix at 20 mg 2 to 3 times a day, or to take the entire day's dose at once in the morning. We have good discussed the usual indications for return, as well as the need for follow-up. Patient states she has a follow-up appoint with her oncologist on regarding her admission, and she can discuss getting an echocardiogram and whether to continue the Lasix at that time. Orders Ordered: ED Orders 05/08/18 09:05 B Type Natriuretic Peptide Stat Complete Blood Count AUTO DIFF Stat Comprehensive Metabolic Panel Stat 05/08/18 09:20 XR chest 1V Stat Vital Signs - 8 hr 05/08/18 10:00 05/08/18 10:42 Pulse Rate 81 87 Respiratory Rate 19 20 Blood Pressure 135/63 Blood Pressure [Left Arm] 127/72 Pulse Oximetry 98 98 MDM - Extremity (Nontraumatic) Medical Records Attestation: I reviewed the patient's medical records. Lab Data Attestation: I reviewed the patient's lab results. Result diagrams: 05/08/18 09:05 05/08/18 09:05 Lab Results 05/08/18 05/08/18 Range/Units 09:05 09:05 WBC 1.7 L* D (4.5-11.0) X10^3/uL RBC 3.21 L (4.0-5.2) X10^6/uL Hgb 9.4 L (12.0-16.0) g/dL Hct 27.4 L (36-46) % MCV 85.3 (80-100) fL MCH 29.2 (26-34) PG MCHC 34.3 (30-36) % RDW 14.4 (11.6-14.8) % Plt Count 151 (150-400) X10^3/uL Neut % (Auto) Not Reportable Lymph % (Auto) Not Reportable [place] % (Auto) Not Reportable Eos % (Auto) Not Reportable Baso % (Auto) Not Reportable Lymph # (Auto) Not Reportable [place] # (Auto) Not Reportable Baso # (Auto) Not Reportable Total Counted 100 Seg Neutrophils % 10.0 L D (38-70) % Lymphocytes % (Manual) 48.0 H (25-45) % Atypical Lymphs % 8.0 H ( - 0) % Monocytes % (Manual) 31.0 H (2-11) % Eosinophils % (Manual) 3.0 (2-4) % Neutrophils # (Manual) 170 L (2625-7018) /uL Plt Morphology Comment RBC Morphology Not Reportable Poikilocytosis 1+ H [place] Cells 1+ H Sodium 132 L (137-145) mmol/L Potassium 3.9 (3.4-5.1) mmol/L Chloride 103 (98-107) mmol/L Carbon Dioxide 16 L (22-32) mmol/L BUN 51 H (7-17) mg/dL Creatinine 1.70 H (0.52-1.04) mg/dL Estimated GFR 29.1 L (>60) mL/min BUN/Creatinine Ratio 30.0 H (6-22) Glucose 122 H (80-110) mg/dL Calcium 7.3 L (8.4-10.2) mg/dL Total Bilirubin 0.5 (0.2-1.3) mg/dL AST 26 (14-36) IU/L ALT 22 (9-52) IU/L Alkaline Phosphatase 65 (38-126) U/L B-Natriuretic Peptide 1060 H (<100) Total Protein 5.8 L (6.3-8.2) g/dL Albumin 3.1 L (3.5-5.0) g/dL Globulin 2.7 (1.7-4.1) g/dL Albumin/Globulin Ratio 1.1 (1.0-2.8) Imaging Data Chest x-ray: Attestation: I personally reviewed and interpreted this imaging study as follows: My impression: Findings consistent with slight residual from recent pneumonia. Radiologist's impression: [address] [address] XRay Report Signed Patient: Tona Alves KMR#: [id number] : 1Acct:[id number] Age/Sex: 77 / FDate of Service: 05/08/18 Loc: ED Accession Number: [id number] Procedure: XR chest 1V Ordering Provider: Radha Aldridge MD PROCEDURE: XR CHEST 1V INDICATIONS: edema TECHNIQUE: One view of the chest was acquired. COMPARISON: [facility], CR, CHEST 2 VIEW, 05/17/2016, 12:31. FINDINGS: Surgical changes and devices: None. Lungs and pleura: No pleural effusions or pneumothorax. There is mild patchy bilateral perihilar density. Mediastinum: Mediastinal contours appear normal. Heart size is normal. Bones and chest wall: No suspicious bony lesions. Overlying soft tissues appear unremarkable. IMPRESSION: Mild atypical pneumonia. Dictated by: Lennox Mathews M.D. on 05/08/2018 at 9:43 Approved by: Lennox Mathews M.D. on 05/08/2018 at 9:44 Discharge Plan Departure Patient Disposition: Home Clinical Impression: Peripheral edema, Congestive heart failure Discharge Date/Time: 05/08/18 10:43 Interventions: ED Discharge Assessment Last Done: 05/08/18 10:42 Instructions: DI for Heart Failure, DI for Peripheral Edema -- Bilateral Activity Restrictions/Additional Instructions: Your labs are essentially unchanged from the labs you had yesterday, and on the prior days during your admission. There is no worsening of your kidney function. Your white blood cell count has improved. Urine labs do show that you have some degree of congestive heart failure, which is most likely chronic but and diagnosed. This could be the result of the chemotherapy plus the recent health stresses. There is no evidence that you have fluid backing up into your lungs, as your lungs are clear and your chest x-ray looks good. Your doctor will need to schedule an ultrasound of your heart at some point to see how your heart function is doing in more detail, but this does not need to be done emergently now. At this point in time, you should continue your Lasix at home. You can take 20 mg 2 to 3 times a day, or you may take 40-60 mg once in morning. Once the edema has subsided, you may stop using the Lasix again. Be sure to elevate your legs if you're sitting down, and get up and about as much as you can. This will help to work the edema out of your legs and get the fluid back in your bloodstream where it can be gotten rid of by your kidneys. You may also use compression stockings to help work the fluid out of your legs. Prescriptions: No Action polyethylene glycol 3350 [Miralax] 17 gram Powder In Packet 17 g PO PRN PRN (Reason: Constipation) RF: 0 cholecalciferol (vitamin D3) [Vitamin D3] 1,000 unit Tablet 5,000 unit PO Q OTHER DAY RF: 0 metoprolol succinate 50 mg Cap,[place],Er 24hr Dose Pack 150 mg PO BID RF: 0 amlodipine 5 mg Tablet 5 mg PO QNOON RF: 0 fluconazole 200 mg tablet 200 mg PO DAILY Qty: 30 RF: 0 ondansetron HCl [Zofran] 4 mg Tablet 4 mg PO DAILY RF: 0 albuterol sulfate 90 mcg/actuation HFA aerosol inhaler 2 puff INHALATION Q6H PRN (Reason: shortness of breath or wheezing) 7 Days Qty: 6.7 RF: 0 levofloxacin 250 mg tablet 500 mg PO QPM RF: 0 acyclovir 800 mg tablet 800 mg PO QNOON RF: 0 atorvastatin 40 MG tablet 40 mg PO BEDTIME RF: 0 Referrals: Omar Melendez [Primary Care Provider] -
--- NOTE | 2018-05-08 09:20 | DI.RAD.S_ITS ---
PROCEDURE: XR CHEST 1V INDICATIONS: edema TECHNIQUE: One view of the chest was acquired. COMPARISON: [facility], , CHEST 2 VIEW, 05/17/2016, 12:31. FINDINGS: Surgical changes and devices: None. Lungs and pleura: No pleural effusions or pneumothorax. There is mild patchy bilateral perihilar density. Mediastinum: Mediastinal contours appear normal. Heart size is normal. Bones and chest wall: No suspicious bony lesions. Overlying soft tissues appear unremarkable. IMPRESSION: Mild atypical pneumonia. Dictated by: Lennox Mathews M.D. on 05/08/2018 at 9:43 Approved by: Lennox Mathews M.D. on 05/08/2018 at 9:44
[2018-05-08 09:23] LABS: Hematocrit 27.4 % (36-46); Hemoglobin 9.4 g/dL (12.0-16.0); Mean Corpuscular HGB Conc 34.3 % (30-36); Mean Corpuscular Hemoglobin 29.2 PG (26-34); Mean Corpuscular Volume 85.3 fL (80-100); Platelet Count 151 X10^3/uL (150-400); Red Blood Cell Count 3.21 X10^6/uL (4.0-5.2); Red Cell Distribution Width 14.4 % (11.6-14.8)
[2018-05-08 09:30] LABS: Add Manual Diff / Slide Review YES; White Blood Cell Count 1.7 X10^3/uL (4.5-11.0)
[2018-05-08 09:32] LABS: Alanine Aminotransferase 22 IU/L (9-52); Albumin 3.1 g/dL (3.5-5.0); Albumin Globulin Ratio 1.1 (1.0-2.8); Alkaline Phosphatase 65 U/L (38-126); Aspartate Aminotransferase 26 IU/L (14-36); Bilirubin Total 0.5 mg/dL (0.2-1.3); Blood Urea Nitrogen 51 mg/dL (7-17); Calcium 7.3 mg/dL (8.4-10.2); Carbon Dioxide 16 mmol/L (22-32); Chloride 103 mmol/L (98-107); Estimated Glomerular Filt Rate 29.1 mL/min (>60); Globulin 2.7 g/dL (1.7-4.1); Glucose 122 mg/dL (80-110); HEMOLYSIS < 15 (0-50); Potassium 3.9 mmol/L (3.4-5.1); Sodium 132 mmol/L (137-145); Total Protein 5.8 g/dL (6.3-8.2)
[2018-05-08 09:37] LABS: Neutrophils Absolute Manual 170 /uL (3000-5900); Total Cells Counted 100
[2018-05-08 09:38] LABS: Burr Cells 1+; Poikilocytosis 1+
[2018-05-08 09:42] LABS: B Type Natriuretic Peptide 1060 (<100)
[2018-05-08 10:00] VITALS: BP 127/72; PULSE 81; RESP 19; O2SAT 98
[2018-05-08 10:42] VITALS: BP 135/63; PULSE 87; RESP 20; O2SAT 98
== END 2018-05-08 10:43 | disposition home or self-care (01) ==
PROVIDERS: Emergency Provider Emergency Medicine; Family Provider Internal Medicine Hematology; PCP Family Medicine
DX: R60.9 Edema, unspecified (principal); I50.9 Heart failure, unspecified
CPT/HCPCS: 36591; 71045; 80053; 83880; 85025; 99282; 99284

== ENCOUNTER → 2018-06-17 10:32 | Outpatient (CLI) | payer MEDICARE, OTHER, SELFPAY ==
[2018-05-02 18:24] VITALS: BMI 26.1
[2018-06-17 11:17] LABS: Mean Corpuscular HGB Conc 33.6 % (30-36); Mean Corpuscular Hemoglobin 28.8 PG (26-34); Mean Corpuscular Volume 85.7 fL (80-100); Red Blood Cell Count 2.21 X10^6/uL (4.0-5.2); Red Cell Distribution Width 13.6 % (11.6-14.8)
[2018-06-17 11:19] LABS: Hemoglobin 6.4 g/dL (12.0-16.0); White Blood Cell Count 1.4 X10^3/uL (4.5-11.0)
[2018-06-17 11:20] LABS: Hematocrit 19.4 % (36-46)
[2018-06-17 11:21] LABS: Add Manual Diff / Slide Review YES
[2018-06-17 12:03] LABS: Neutrophils Absolute Manual 252 /uL (3000-5900); Nucleated Red Blood Cells 2 #/Diff; Total Cells Counted 50
[2018-06-17 12:04] LABS: Rouleaux 2+
[2018-06-17 12:09] LABS: Alanine Aminotransferase 30 IU/L (9-52); Albumin 3.3 g/dL (3.5-5.0); Alkaline Phosphatase 121 U/L (38-126); Aspartate Aminotransferase 24 IU/L (14-36); BUN Creatinine Ratio 16.1 (6-22); Bilirubin Total 0.6 mg/dL (0.2-1.3); Blood Urea Nitrogen 29 mg/dL (7-17); Calcium 8.3 mg/dL (8.4-10.2); Carbon Dioxide 22 mmol/L (22-32); Chloride 101 mmol/L (98-107); Estimated Glomerular Filt Rate 27.2 mL/min (>60); Globulin 3.3 g/dL (1.7-4.1); Glucose 108 mg/dL (80-110); HEMOLYSIS < 15 (0-50); Sodium 133 mmol/L (137-145); Total Protein 6.6 g/dL (6.3-8.2)
[2018-06-17 12:10] LABS: Potassium 5.4 mmol/L (3.4-5.1)
== END ==
PROVIDERS: PCP Family Medicine; Visit Provider Internal Medicine Hematology & Oncology
DX: D46.Z Other myelodysplastic syndromes (principal)
CPT/HCPCS: 36415; 80053; 85025

== ENCOUNTER → 2018-07-01 11:00 | Outpatient (CLI) | payer MEDICARE, OTHER, SELFPAY ==
[2018-05-02 18:24] VITALS: BMI 26.1
[2018-07-01 11:26] LABS: Hematocrit 23.1 % (36-46); Hemoglobin 7.7 g/dL (12.0-16.0); Mean Corpuscular HGB Conc 33.4 % (30-36); Mean Corpuscular Hemoglobin 28.9 PG (26-34); Mean Corpuscular Volume 86.4 fL (80-100); Platelet Count 78 X10^3/uL (150-400); Red Blood Cell Count 2.67 X10^6/uL (4.0-5.2); Red Cell Distribution Width 14.6 % (11.6-14.8)
[2018-07-01 11:28] LABS: Add Manual Diff / Slide Review YES; White Blood Cell Count 1.8 X10^3/uL (4.5-11.0)
[2018-07-01 11:50] LABS: Neutrophils Absolute Manual 198 /uL (3000-5900); Total Cells Counted 100
[2018-07-01 11:51] LABS: Rouleaux 2+
== END ==
PROVIDERS: PCP Family Medicine; Visit Provider Internal Medicine Hematology & Oncology
DX: D46.Z Other myelodysplastic syndromes (principal)
CPT/HCPCS: 36415; 85025

== ENCOUNTER → 2018-07-08 11:30 | Oncology outpatient (ONC) | payer MEDICARE, OTHER, SELFPAY ==
[2018-03-11 13:20] VITALS: BP 140/75; PULSE 61; RESP 18; TEMP 36.4; O2SAT 98
--- NOTE | 2018-03-11 13:29 | ONC.CONS ---
History of Present Illness - Data of Consult Patient: new to practice Consult date: 03/11/18 Requesting Physician: Bulmaro Smart MD Primary Care Provider: Bulmaro Smart MD - Consult Narrative Reason for consult: t-MDS and AL amyloidosis Narrative: Tona Alves is a 77 year old female. She is a long-time patient of Dr. Babita Thompson at the [facility]. 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 The biopsy was performed on 12/14/2010 which showed amyloidosis with deposits of monoclonal lambda light chains within glomeruli. Bone marrow aspiration biopsy on 01/06/2011 showed plasma cell fractionation of 0.92% by flow cytometry. Patient received treatment with melphalan and dexamethasone for 12 months. The melphalan was 10 mg daily for 4 days every 4 weeks and dexamethasone 20 mg daily for 4 days every 4 weeks. Patient received her twelfth cycle of treatment in February of 2012. In October 2016, patient developed pancytopenia. BMA/Bx on 11/28/16 showed hypocellular marrow (%) with involvement by MDS and minimal involvement by plasma cell neoplasm. Marrow showed 3% blasts by morphology. Cytogenetics showed complex karyotype including deletion 5q and monosomy 7. 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 Because of her history of amyloidosis and therapy with melpalan, therapy-related MDS (t-MDS) was noted. She was evaluated at [facility] by Dr. Babita Thompson. The patient was then started on Azacitidine 75 m/m2 daily on days 1 through 10. C1D1 was 02/05/2017. she was also started on treatment with Darbopointin injection. Up until now, she has received 10 cycles of Azacitaidine. On 01/18/2018, repeat BMA/Bx showed persistent/recurrent MDS with approximately 5% blasts in 2-30% cellular marrow and residual/recurrent plasma cell neoplasm, approximately 1-2%, abnormal female karyotype (19/20), including loss of normal copies of chromosomes 4, 7 and 19; additional material of undefined origin on the short arm of chromosome 2 and the long arms of chromosomes 6 and 20; deletions of the long arms of chromosomes 5 and 15; a derivative chromosome resulting from an unbalanced translocation between and unknown chromosome and what appear to be portions of the missing chromosomes 4 and 19; and the presence of 1-3 marker chromosomes of undefined origin. The -4, smiley(15), add(20), and smiley(?)t(?:4) are new findings. Clinically, she said at present, she feels good. No nose bleed for quite a while. She went to ER for nose bleeding in the past. She reports good energy, good appetite, no fever and no chills. She has mild lower extremity edema. She reports no blood in the stool. No bone pain. She is scheduled to see Dr. Babita Dickey on 03/13/2018. CC: Naeem Stanton MD Patient reports pain?: No Home Medications and Allergies Home Medications Medication Instructions Recorded Confirmed Type acyclovir 800 mg PO DAILY #0 12/30/10 03/11/18 History furosemide [Lasix] 0 SEE INSTRUCTIONS #0 01/24/16 History potassium chloride [Klor-Con M20] 0 SEE INSTRUCTIONS #0 01/24/16 History atorvastatin 40 mg PO HS #90 tab 10/18/16 Rx cholecalciferol (vitamin D3) 1,000 unit PO 03/11/18 History [Vitamin D3] levofloxacin 03/11/18 History metoprolol succinate 300 mg PO DAILY 03/11/18 03/11/18 History polyethylene glycol 3350 [Miralax] 03/11/18 History Allergies Allergy/AdvReac Type Severity Reaction Status Date / Time Tetanus Vaccines and Toxoid AdvReac Unknown Unverified 07/25/17 13:05 [TETANUS VACCINES & TOXOID] Medical History - Medical, Surgical, Family History Medical History: Medical History (Last Updated 03/11/18 @ 13:56 by Naeem Stanton MD) Amyloidosis (Acute) CKD (chronic kidney disease) Cancer, skin, squamous cell HTN (hypertension) Hyperlipidemia Intermittent atrial fibrillation MDS/MPN (myelodysplastic/myeloproliferative neoplasms) Surgical History: Surgical History (Last Updated 03/11/18 @ 13:55 by Naeem Stanton MD) History of brain surgery Hx laparoscopic cholecystectomy Hx of cholecystectomy Family History: Family History (Last Updated 03/16/18 @ 12:38 by Naeem Stanton MD) Father Prostate cancer - Social History Smoking Status: Never smoker Substance Use Type: does not use Alcohol Intake Frequency: 0-2 drinks per day (a little bit of wine or percical) Review of Systems - Patient Self-Reported Symptoms SR Cardiovascular issues: Extreme swelling All systems PM: reviewed and no additional remarkable complaints except as stated Exam Vital signs: Last Vital Signs Temp 97.5 F L 03/11/18 13:20 Pulse 61 03/11/18 13:20 Resp 18 03/11/18 13:20 BP 140/75 03/11/18 13:20 Pulse Ox 98 03/11/18 13:20 ECOG 1 - Constitutional positive no acute distress, positive average body habitus, positive cooperative - Routine HEENT Exam Head: Present: normocephalic, atraumatic Eye: Present: EOMI, PERRL, normal accommodation. Absent: conjunctival icterus ENT: Present: mucous membranes moist - Routine Neck Exam Present: supple. Absent: lymphadenopathy, thyromegaly - Routine Respiratory Exam Present: Clear to auscultation bilaterally. Absent: wheezes - Routine Cardiovascular Exam Present: RRR, S1, S2. Absent: murmur, gallop, rubs, S3 - Routine Abdominal Exam Present: soft, normoactive bowel sounds. Absent: tenderness, distended, organomegaly - Routine Extremities Exam Absent: edema - Routine Skin Exam Present: intact - Routine Neurological Exam Present: alert, oriented X3, CN II-XII intact. Absent: sensory deficit, motor deficit - Routine Psychiatric Exam Present: normal affect, normal thought process, cooperative, good insight, good judgment Results - Labs Reviewed. 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 At the time of diagnosis, she presented with anemia and leukopenia. Assessment and Plan: Patient is currently receiving treatment with azacitidine. Up until now she has received 10 cycles. Patient is scheduled to see Dr. Babita Thompson on 03/13/2018 for follow-up visit. Due to travel convenience, patient is considering getting some cycles locally. She presents today to establish care. She will continue follow-up at [facility] intermittently. I will have her come back after her [facility] visit which is scheduled for 03/13/2018. (2) AL amyloidosis Problem details: Diagnosed in 2010, status post 12 cycles of chemotherapy with the melphalan and dexamethasone. Assessment and Plan: Seems to be stable. Patient is being followed by Nephrology. (3) CKD (chronic kidney disease) stage 3, GFR 30-59 ml/min Problem details: Due to AL amyloidosis. Assessment and Plan: followed by nephrology.
--- NOTE | 2018-03-11 13:50 | P.CONONC_ITS ---
History of Present Illness - Data of Consult Patient: new to practice Consult date: 03/11/18 Requesting Physician: Bulmaro Smart MD Primary Care Provider: Bulmaro Smart MD - Consult Narrative Reason for consult: t-MDS and AL amyloidosis Narrative: Tona Alves is a 77 year old female. She is a long-time patient of Dr. Babita Thompson at the [facility]. 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 The biopsy was performed on 12/14/2010 which showed amyloidosis with deposits of monoclonal lambda light chains within glomeruli. Bone marrow aspiration biopsy on 01/06/2011 showed plasma cell fractionation of 0.92% by flow cytometry. Patient received treatment with melphalan and dexamethasone for 12 months. The melphalan was 10 mg daily for 4 days every 4 weeks and dexamethasone 20 mg daily for 4 days every 4 weeks. Patient received her twelfth cycle of treatment in February of 2012. In October 2016, patient developed pancytopenia. BMA/Bx on 11/28/16 showed hypocellular marrow (%) with involvement by MDS and minimal involvement by plasma cell neoplasm. Marrow showed 3% blasts by morphology. Cytogenetics showed complex karyotype including deletion 5q and monosomy 7. 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 Because of her history of amyloidosis and therapy with melpalan, therapy-related MDS (t-MDS) was noted. She was evaluated at [facility] by Dr. Babita Thompson. The patient was then started on Azacitidine 75 m/m2 daily on days 1 through 10. C1D1 was 02/05/2017. she was also started on treatment with Darbopointin injection. Up until now, she has received 10 cycles of Azacitaidine. On 01/18/2018, repeat BMA/Bx showed persistent/recurrent MDS with approximately 5% blasts in 2-30% cellular marrow and residual/recurrent plasma cell neoplasm, approximately 1-2%, abnormal female karyotype (19/20), including loss of normal copies of chromosomes 4, 7 and 19; additional material of undefined origin on the short arm of chromosome 2 and the long arms of chromosomes 6 and 20; deletions of the long arms of chromosomes 5 and 15; a derivative chromosome resulting from an unbalanced translocation between and unknown chromosome and what appear to be portions of the missing chromosomes 4 and 19; and the presence of 1-3 marker chromosomes of undefined origin. The -4, smiley(15), add(20) , and smiley(?)t(?:4) are new findings. Clinically, she said at present, she feels good. No nose bleed for quite a while. She went to ER for nose bleeding in the past. She reports good energy, good appetite, no fever and no chills. She has mild lower extremity edema. She reports no blood in the stool. No bone pain. She is scheduled to see Dr. Babita Dickey on 03/13/2018. CC: Naeem Stanton MD Patient reports pain?: No Home Medications and Allergies Home Medications Medication Instructions Recorded Confirmed Type acyclovir 800 mg PO DAILY #0 12/30/10 03/11/18 History furosemide [Lasix] 0 SEE INSTRUCTIONS #0 01/24/16 History potassium chloride [Klor-Con M20] 0 SEE INSTRUCTIONS #0 01/24/16 History atorvastatin 40 mg PO HS #90 tab 10/18/16 Rx cholecalciferol (vitamin D3) 1,000 unit PO 03/11/18 History [Vitamin D3] levofloxacin 03/11/18 History metoprolol succinate 300 mg PO DAILY 03/11/18 03/11/18 History polyethylene glycol 3350 [Miralax] 03/11/18 History Allergies Allergy/AdvReac Type Severity Reaction Status Date / Time Tetanus Vaccines and Toxoid AdvReac Unknown Unverified 07/25/17 13:05 [TETANUS VACCINES & TOXOID] Medical History - Medical, Surgical, Family History Medical History: Medical History (Last Updated 03/11/18 @ 13:56 by Naeem Stanton MD) Amyloidosis (Acute) CKD (chronic kidney disease) Cancer, skin, squamous cell HTN (hypertension) Hyperlipidemia Intermittent atrial fibrillation MDS/MPN (myelodysplastic/myeloproliferative neoplasms) Surgical History: Surgical History (Last Updated 03/11/18 @ 13:55 by Naeem Stanton MD) History of brain surgery Hx laparoscopic cholecystectomy Hx of cholecystectomy Family History: Family History (Last Updated 03/16/18 @ 12:38 by Naeem Stanton MD) Father Prostate cancer - Social History Smoking Status: Never smoker Substance Use Type: does not use Alcohol Intake Frequency: 0-2 drinks per day (a little bit of wine or percical) Review of Systems - Patient Self-Reported Symptoms SR Cardiovascular issues: Extreme swelling All systems PM: reviewed and no additional remarkable complaints except as stated Exam Vital signs: Last Vital Signs Temp 97.5 F L 03/11/18 13:20 Pulse 61 03/11/18 13:20 Resp 18 03/11/18 13:20 BP 140/75 03/11/18 13:20 Pulse Ox 98 03/11/18 13:20 ECOG 1 - Constitutional positive no acute distress, positive average body habitus, positive cooperative - Routine HEENT Exam Head: Present: normocephalic, atraumatic Eye: Present: EOMI, PERRL, normal accommodation. Absent: conjunctival icterus ENT: Present: mucous membranes moist - Routine Neck Exam Present: supple. Absent: lymphadenopathy, thyromegaly - Routine Respiratory Exam Present: Clear to auscultation bilaterally. Absent: wheezes - Routine Cardiovascular Exam Present: RRR, S1, S2. Absent: murmur, gallop, rubs, S3 - Routine Abdominal Exam Present: soft, normoactive bowel sounds. Absent: tenderness, distended, organomegaly - Routine Extremities Exam Absent: edema - Routine Skin Exam Present: intact - Routine Neurological Exam Present: alert, oriented X3, CN II-XII intact. Absent: sensory deficit, motor deficit - Routine Psychiatric Exam Present: normal affect, normal thought process, cooperative, good insight, good judgment Results - Labs Reviewed. 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 At the time of diagnosis, she presented with anemia and leukopenia. Assessment and Plan: Patient is currently receiving treatment with azacitidine. Up until now she has received 10 cycles. Patient is scheduled to see Dr. Babita Thompson on 03/13/2018 for follow-up visit. Due to travel convenience , patient is considering getting some cycles locally. She presents today to establish care. She will continue follow-up at [facility] intermittently. I will have her come back after her [facility] visit which is scheduled for 03/13/2018. (2) AL amyloidosis Problem details: Diagnosed in 2010, status post 12 cycles of chemotherapy with the melphalan and dexamethasone. Assessment and Plan: Seems to be stable. Patient is being followed by Nephrology. (3) CKD (chronic kidney disease) stage 3, GFR 30-59 ml/min Problem details: Due to AL amyloidosis. Assessment and Plan: followed by nephrology.
[2018-04-05 11:13] LABS: Hematocrit 26.3 % (36-46); Hemoglobin 9.1 g/dL (12.0-16.0); Mean Corpuscular HGB Conc 34.7 % (30-36); Mean Corpuscular Hemoglobin 29.9 PG (26-34); Mean Corpuscular Volume 86.3 fL (80-100); Platelet Count 69 X10^3/uL (150-400); Red Blood Cell Count 3.04 X10^6/uL (4.0-5.2); Red Cell Distribution Width 13.9 % (11.6-14.8)
[2018-04-05 11:15] LABS: Add Manual Diff / Slide Review YES; White Blood Cell Count 1.1 X10^3/uL (4.5-11.0)
[2018-04-05 11:36] LABS: Anisocytosis 1+; Neutrophils Absolute Manual 110 /uL (3000-5900); Poikilocytosis 1+; Total Cells Counted 50
[2018-04-05 11:43] VITALS: BP 153/72; PULSE 67; RESP 18; TEMP 36.7; O2SAT 100
--- NOTE | 2018-04-05 11:51 | P.PNONC_ITS ---
PN -Subjective Interval history: Tona Alves is a 77 year old female, a long time patient of Dr. Babita Thompson at [facility]. Patient initially presented in 2010 with ankle swelling. 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 BMA/Bx on 01/06 showed plasma cell fractionation of 0.92% by flow cytometry. Patient received melphalan(10mg/daily)/dexamethasone (20 mg daily) on days 1-4 of every 4 week for 12 cycles completed in February of 2012. In October 2016, patient developed pancytopenia. BMA/Bx on 11/28/16 showed hypocellular marrow with involvement by MDS and minimal involvement by plasma cell neoplasm. Marrow showed 3% blasts by morphology. Cytogenetics showed complex karyotype including deletion 5q and monosomy 7. 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 Because of her history of amyloidosis and therapy with melpalan, therapy-related MDS (t-MDS) was noted. She was evaluated at [facility] by Dr. Babita Thompson. The patient was then started on Azacitidine 75 m/m2 daily on days 1 through 10 every 4 weeks. C1D1 was 2016. She was also started on treatment with Darbepoetin injection 300 mcg every 2 weeks for HGB < 12. On 01/18/2018, repeat BMA/Bx showed persistent/recurrent MDS with approximately 5% blasts in 2-30% cellular marrow and residual/recurrent plasma cell neoplasm, approximately 1-2%, abnormal female karyotype (19/20), including loss of normal copies of chromosomes 4, 7 and 19; additional material of undefined origin on the short arm of chromosome 2 and the long arms of chromosomes 6 and 20; deletions of the long arms of chromosomes 5 and 15; a derivative chromosome resulting from an unbalanced translocation between and unknown chromosome and what appear to be portions of the missing chromosomes 4 and 19; and the presence of 1-3 marker chromosomes of undefined origin. The -4, smiley(15), add(20) , and smiley(?)t(?:4) are new findings. In Feb, 2018, she saw Dr. Babita Thompson as follow up visit. Patient would like to get her Darbepoetin locally with intention to transition her azacitidine injection too in the future. I saw the patient on 04/01/2018. Patient just completed her cycle 11 vidaza (day #1: 03/14/2018) at [facility]. Current visit: During her previous visit on 04/11/2018, her H/H were 4.8/14.1. Patient underwent pRBC x3 during the next 2 days. Since then patient said that she has felt completely different. She is able to walk more. She does not have any worsening shortness of breath. She does not have any chest pain. She does not have any nausea or vomiting. Patient presents here today for scheduled follow- up visit. - Patient Self-Reported Symptoms SR eye issues: Vision changes SR Cardiovascular issues: Extreme swelling SR Skin issues: Dry skin SR Genitourinary issues: Frequent urination SR Hematologic issues: Bleeding/bruising - Additional ROS All systems PM: reviewed and no additional remarkable complaints except as stated Home Medications and Allergies Home Medications Medication Instructions Recorded Confirmed Type acyclovir 800 mg PO DAILY #0 12/30/10 04/01/18 History atorvastatin 40 mg PO HS #90 tab 10/18/16 04/06/18 Rx cholecalciferol (vitamin D3) 1,000 unit PO Q OTHER DAY 03/11/18 04/06/18 History [Vitamin D3] levofloxacin 250 mg PO DAILY 03/11/18 04/06/18 History metoprolol succinate 300 mg PO DAILY 03/11/18 04/01/18 History polyethylene glycol 3350 [Miralax] 17 g PO PRN PRN 03/11/18 04/06/18 History amlodipine 5 mg PO DAILY 04/05/18 04/05/18 History fluconazole 200 mg PO DAILY 04/06/18 04/06/18 History Allergies Allergy/AdvReac Type Severity Reaction Status Date / Time amoxicillin Allergy Mild Rash Verified 04/01/18 22:57 Tetanus Vaccines and Toxoid AdvReac Unknown Verified 04/01/18 15:03 [TETANUS VACCINES & TOXOID] Exam Vital signs: Last Vital Signs Temp 98.1 F 04/05/18 11:43 Pulse 67 04/05/18 11:43 Resp 18 04/05/18 11:43 BP 153/72 H 04/05/18 11:43 Pulse Ox 100 04/05/18 11:43 ECOG 1 Narrative: Constitutional: WDWN, NAD, average body habitus, well groomed, pleasant and cooperative, accompanied by her HEENT: NCAT, EOMI, PERRLA, anicteric sclera, no hearing difficulty; oral mucus membrane moist and without ulcers. Neck: Supple, symmetrical, and tracheal midline; No palpable thyromegaly and no palpable lymph nodes. Respiratory: No use of accessory muscles. Clear to auscultation, and no wheezes or rales or rubs. Cardiovascular: Regular rate and rhythm, S1 and S2 normal, no murmurs gallops or rubs. No JVD. No pitting edema of lower extremities. Abdomen: Soft, nontender, non-distended, bowel sounds normal, no palpable organomegaly, no hernia, no palpable masses. Lower extremities: No palpable pedal edema. Lymphatic: no palpable lymph nodes in the neck, axillae, or groins. Musculoskeletal: normal gait and station, no clubbing, no cyanosis, no pitting edema. Skin: petechiae noted at cheeks Neurological: Awake and alert and oriented x3. CN II-XII grossly intact. No focal motor or sensory deficit. Psychiatric: Good judgment, good insight, normal affect, normal thought process , cooperative, no depression, no anxiety. Results - Labs Laboratory Last Values WBC 1.1 X10^3/uL (4.5-11.0) L* 04/05/18 10:42 RBC 3.04 X10^6/uL (4.0-5.2) L 04/05/18 10:42 Hgb 9.1 g/dL (12.0-16.0) L 04/05/18 10:42 Hct 26.3 % (36-46) L 04/05/18 10:42 MCV 86.3 fL (80-100) 04/05/18 10:42 MCH 29.9 PG (26-34) 04/05/18 10:42 MCHC 34.7 % (30-36) 04/05/18 10:42 RDW 13.9 % (11.6-14.8) 04/05/18 10:42 Plt Count 69 X10^3/uL (150-400) L 04/05/18 10:42 Neut % (Auto) Not Reportable 04/05/18 10:42 Lymph % (Auto) Not Reportable 04/05/18 10:42 Chambers % (Auto) Not Reportable 04/05/18 10:42 Eos % (Auto) Not Reportable 04/05/18 10:42 Baso % (Auto) Not Reportable 04/05/18 10:42 Total Counted 50 04/05/18 10:42 Seg Neutrophils % 6.0 % (38-70) L 04/05/18 10:42 Band Neutrophils % 4.0 % (3-7) 04/05/18 10:42 Lymphocytes % (Manual) 58.0 % (25-45) H 04/05/18 10:42 Atypical Lymphs % 14.0 % (-0) H 04/05/18 10:42 Monocytes % (Manual) 12.0 % (2-11) H 04/05/18 10:42 Eosinophils % (Manual) 6.0 % (2-4) H 04/05/18 10:42 Neutrophils # (Manual) 110 /uL (5081-5188) L 04/05/18 10:42 RBC Morphology Not Reportable 04/05/18 10:42 Poikilocytosis 1+ H 04/05/18 10:42 Anisocytosis 1+ H 04/05/18 10:42 Assessment and Plan (1) Therapy-related myelodysplastic syndrome Problem details: 1. 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 At the time of diagnosis, she presented with anemia and leukopenia. Thought to be therapy related. 2. Azacitidine 75 m/m2 daily on days 1-10 q4w. C1D1 was 02/05/2017. 3. Darbepoetin injection 300 mcg q2w for HGB < 12. Assessment: Patient is currently receiving treatment with azacitidine. Up until now she has received 11 cycles. Patient decided to continue Vidaza injection at [facility] scheduled for 03/13/2018. She will also see Dr. Babita Thompson. She will continue follow-up at [facility] intermittently. I will have her come back after her [facility] visit. Patient will need weekly CBC to decide the need for blood transfusion. And I will see the patient every time when she comes here for Darbepoetin injection. Plan: 1. Weekly CBC at [facility], Darbepoetin 300 mcg subQ every 2 weeks, hold if HGB > 12. 2. RTC MD visit on day of Darbepoetin injection 3. Continue follow up at [facility] for Vidaza injection as scheduled. (2) AL amyloidosis Problem details: Diagnosed in 2010, status post 12 cycles of chemotherapy with the melphalan and dexamethasone. Assessment and Plan: Seems to be stable. Patient is being followed by Nephrology. (3) CKD (chronic kidney disease) stage 3, GFR 30-59 ml/min Problem details: Due to AL amyloidosis. Assessment and Plan: She is now being followed by nephrology.
[2018-04-05] MEDS: DARBEPOETIN 300 MCG/0.6 ML SYRINGE SUBCUT (13:00)
[2018-04-25 14:49] VITALS: BP 148/63; PULSE 67; RESP 18; TEMP 36.9
[2018-04-25 15:04] VITALS: BP 150/67; PULSE 70; RESP 18; TEMP 36.8
[2018-04-25 17:12] VITALS: BP 161/75; PULSE 77; RESP 18; TEMP 36.7
--- NOTE | 2018-05-02 10:35 | P.PNONC_ITS ---
PN -Subjective Interval history: Tona Alves is a 77 year old female, a long time patient of Dr. Babita Thompson at [facility]. Patient initially presented in 2010 with ankle swelling. 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 BMA/Bx on 01/06 showed plasma cell fractionation of 0.92% by flow cytometry. Patient received melphalan(10mg/daily)/dexamethasone (20 mg daily) on days 1-4 of every 4 week for 12 cycles completed in February of 2012. In October 2016, patient developed pancytopenia. BMA/Bx on 11/28/16 showed hypocellular marrow with involvement by MDS and minimal involvement by plasma cell neoplasm. Marrow showed 3% blasts by morphology. Cytogenetics showed complex karyotype including deletion 5q and monosomy 7. 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 Because of her history of amyloidosis and therapy with melpalan, therapy-related MDS (t-MDS) was noted. She was evaluated at [facility] by Dr. Babita Thompson. The patient was then started on Azacitidine 75 m/m2 daily on days 1 through 10 every 4 weeks. C1D1 was 2016. She was also started on treatment with Darbepoetin injection 300 mcg every 2 weeks for HGB < 12. On 01/18/2018, repeat BMA/Bx showed persistent/recurrent MDS with approximately 5% blasts in 2-30% cellular marrow and residual/recurrent plasma cell neoplasm, approximately 1-2%, abnormal female karyotype (19/20), including loss of normal copies of chromosomes 4, 7 and 19; additional material of undefined origin on the short arm of chromosome 2 and the long arms of chromosomes 6 and 20; deletions of the long arms of chromosomes 5 and 15; a derivative chromosome resulting from an unbalanced translocation between and unknown chromosome and what appear to be portions of the missing chromosomes 4 and 19; and the presence of 1-3 marker chromosomes of undefined origin. The -4, smiley(15), add(20) , and smiley(?)t(?:4) are new findings. In Feb, 2018, she saw Dr. Babita Thompson as follow up visit. Patient would like to get her Darbepoetin locally with intention to transition her azacitidine injection too in the future. I saw the patient on 04/01/2018. Patient just completed her cycle 11 vidaza (day #1: 03/14/2018) at [facility]. [facility]. She completed cycle 12 Vidaza 04/17/2018 at [facility]. On 04/25/2018, patient's hemoglobin level 7.8 hematocrit 22.4. Patient received blood transfusion pRBC x 1 units. On 04/28/2018 she went to spiritism. At night, patient developed cough. Patient also developed low-grade fever. Maximum temperature according to patient 100.4. Patient said that she is coughing up some blood-tinged phlegm. Patient denies any chest pain. Patient does report some shortness of breath. He said the cough is severe enough that she was having difficulties sleeping. In addition to the cough, patient also developed watery diarrhea, 4 to 5 times a day. No blood in the stool. Patient reports low energy level especially last couple of days. Patient also has a reduced appetite. - Patient Self-Reported Symptoms SR Constitution: Fever, Fatigue/Malaise SR respiratory issues: Cough, Coughing blood, Shortness of breath SR Cardiovascular issues: Extreme swelling SR Gastrointestinal issues: Poor or no appetite, Diarrhea - Additional ROS All systems PM: reviewed and no additional remarkable complaints except as stated Home Medications and Allergies Home Medications Medication Instructions Recorded Confirmed Type acyclovir 800 mg PO DAILY #0 12/30/10 05/02/18 History atorvastatin 40 mg PO HS #90 tab 10/18/16 05/02/18 Rx cholecalciferol (vitamin D3) 5,000 unit PO Q OTHER DAY 03/11/18 05/02/18 History [Vitamin D3] metoprolol succinate 150 mg PO BID 03/11/18 05/02/18 History polyethylene glycol 3350 [Miralax] 17 g PO PRN PRN 03/11/18 05/02/18 History amlodipine 5 mg PO DAILY 04/05/18 05/02/18 History fluconazole 200 mg PO DAILY #30 tab 05/02/18 05/02/18 Rx levofloxacin 500 mg PO DAILY #30 tab 05/02/18 05/02/18 Rx ondansetron HCl [Zofran] 4 mg PO DAILY 05/02/18 05/02/18 History Allergies Allergy/AdvReac Type Severity Reaction Status Date / Time amoxicillin Allergy Mild Rash Verified 04/01/18 22:57 Tetanus Vaccines and Toxoid AdvReac Unknown Verified 04/01/18 15:03 [TETANUS VACCINES & TOXOID] Exam Vital signs: Last Vital Signs Temp 97.0 F L 05/02/18 10:51 Pulse 78 05/02/18 10:51 Resp 18 05/02/18 10:51 BP 148/62 H 05/02/18 10:51 Pulse Ox 94 05/02/18 10:51 ECOG 1 Narrative: Constitutional: WDWN, NAD, average body habitus, well groomed, pleasant and cooperative, accompanied by her HEENT: NCAT, EOMI, PERRLA, anicteric sclera, no hearing difficulty; oral mucus membrane moist and without ulcers. Neck: Supple, symmetrical, and tracheal midline; No palpable thyromegaly and no palpable lymph nodes. Respiratory: No use of accessory muscles. Clear to auscultation, and no wheezes or rales or rubs. Cardiovascular: Regular rate and rhythm, S1 and S2 normal, no murmurs gallops or rubs. No JVD. No pitting edema of lower extremities. Abdomen: Soft, nontender, non-distended, bowel sounds normal, no palpable organomegaly, no hernia, no palpable masses. Lower extremities: No palpable pedal edema. Lymphatic: no palpable lymph nodes in the neck, axillae, or groins. Musculoskeletal: normal gait and station, no clubbing, no cyanosis, no pitting edema. Skin: petechiae noted at cheeks Neurological: Awake and alert and oriented x3. CN II-XII grossly intact. No focal motor or sensory deficit. Psychiatric: Good judgment, good insight, normal affect, normal thought process , cooperative, no depression, no anxiety. Results - Labs Laboratory Last Values WBC 0.7 X10^3/uL (4.5-11.0) L* 05/02/18 10:31 RBC 2.25 X10^6/uL (4.0-5.2) L 05/02/18 10:31 Hgb 6.7 g/dL (12.0-16.0) L* 05/02/18 10:31 Hct 19.5 % (36-46) L* 05/02/18 10:31 MCV 86.7 fL (80-100) 05/02/18 10:31 MCH 29.7 PG (26-34) 05/02/18 10:31 MCHC 34.3 % (30-36) 05/02/18 10:31 RDW 13.0 % (11.6-14.8) 05/02/18 10:31 Plt Count 38 X10^3/uL (150-400) L 05/02/18 10:31 Neut % (Auto) Not Reportable 05/02/18 10:31 Lymph % (Auto) Not Reportable 05/02/18 10:31 [place] % (Auto) Not Reportable 05/02/18 10:31 Eos % (Auto) Not Reportable 05/02/18 10:31 Baso % (Auto) Not Reportable 05/02/18 10:31 Lymph # (Auto) Not Reportable 05/02/18 10:31 [place] # (Auto) Not Reportable 05/02/18 10:31 Baso # (Auto) Not Reportable 05/02/18 10:31 Total Counted 50 04/05/18 10:42 Seg Neutrophils % 6.0 % (38-70) L 04/05/18 10:42 Band Neutrophils % 4.0 % (3-7) 04/05/18 10:42 Lymphocytes % (Manual) 58.0 % (25-45) H 04/05/18 10:42 Atypical Lymphs % 14.0 % (-0) H 04/05/18 10:42 Monocytes % (Manual) 12.0 % (2-11) H 04/05/18 10:42 Eosinophils % (Manual) 6.0 % (2-4) H 04/05/18 10:42 Neutrophils # (Manual) 110 /uL (4282-4613) L 04/05/18 10:42 RBC Morphology Not Reportable 04/05/18 10:42 Poikilocytosis 1+ H 04/05/18 10:42 Anisocytosis 1+ H 04/05/18 10:42 Blood Type O Positive 04/25/18 10:45 Antibody Screen Negative 04/25/18 10:45 Crossmatch See Detail 04/25/18 10:45 Assessment and Plan (1) Therapy-related myelodysplastic syndrome Problem details: 1. 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 At the time of diagnosis, she presented with anemia and leukopenia. Thought to be therapy related. 2. Azacitidine 75 m/m2 daily on days 1-10 q4w. C1D1 was 02/05/2017. 3. Darbepoetin injection 300 mcg q2w for HGB < 12. Assessment: Patient is currently receiving treatment with azacitidine. Up until now she has received 12 cycles at [facility],completed 04/17/2018. She is being followed at [facility] by Dr. Babita Thompson. She presents here today for scheduled follow-up visit and for Darbepoetin injection. I reviewed the laboratory tests from today. Patient has severe neutropenia, severe anemia with hemoglobin level 6.7 and severe thrombocytopenia with platelet counts 38. Clinically no bleeding events. In addition patient has developed cough, shortness of breath, low- grade fever, and diarrhea. Plan: 1. Ok to proceed to Darbepoetin 300 mcg subQ today 2. pRBC 2 units iv today 3. CT chest w/o contrast stat 4. EKG stat 5. Stool C-diff test 6. Continue Acyclovier 800 mg daily 7. Continue Fluconzaole 200 mg daily 8. Levaquin 500 mg daily 9. RTC 05/06/2018 for follow up visit, CBC, CMP. (2) AL amyloidosis Problem details: Diagnosed in 2010, status post 12 cycles of chemotherapy with the melphalan and dexamethasone. Assessment and Plan: Seems to be stable. Patient is being followed by Nephrology. (3) CKD (chronic kidney disease) stage 3, GFR 30-59 ml/min Problem details: Due to AL amyloidosis. Assessment and Plan: She is now being followed by nephrology. (4) Diarrhea Patient has been on chronic antibiotic use. C diff infection needs to be excluded. (5) Cough Patient has chronic neutropenia. Possible infections including bacterial, viral , and fungal infection. I will continue current prophylactic acyclovir, fluconazole, and Levaquin use. I will proceed with CT scan of the chest without contrast to further evaluate. We will also get EKG stat to evaluate the QT interval given the possible interactions between fluconazole and Levaquin.
[2018-05-02 10:49] LABS: Mean Corpuscular HGB Conc 34.3 % (30-36); Mean Corpuscular Hemoglobin 29.7 PG (26-34); Mean Corpuscular Volume 86.7 fL (80-100); Platelet Count 38 X10^3/uL (150-400); Red Blood Cell Count 2.25 X10^6/uL (4.0-5.2)
[2018-05-02 10:51] VITALS: BP 148/62; PULSE 78; RESP 18; TEMP 36.1; O2SAT 94
[2018-05-02 10:51] LABS: Add Manual Diff / Slide Review YES; White Blood Cell Count 0.7 X10^3/uL (4.5-11.0)
[2018-05-02 10:52] LABS: Hematocrit 19.5 % (36-46); Hemoglobin 6.7 g/dL (12.0-16.0)
[2018-05-02 11:59] LABS: Anisocytosis 2+; Basophilic Stippling 1+
[2018-05-02 12:42] VITALS: BP 133/72; PULSE 85; RESP 16; TEMP 37.4
[2018-05-02] MEDS: SODIUM CHLORIDE 0.9% 250 ML 21 ML IV (12:43)
[2018-05-02] MEDS: DARBEPOETIN 300 MCG/0.6 ML SYRINGE SUBCUT (12:46)
[2018-05-02 12:58] VITALS: BP 139/66; PULSE 86; RESP 16; TEMP 37.3
[2018-05-02 15:44] LABS: Influenza A and B by PCR Rapid Negative (Negative)
[2018-05-02 16:13] VITALS: BP 154/76; PULSE 85; RESP 26; TEMP 37.2
--- NOTE | 2018-05-02 16:14 | PC.NURSE ---
PATIENT 02 SATS 91 ON ROOM AIR, WITH DEEP BREATHING 92. SHE REPORTS SHORTNESS OF BREATH AND RR IS 26/MIN. PLACED ON 02 PER NC WITH 02 SATS RISING TO 95-96 AND PATIENT REPORTING FEELING MORE COMFORTABLE. SHE HAS BEEN SEEN BY DR. RESTREPO AND IS AWAITING ADMISSION TO [facility].
[2018-05-06 14:26] LABS: QuantiFERON TB NEGATIVE (Negative)
[2018-05-14 10:40] LABS: Hematocrit 21.8 % (36-46); Hemoglobin 7.3 g/dL (12.0-16.0); Mean Corpuscular HGB Conc 33.8 % (30-36); Mean Corpuscular Hemoglobin 29.1 PG (26-34); Mean Corpuscular Volume 86.1 fL (80-100); Platelet Count 88 X10^3/uL (150-400); Red Blood Cell Count 2.53 X10^6/uL (4.0-5.2); Red Cell Distribution Width 14.4 % (11.6-14.8)
--- NOTE | 2018-05-14 10:42 | PC.NURSE ---
Received critical lab result from lab, WBC:0.9, grants officer aware
[2018-05-14 10:43] LABS: Add Manual Diff / Slide Review YES; White Blood Cell Count 0.9 X10^3/uL (4.5-11.0)
[2018-05-14 11:07] LABS: Neutrophils Absolute Manual 72 /uL (3000-5900); Nucleated Red Blood Cells 1 #/Diff; Platelet Estimate Decreased on smear; Total Cells Counted 50
[2018-05-14 11:08] LABS: Rouleaux 2+
[2018-05-14 11:55] VITALS: BP 124/67; PULSE 81; RESP 18; TEMP 36.7
[2018-05-14 12:11] VITALS: BP 125/70; PULSE 85; RESP 18; TEMP 36.8
[2018-05-14 14:13] VITALS: BP 131/64; PULSE 87; RESP 17; TEMP 36.7
[2018-05-14] MEDS: FUROSEMIDE 20 MG/2 ML VIAL 40 MG IV (14:33)
[2018-05-14 15:06] VITALS: BP 131/64; PULSE 87; RESP 17
[2018-05-14 15:22] VITALS: BP 143/64; PULSE 87; RESP 17; TEMP 36.7
--- NOTE | 2018-05-14 17:02 | TAR.TRANSNT ---
Pt transferred to ICU in stable condition w/approx 30min remaining on her second unit of RBC's Report to [place]
[2018-05-14 17:57] VITALS: BP 137/75; PULSE 85; RESP 16; TEMP 36.6
[2018-05-16 12:33] VITALS: BP 124/63; PULSE 82; RESP 18; TEMP 36.4; O2SAT 99
--- NOTE | 2018-05-16 12:39 | ONC.PN ---
PN -Subjective Interval history: Tona Alves is a 77 year old female, a long time patient of Dr. Babita Thompson at [facility]. Patient initially presented in 2010 with ankle swelling. 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 BMA/Bx on 01/06/2011 showed plasma cell fractionation of 0.92% by flow cytometry. Patient received melphalan(10mg/daily)/dexamethasone (20 mg daily) on days 1-4 of every 4 week for 12 cycles completed in February of 2012. In October 2016, patient developed pancytopenia. BMA/Bx on 11/28/16 showed hypocellular marrow with involvement by MDS and minimal involvement by plasma cell neoplasm. Marrow showed 3% blasts by morphology. Cytogenetics showed complex karyotype including deletion 5q and monosomy 7. 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 Because of her history of amyloidosis and therapy with melpalan, therapy-related MDS (t-MDS) was noted. She was evaluated at [facility] by Dr. Babita Thompson. The patient was then started on Azacitidine 75 m/m2 daily on days 1 through 10 every 4 weeks. C1D1 was 02/05/2017. She was also started on treatment with Darbepoetin injection 300 mcg every 2 weeks for HGB < 12. On 01/18/2018, repeat BMA/Bx showed persistent/recurrent MDS with approximately 5% blasts in 2-30% cellular marrow and residual/recurrent plasma cell neoplasm, approximately 1-2%, abnormal female karyotype (19/20), including loss of normal copies of chromosomes 4, 7 and 19; additional material of undefined origin on the short arm of chromosome 2 and the long arms of chromosomes 6 and 20; deletions of the long arms of chromosomes 5 and 15; a derivative chromosome resulting from an unbalanced translocation between and unknown chromosome and what appear to be portions of the missing chromosomes 4 and 19; and the presence of 1-3 marker chromosomes of undefined origin. The -4, smiley(15), add(20), and smiley(?)t(?:4) are new findings. In Feb, 2018, she saw Dr. Babita Thompson as follow up visit. Patient would like to get her Darbepoetin locally with intention to transition her azacitidine injection too in the future. I saw the patient on 04/01/2018. Patient just completed her cycle 11 vidaza (day #1: 03/14/2018) at [facility]. She completed cycle 12 Vidaza 04/17/2018 at [facility]. On 04/25/2018, patient's hemoglobin level 7.8 hematocrit 22.4. Patient received blood transfusion pRBC x 1 units. Interim Events: On 04/28/2018 she went to [employer]. At night, patient developed cough. Patient also developed low-grade fever. Maximum temperature according to patient 100.4. Patient said that she is coughing up some blood-tinged phlegm. She said the cough is severe enough that she was having difficulties sleeping. In addition to the cough, patient also developed watery diarrhea, 4 to 5 times a day. She was then hospitalized for presumed pneumonia. She was found to have metapneumonia virus infection. She presents today for post-discharge follow up visit. She reported that she feels a lot better today. Her cough has improved. She received pRBC 2 units on 05/14/2018 because her HGB was 7.3. She denies fever, or chills. But she is still having some lingering dry hacking coughing. She denies any chest pain. No abdominal pain. No diarrhea and no constipation. - Patient Self-Reported Symptoms SR Constitution: Fatigue/Malaise SR eye issues: Vision changes SR ears, nose, mouth, throat issues: Nose bleeds SR respiratory issues: Cough SR Cardiovascular issues: Extreme swelling SR Skin issues: Dry skin SR Gastrointestinal issues: Poor or no appetite, Diarrhea SR Genitourinary issues: Frequent urination SR Hematologic issues: Bleeding/bruising - Additional ROS All systems PM: reviewed and no additional remarkable complaints except as stated Home Medications and Allergies Home Medications Medication Instructions Recorded Confirmed Type cholecalciferol (vitamin D3) 5,000 unit PO Q OTHER DAY 03/11/18 05/08/18 History [Vitamin D3] polyethylene glycol 3350 [Miralax] 17 g PO PRN PRN 03/11/18 05/08/18 History amlodipine 5 mg PO QNOON 04/05/18 05/08/18 History fluconazole 200 mg PO DAILY #30 tab 05/02/18 05/08/18 Rx ondansetron HCl [Zofran] 4 mg PO DAILY 05/02/18 05/08/18 History atorvastatin 40 mg PO BEDTIME 05/08/18 05/08/18 History levofloxacin 500 mg PO QPM 05/08/18 05/08/18 History acyclovir 800 mg PO DAILY #30 tab 05/16/18 Rx metoprolol succinate 150 mg PO BID #14 each 05/16/18 Rx Allergies Allergy/AdvReac Type Severity Reaction Status Date / Time amoxicillin Allergy Mild Rash Verified 04/01/18 22:57 Tetanus Vaccines and Toxoid AdvReac Unknown Verified 04/01/18 15:03 [TETANUS VACCINES & TOXOID] Exam Vital signs: Last Vital Signs Temp 97.6 F 05/16/18 12:33 Pulse 82 05/16/18 12:33 Resp 18 05/16/18 12:33 BP 124/63 05/16/18 12:33 Pulse Ox 99 05/16/18 12:33 ECOG 1 Narrative: Constitutional: WDWN, NAD, average body habitus, well groomed, pleasant and cooperative, accompanied by her HEENT: NCAT, EOMI, PERRLA, anicteric sclera, no hearing difficulty; oral mucus membrane moist and without ulcers. Neck: Supple, symmetrical, and tracheal midline; No palpable thyromegaly and no palpable lymph nodes. Respiratory: No use of accessory muscles. Clear to auscultation, and no wheezes or rales or rubs. Cardiovascular: Regular rate and rhythm, S1 and S2 normal, no murmurs gallops or rubs. No JVD. No pitting edema of lower extremities. Abdomen: Soft, nontender, non-distended, bowel sounds normal, no palpable organomegaly, no hernia, no palpable masses. Lower extremities: No palpable pedal edema. Lymphatic: no palpable lymph nodes in the neck, axillae, or groins. Musculoskeletal: normal gait and station, no clubbing, no cyanosis, no pitting edema. Skin: petechiae noted at cheeks Neurological: Awake and alert and oriented x3. CN II-XII grossly intact. No focal motor or sensory deficit. Psychiatric: Good judgment, good insight, normal affect, normal thought process, cooperative, no depression, no anxiety. Results - Labs Laboratory Last Values WBC 0.9 X10^3/uL (4.5-11.0) L* 05/14/18 10:20 RBC 2.53 X10^6/uL (4.0-5.2) L 05/14/18 10:20 Hgb 7.3 g/dL (12.0-16.0) L 05/14/18 10:20 Hct 21.8 % (36-46) L 05/14/18 10:20 MCV 86.1 fL (80-100) 05/14/18 10:20 MCH 29.1 PG (26-34) 05/14/18 10:20 MCHC 33.8 % (30-36) 05/14/18 10:20 RDW 14.4 % (11.6-14.8) 05/14/18 10:20 Plt Count 88 X10^3/uL (150-400) L 05/14/18 10:20 Neut % (Auto) Not Reportable 05/14/18 10:20 Lymph % (Auto) Not Reportable 05/14/18 10:20 Patrick % (Auto) Not Reportable 05/14/18 10:20 Eos % (Auto) Not Reportable 05/14/18 10:20 Baso % (Auto) Not Reportable 05/14/18 10:20 Lymph # (Auto) Not Reportable 05/14/18 10:20 Patrick # (Auto) Not Reportable 05/14/18 10:20 Baso # (Auto) Not Reportable 05/14/18 10:20 Total Counted 50 05/14/18 10:20 Seg Neutrophils % 4.0 % (38-70) L 05/14/18 10:20 Band Neutrophils % 4.0 % (3-7) 05/14/18 10:20 Lymphocytes % (Manual) 42.0 % (25-45) 05/14/18 10:20 Atypical Lymphs % 14.0 % (-0) H 05/14/18 10:20 Monocytes % (Manual) 32.0 % (2-11) H 05/14/18 10:20 Eosinophils % (Manual) 4.0 % (2-4) 05/14/18 10:20 Basophils % (Manual) 1.0 % (0-1) 05/02/18 10:31 Neutrophils # (Manual) 72 /uL (7438-7950) L 05/14/18 10:20 Nucleated RBCs 1 #/Diff (-0) H 05/14/18 10:20 Platelet Estimate Decreased on smear 05/14/18 10:20 RBC Morphology See below 05/14/18 10:20 Poikilocytosis 1+ H 04/05/18 10:42 Basophilic Stippling 1+ H 05/02/18 10:31 Anisocytosis 2+ H 05/02/18 10:31 Rouleaux 2+ H 05/14/18 10:20 Influenza A & B (PCR) Negative (Negative) 05/02/18 15:20 TB Test Mitogen - Nil 9.57 IU/mL 05/02/18 15:27 TB Test Antigen - Nil 0.06 IU/mL 05/02/18 15:27 TB Test (QFT) Negative (Negative) 05/02/18 15:27 Ref Test (Refrig) 05/02/18 15:27 Blood Type O Positive 05/14/18 10:25 Antibody Screen Negative 05/14/18 10:25 Crossmatch See Detail 05/14/18 10:25 - Imaging Additional studies: Procedures Transfusion of Nonautologous Red Blood Cells into Peripheral Vein, Percutaneous Approach (05/02/18) Assessment and Plan (1) Therapy-related myelodysplastic syndrome Problem details: 1. 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 At the time of diagnosis, she presented with anemia and leukopenia. Thought to be therapy related. Patient receives erythropoietin as an outpatient. A G-CSF not indicated as she is likely to be poorly responsive 2. Azacitidine 75 m/m2 daily on days 1-10 q4w. C1D1 was 02/05/2017. 3. Darbepoetin injection 300 mcg q2w for HGB < 12. Assessment: Patient is currently receiving treatment with azacitidine. Up until now she has received 12 cycles at [facility],completed 04/17/2018. She is being followed at [facility] by Dr. Emily Thompson. Today at the clinic, I had a phone conversation with Dr. Emily Thompson. Dr. Thompson thought that patient is still responding to the treatment with Vidaza given the limited number of blast cell counts on recent bone marrow aspiration and biopsy study. Dr. Babita Thompson said that she is going to take a look at Tona's records and see if she is going to be eligible for new clinical trials involving the use of guadecitabine. Dr. Thompson is going to e-mail me about the eligibility. If the patient is not eligible, Dr. Thompson recommended continue management with Vidaza. I asked about the dosing issues given [facility]'s limitation (we open only 4 days a week). Dr. Thompson is okay for the patient to use 4 days of 1 week and 3 days the other week every 4 week. For the Darbepointin injection, Dr. Thompson will look into if it is possible to use once every week instead of once every 2-3 weeks. I will have the patient to see our [employer] Estefania next Sunday. We will repeat CBC to decide if patient will need blood transfusion. Patient should continue CBC check Sunday and . In addition on Sunday patient should get darbepoitin injection 300 mcg. Plan: 1. Darbepoetin 300 mcg subQ next Sunday, continue every 3 week 2. Continue Acyclovier 800 mg daily 3. Continue Fluconazole 200 mg daily 4. Continue Levaquin 250 mg daily 5. RTC 05/20/2018, see [facility] Estefania, CBC (2) AL amyloidosis Problem details: Diagnosed in 2010, status post 12 cycles of chemotherapy with the melphalan and dexamethasone. Present on admission, chronic Assessment and Plan: Seems to be stable. Patient is being followed by Nephrology. 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 (4) Cough Much improved after recent hospitalization.
--- NOTE | 2018-05-16 14:00 | PC.NURSE ---
received a call from [facility] regarding pts Metoprolol Rx. This was incorrectly ordered as a sprinkle pack and not a pill. After verifying with the pt on the correct dosage it was determined the pt takes 150mg BID which requires 6 pills a day. The bridge amount that was provided to her would not be enough to get her to her next PCP visit where more could then be prescribed. After speaking with Dr Stanton, I gave a verbal for the pharmacists to issue Metoprolol 50mg tabs taking 150mg by mouth BID #42. This will give her a weeks worth.
[2018-05-23 11:58] LABS: Hemoglobin 7.8 g/dL (12.0-16.0); Mean Corpuscular Hemoglobin 29.2 PG (26-34); Mean Corpuscular Volume 85.9 fL (80-100); Platelet Count 90 X10^3/uL (150-400); Red Blood Cell Count 2.68 X10^6/uL (4.0-5.2); Red Cell Distribution Width 13.6 % (11.6-14.8)
[2018-05-23 12:03] LABS: Add Manual Diff / Slide Review YES
[2018-05-23 12:40] LABS: Neutrophils Absolute Manual 220 /uL (3000-5900); Total Cells Counted 50
[2018-05-23 12:42] LABS: Platelet Estimate Decreased on smear; Poikilocytosis 1+
[2018-05-23] MEDS: SODIUM CHLORIDE 0.9% 250 ML 21 ML IV (13:30)
[2018-05-23 13:52] VITALS: BP 129/68; PULSE 81; RESP 18; TEMP 36.7
[2018-05-23 14:08] VITALS: BP 129/63; PULSE 77; RESP 18; TEMP 36.9
[2018-05-23 15:47] VITALS: BP 131/65; PULSE 86; RESP 18; TEMP 36.9
[2018-05-23 16:03] VITALS: BP 131/65; PULSE 68; RESP 18; TEMP 36.9
[2018-05-23 16:19] VITALS: BP 145/67; PULSE 80; RESP 18; TEMP 36.9
--- NOTE | 2018-05-23 16:39 | TAR.TRANSNT ---
pt tranferred to room 201 in stable condition. VSS, second unit of RBC's infusion at 175mls/hr. Report to CRISPIN Perez
[2018-05-23 18:27] VITALS: BP 138/76; PULSE 76; RESP 16; TEMP 37.2
--- NOTE | 2018-05-23 18:29 | PC.NURSE ---
Last PRBC completed. Pt tolerated well. IV removed per hospital protocol. Pt escorted by hospital staff via wheelchair to vehicle that was driving.
--- NOTE | 2018-06-05 10:04 | ONC.SCHED ---
while doing reminder calls today, this patient stated that she saw Dr Thompson at [facility] this week and had labs this week and might be revising her treatment plan . . . she'll call tomorrow with regards to her Sunday appointment . . . she may be going back to [facility] next week instead.
[2018-06-10 10:53] VITALS: BP 122/58; PULSE 85; RESP 18; TEMP 36; O2SAT 100
--- NOTE | 2018-06-10 10:53 | P.PNONC_ITS ---
PN -Subjective Interval history: Tona Alves is a 77 year old female, a long time patient of Dr. Babita Thompson at [facility]. Patient initially presented in 2010 with ankle swelling. 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 BMA/Bx on 01/06/2011 showed plasma cell fractionation of 0.92% by flow cytometry. Patient received melphalan(10mg/daily)/dexamethasone (20 mg daily) on days 1-4 of every 4 week for 12 cycles completed in February of 2012. In October 2016, patient developed pancytopenia. BMA/Bx on 11/28/16 showed hypocellular marrow with involvement by MDS and minimal involvement by plasma cell neoplasm. Marrow showed 3% blasts by morphology. Cytogenetics showed complex karyotype including deletion 5q and monosomy 7. 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 Because of her history of amyloidosis and therapy with melpalan, therapy-related MDS (t-MDS) was noted. She was evaluated at [facility] by Dr. Babita Thompson. The patient was then started on Azacitidine 75 m/m2 daily on days 1 through 10 every 4 weeks. C1D1 was 02/05/2017. She was also started on treatment with Darbepoetin injection 300 mcg every 2 weeks for HGB < 12. On 01/18/2018, repeat BMA/Bx showed persistent/recurrent MDS with approximately 5% blasts in 2-30% cellular marrow and residual/recurrent plasma cell neoplasm, approximately 1-2%, abnormal female karyotype (19/20), including loss of normal copies of chromosomes 4, 7 and 19; additional material of undefined origin on the short arm of chromosome 2 and the long arms of chromosomes 6 and 20; deletions of the long arms of chromosomes 5 and 15; a derivative chromosome resulting from an unbalanced translocation between and unknown chromosome and what appear to be portions of the missing chromosomes 4 and 19; and the presence of 1-3 marker chromosomes of undefined origin. The -4, smiley(15), add(20), and smiley(?)t(?:4) are new findings. In Feb, 2018, she saw Dr. Babita Thompson as follow up visit. Patient would like to get her Darbepoetin locally with intention to transition her azacitidine injection too in the future. I saw the patient on 04/01/2018. Patient just completed her cycle 11 vidaza (day #1: 03/14/2018) at [facility]. She completed cycle 12 Vidaza 04/17/2018 at [facility]. On 04/25/2018, patient's hemoglobin level 7.8 hematocrit 22.4. Patient received blood transfusion pRBC x 1 units. Interim Events: On 04/28/2018 she went to [facility]. At night, patient developed cough. Patient also developed low-grade fever. Maximum temperature according to patient 100.4. Patient said that she is coughing up some blood-tinged phlegm. She said the cough is severe enough that she was having difficulties sleeping. In addition to the cough, patient also developed watery diarrhea, 4 to 5 times a day. She was then hospitalized for presumed pneumonia. She was found to have metapneumonia virus infection. She presents today for post-discharge follow up visit. She reported that she feels a lot better today. Her cough has improved. She received pRBC 2 units on 05/14/2018 because her HGB was 7.3. She denies fever, or chills. But she is still having some lingering dry hacking coughing. She denies any chest pain. No abdominal pain. No diarrhea and no constipation. - Patient Self-Reported Symptoms SR Constitution: Fatigue/Malaise SR eye issues: Vision changes SR ears, nose, mouth, throat issues: Nose bleeds SR respiratory issues: Cough SR Cardiovascular issues: Extreme swelling SR Skin issues: Dry skin SR Gastrointestinal issues: Poor or no appetite, Diarrhea SR Genitourinary issues: Frequent urination SR Hematologic issues: Bleeding/bruising - Additional ROS All systems PM: reviewed and no additional remarkable complaints except as stated Home Medications and Allergies Home Medications Medication Instructions Recorded Confirmed Type cholecalciferol (vitamin D3) 5,000 unit PO Q OTHER DAY 03/11/18 05/08/18 History [Vitamin D3] polyethylene glycol 3350 [Miralax] 17 g PO PRN PRN 03/11/18 05/08/18 History amlodipine 5 mg PO QNOON 04/05/18 05/08/18 History fluconazole 200 mg PO DAILY #30 tab 05/02/18 05/08/18 Rx ondansetron HCl [Zofran] 4 mg PO DAILY 05/02/18 05/08/18 History atorvastatin 40 mg PO BEDTIME 05/08/18 05/08/18 History levofloxacin 500 mg PO QPM 05/08/18 05/08/18 History acyclovir 800 mg PO DAILY #30 tab 05/16/18 Rx metoprolol succinate 150 mg PO BID #14 each 05/16/18 Rx Allergies Allergy/AdvReac Type Severity Reaction Status Date / Time amoxicillin Allergy Mild Rash Verified 04/01/18 22:57 Tetanus Vaccines and Toxoid AdvReac Unknown Verified 04/01/18 15:03 [TETANUS VACCINES & TOXOID] Exam Vital signs: Last Vital Signs Temp 96.8 F L 06/10/18 10:53 Pulse 85 06/10/18 10:53 Resp 18 06/10/18 10:53 BP 122/58 L 06/10/18 10:53 Pulse Ox 100 06/10/18 10:53 ECOG 1 Narrative: Constitutional: WDWN, NAD, average body habitus, well groomed, pleasant and cooperative, accompanied by her HEENT: NCAT, EOMI, PERRLA, anicteric sclera, no hearing difficulty; oral mucus membrane moist and without ulcers. Neck: Supple, symmetrical, and tracheal midline; No palpable thyromegaly and no palpable lymph nodes. Respiratory: No use of accessory muscles. Clear to auscultation, and no wheezes or rales or rubs. Cardiovascular: Regular rate and rhythm, S1 and S2 normal, no murmurs gallops or rubs. No JVD. No pitting edema of lower extremities. Abdomen: Soft, nontender, non-distended, bowel sounds normal, no palpable organomegaly, no hernia, no palpable masses. Lower extremities: No palpable pedal edema. Lymphatic: no palpable lymph nodes in the neck, axillae Musculoskeletal: normal gait and station, no clubbing, no cyanosis, no pitting edema. Skin: petechiae noted at cheeks Neurological: Awake and alert and oriented x3. CN II-XII grossly intact. No focal motor or sensory deficit. Psychiatric: Good judgment, good insight, normal affect, normal thought process, cooperative, no depression, no anxiety. Results - Labs Laboratory Last Values WBC 1.0 X10^3/uL (4.5-11.0) L* 05/23/18 11:20 RBC 2.68 X10^6/uL (4.0-5.2) L 05/23/18 11:20 Hgb 7.8 g/dL (12.0-16.0) L 05/23/18 11:20 Hct 23.0 % (36-46) L 05/23/18 11:20 MCV 85.9 fL (80-100) 05/23/18 11:20 MCH 29.2 PG (26-34) 05/23/18 11:20 MCHC 34.0 % (30-36) 05/23/18 11:20 RDW 13.6 % (11.6-14.8) 05/23/18 11:20 Plt Count 90 X10^3/uL (150-400) L 05/23/18 11:20 Neut % (Auto) Not Reportable 05/23/18 11:20 Lymph % (Auto) Not Reportable 05/23/18 11:20 Owsley % (Auto) Not Reportable 05/23/18 11:20 Eos % (Auto) Not Reportable 05/23/18 11:20 Baso % (Auto) Not Reportable 05/23/18 11:20 Lymph # (Auto) Not Reportable 05/23/18 11:20 Owsley # (Auto) Not Reportable 05/23/18 11:20 Baso # (Auto) Not Reportable 05/23/18 11:20 Total Counted 50 05/23/18 11:20 Seg Neutrophils % 22.0 % (38-70) L 05/23/18 11:20 Band Neutrophils % 4.0 % (3-7) 05/14/18 10:20 Lymphocytes % (Manual) 62.0 % (25-45) H 05/23/18 11:20 Atypical Lymphs % 14.0 % (-0) H 05/14/18 10:20 Monocytes % (Manual) 16.0 % (2-11) H 05/23/18 11:20 Eosinophils % (Manual) 4.0 % (2-4) 05/14/18 10:20 Basophils % (Manual) 1.0 % (0-1) 05/02/18 10:31 Neutrophils # (Manual) 220 /uL (5760-6306) L 05/23/18 11:20 Nucleated RBCs 1 #/Diff (-0) H 05/14/18 10:20 Platelet Estimate Decreased on smear 05/23/18 11:20 Plt Morphology Comment 05/23/18 11:20 RBC Morphology See below 05/23/18 11:20 Poikilocytosis 1+ H 05/23/18 11:20 Basophilic Stippling 1+ H 05/02/18 10:31 Anisocytosis 2+ H 05/02/18 10:31 Rouleaux 2+ H 05/14/18 10:20 Influenza A & B (PCR) Negative (Negative) 05/02/18 15:20 TB Test Mitogen - Nil 9.57 IU/mL 05/02/18 15:27 TB Test Antigen - Nil 0.06 IU/mL 05/02/18 15:27 TB Test (QFT) Negative (Negative) 05/02/18 15:27 Ref Test (Refrig) 05/02/18 15:27 Blood Type O Positive 05/23/18 11:20 Antibody Screen Negative 05/23/18 11:20 Crossmatch See Detail 05/23/18 11:20 - Imaging Additional studies: Procedures Transfusion of Nonautologous Red Blood Cells into Peripheral Vein, Percutaneous Approach (05/02/18) Assessment and Plan (1) Therapy-related myelodysplastic syndrome Problem details: 1. 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 At the time of diagnosis, she presented with anemia and leukopenia. Thought to be therapy related. Patient receives erythropoietin as an outpatient. A G-CSF not indicated as she is likely to be poorly responsive 2. Azacitidine 75 m/m2 daily on days 1-10 q4w. C1D1 was 02/05/2017. 3. Darbepoetin injection 300 mcg q2w for HGB < 12. Assessment: Patient is currently receiving treatment with azacitidine. Up until now she has received 12 cycles at [facility],completed 04/17/2018. She is being followed at [facility] by Dr. Emily Thompson. Patient is currently being evaluated at [facility] possible participation in clinical trials. Patient is expecting more information from [facility] research coordinators. Plan: 1. Continue Acyclovier 800 mg daily 2. Continue Fluconazole 200 mg daily 3. Continue Levaquin 250 mg daily 4. Weekly CBC, CMP, transfusion pRBC prn HGB < 8/24 5. RTC in 2 weeks, visit. (2) AL amyloidosis Problem details: Diagnosed in 2010, status post 12 cycles of chemotherapy with the melphalan and dexamethasone. Present on admission, chronic Assessment and Plan: Seems to be stable. Patient is being followed by [facility] e[facility]. 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 (4) Cough Much improved after recent hospitalization.
[2018-06-10 11:40] LABS: Hematocrit 25.9 % (36-46); Hemoglobin 8.7 g/dL (12.0-16.0); Mean Corpuscular HGB Conc 33.7 % (30-36); Mean Corpuscular Hemoglobin 28.9 PG (26-34); Mean Corpuscular Volume 85.9 fL (80-100); Platelet Count 96 X10^3/uL (150-400); Red Blood Cell Count 3.01 X10^6/uL (4.0-5.2); Red Cell Distribution Width 13.6 % (11.6-14.8)
[2018-06-10 11:43] LABS: Add Manual Diff / Slide Review YES; White Blood Cell Count 1.4 X10^3/uL (4.5-11.0)
[2018-06-10 11:52] LABS: BUN Creatinine Ratio 15.3 (6-22); Blood Urea Nitrogen 23 mg/dL (7-17); Calcium 8.2 mg/dL (8.4-10.2); Carbon Dioxide 24 mmol/L (22-32); Chloride 102 mmol/L (98-107); Estimated Glomerular Filt Rate 33.6 mL/min (>60); Glucose 91 mg/dL (80-110); HEMOLYSIS < 15 (0-50); Potassium 3.8 mmol/L (3.4-5.1); Sodium 134 mmol/L (137-145)
[2018-06-10 12:04] LABS: Neutrophils Absolute Manual 0 /uL (3000-5900); Total Cells Counted 100
[2018-06-10 12:05] LABS: Platelet Morphology Comment 3+
[2018-06-17 13:10] VITALS: BP 112/64; PULSE 91; RESP 16; TEMP 36.8
[2018-06-17 13:20] VITALS: BP 116/61; PULSE 85; RESP 16; TEMP 36.8
[2018-06-17 15:34] VITALS: BP 121/71; PULSE 84; RESP 18; TEMP 37
[2018-06-17 16:04] VITALS: BP 121/71; PULSE 84; RESP 18; TEMP 37
[2018-06-17 16:20] VITALS: BP 123/78; PULSE 84; RESP 18; TEMP 36.8
[2018-06-17] MEDS: DARBEPOETIN 300 MCG/0.6 ML SYRINGE SUBCUT (16:37)
--- NOTE | 2018-06-17 17:21 | PC.NURSE ---
Patient transferred to acute care for remainder of second unit of prbcs. Report given to nurse Valente.
[2018-06-17 18:46] VITALS: BP 131/76; PULSE 88; RESP 20; TEMP 37.2
[2018-06-24 11:46] LABS: Hemoglobin 7.9 g/dL (12.0-16.0); Mean Corpuscular HGB Conc 34.2 % (30-36); Mean Corpuscular Hemoglobin 29.7 PG (26-34); Mean Corpuscular Volume 86.7 fL (80-100); Platelet Count 101 X10^3/uL (150-400); Red Blood Cell Count 2.65 X10^6/uL (4.0-5.2); Red Cell Distribution Width 14.7 % (11.6-14.8)
[2018-06-24 11:47] LABS: Add Manual Diff / Slide Review YES; White Blood Cell Count 1.1 X10^3/uL (4.5-11.0)
[2018-06-24 11:59] LABS: Alanine Aminotransferase 26 IU/L (9-52); Albumin 3.1 g/dL (3.5-5.0); Albumin Globulin Ratio 0.9 (1.0-2.8); Alkaline Phosphatase 120 U/L (38-126); Aspartate Aminotransferase 19 IU/L (14-36); Bilirubin Total 0.5 mg/dL (0.2-1.3); Blood Urea Nitrogen 24 mg/dL (7-17); Calcium 8.1 mg/dL (8.4-10.2); Carbon Dioxide 22 mmol/L (22-32); Chloride 103 mmol/L (98-107); Estimated Glomerular Filt Rate 33.6 mL/min (>60); Globulin 3.4 g/dL (1.7-4.1); Glucose 97 mg/dL (80-110); HEMOLYSIS < 15 (0-50); Potassium 4.1 mmol/L (3.4-5.1); Sodium 133 mmol/L (137-145); Total Protein 6.5 g/dL (6.3-8.2)
[2018-06-24 12:08] VITALS: BP 119/75; PULSE 90; RESP 18; TEMP 36.8; O2SAT 96
[2018-06-24 12:17] LABS: Neutrophils Absolute Manual 198 /uL (3000-5900); Total Cells Counted 50
[2018-06-24 12:19] LABS: Platelet Estimate Decreased on smear
--- NOTE | 2018-06-24 12:33 | ONC.PN ---
PN -Subjective Interval history: Tona Alves is a 77 year old female, a long time patient of Dr. Babita Thompson at [facility]. Patient initially presented in 2010 with ankle swelling. 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 BMA/Bx on 01/06/2011 showed plasma cell fractionation of 0.92% by flow cytometry. Patient received melphalan(10mg/daily)/dexamethasone (20 mg daily) on days 1-4 of every 4 week for 12 cycles completed in February of 2012. In October 2016, patient developed pancytopenia. BMA/Bx on 11/28/16 showed hypocellular marrow with involvement by MDS and minimal involvement by plasma cell neoplasm. Marrow showed 3% blasts by morphology. Cytogenetics showed complex karyotype including deletion 5q and monosomy 7. 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 Because of her history of amyloidosis and therapy with melpalan, therapy-related MDS (t-MDS) was noted. She was evaluated at [facility] by Dr. Babita Thompson. The patient was then started on Azacitidine 75 m/m2 daily on days 1 through 10 every 4 weeks. C1D1 was 02/05/2017. She was also started on treatment with Darbepoetin injection 300 mcg every 2 weeks for HGB < 12. On 01/18/2018, repeat BMA/Bx showed persistent/recurrent MDS with approximately 5% blasts in 2-30% cellular marrow and residual/recurrent plasma cell neoplasm, approximately 1-2%, abnormal female karyotype (19/20), including loss of normal copies of chromosomes 4, 7 and 19; additional material of undefined origin on the short arm of chromosome 2 and the long arms of chromosomes 6 and 20; deletions of the long arms of chromosomes 5 and 15; a derivative chromosome resulting from an unbalanced translocation between and unknown chromosome and what appear to be portions of the missing chromosomes 4 and 19; and the presence of 1-3 marker chromosomes of undefined origin. The -4, smiley(15), add(20), and smiley(?)t(?:4) are new findings. In Feb, 2018, she saw Dr. Babita Thompson as follow up visit. Patient would like to get her Darbepoetin locally with intention to transition her azacitidine injection too in the future. I saw the patient on 04/01/2018. Patient just completed her cycle 11 vidaza (day #1: 03/14/2018) at [facility]. She completed cycle 12 Vidaza 04/17/2018 at [facility]. On 04/25/2018, patient's hemoglobin level 7.8 hematocrit 22.4. Patient received blood transfusion pRBC x 1 units. On 04/28/2018 she went to [facility]. At night, patient developed cough. Patient also developed low-grade fever. Maximum temperature according to patient 100.4. Patient said that she is coughing up some blood-tinged phlegm. She said the cough is severe enough that she was having difficulties sleeping. In addition to the cough, patient also developed watery diarrhea, 4 to 5 times a day. She was then hospitalized for presumed pneumonia. She was found to have metapneumonia virus infection. She presents today for post-discharge follow up visit. She received pRBC 2 units on 05/14/2018 because her HGB was 7.3. Interim Events: She denies fever, or chills. But she did feel wiped out on 06/17/2018. She was found to have a hemoglobin level 6.4 therefore blood transfusion was given. She is scheduled to go to [facility] on SundayJune 26 for bone marrow and echo and also will see Dr. Babita Thompson the next day regarding enrollment into the Guadecitabine trial. - Patient Self-Reported Symptoms SR Constitution: Fatigue/Malaise SR eye issues: Vision changes SR ears, nose, mouth, throat issues: Cough SR respiratory issues: Cough, Shortness of breath SR Cardiovascular issues: Extreme swelling SR Skin issues: Dry skin SR Gastrointestinal issues: Poor or no appetite, Diarrhea SR Genitourinary issues: Frequent urination SR Hematologic issues: Bleeding/bruising - Additional ROS All systems PM: reviewed and no additional remarkable complaints except as stated Home Medications and Allergies Home Medications Medication Instructions Recorded Confirmed Type cholecalciferol (vitamin D3) 5,000 unit PO Q OTHER DAY 03/11/18 05/08/18 History [Vitamin D3] polyethylene glycol 3350 [Miralax] 17 g PO PRN PRN 03/11/18 05/08/18 History amlodipine 5 mg PO QNOON 04/05/18 05/08/18 History fluconazole 200 mg PO DAILY #30 tab 05/02/18 05/08/18 Rx ondansetron HCl [Zofran] 4 mg PO DAILY 05/02/18 05/08/18 History atorvastatin 40 mg PO BEDTIME 05/08/18 05/08/18 History levofloxacin 500 mg PO QPM 05/08/18 05/08/18 History acyclovir 800 mg PO DAILY #30 tab 05/16/18 Rx metoprolol succinate 150 mg PO BID #14 each 05/16/18 Rx Allergies Allergy/AdvReac Type Severity Reaction Status Date / Time amoxicillin Allergy Mild Rash Verified 04/01/18 22:57 Tetanus Vaccines and Toxoid AdvReac Unknown Verified 04/01/18 15:03 [TETANUS VACCINES & TOXOID] Exam Vital signs: Vital Signs Temp Pulse Resp BP Pulse Ox 06/24/18 12:08 98.2 F 90 18 119/75 96 Intake and Output 06/23/18 06/24/18 06/24/18 23:59 07:59 15:59 Other: Weight 62 kg Patient Weight 06/25/18 07:59 Weight 62 kg Narrative: Constitutional: WDWN, NAD, average body habitus, well groomed, pleasant and cooperative, accompanied by her HEENT: NCAT, EOMI, PERRLA, anicteric sclera, no hearing difficulty; oral mucus membrane moist and without ulcers. Neck: Supple, symmetrical, and tracheal midline; No palpable thyromegaly and no palpable lymph nodes. Respiratory: No use of accessory muscles. Clear to auscultation, and no wheezes or rales or rubs. Cardiovascular: Regular rate and rhythm, S1 and S2 normal, no murmurs gallops or rubs. No JVD. No pitting edema of lower extremities. Abdomen: Soft, nontender, non-distended, bowel sounds normal, no palpable organomegaly, no hernia, no palpable masses. Lower extremities: No palpable pedal edema. Lymphatic: no palpable lymph nodes in the neck, axillae Musculoskeletal: normal gait and station, no clubbing, no cyanosis, no pitting edema. Skin: There is a palpable 1 cm subcutaneous nodule at the left upper buttock close the midline. There is some skin bruises around. Neurological: Awake and alert and oriented x3. CN II-XII grossly intact. No focal motor or sensory deficit. Psychiatric: Good judgment, good insight, normal affect, normal thought process, cooperative, no depression, no anxiety. Results - Labs Laboratory Last Values WBC 1.1 X10^3/uL (4.5-11.0) L* 06/24/18 11:31 RBC 2.65 X10^6/uL (4.0-5.2) L 06/24/18 11:31 Hgb 7.9 g/dL (12.0-16.0) L 06/24/18 11:31 Hct 23.0 % (36-46) L 06/24/18 11:31 MCV 86.7 fL (80-100) 06/24/18 11:31 MCH 29.7 PG (26-34) 06/24/18 11:31 MCHC 34.2 % (30-36) 06/24/18 11:31 RDW 14.7 % (11.6-14.8) 06/24/18 11:31 Plt Count 101 X10^3/uL (150-400) L 06/24/18 11:31 Neut % (Auto) Not Reportable 06/24/18 11:31 Lymph % (Auto) Not Reportable 06/24/18 11:31 [place] % (Auto) Not Reportable 06/24/18 11:31 Eos % (Auto) Not Reportable 06/24/18 11:31 Baso % (Auto) Not Reportable 06/24/18 11:31 Lymph # (Auto) Not Reportable 06/24/18 11:31 [place] # (Auto) Not Reportable 06/24/18 11:31 Baso # (Auto) Not Reportable 06/24/18 11:31 Total Counted 50 06/24/18 11:31 Seg Neutrophils % 12.0 % (38-70) L 06/24/18 11:31 Band Neutrophils % 6.0 % (3-7) 06/24/18 11:31 Lymphocytes % (Manual) 36.0 % (25-45) 06/24/18 11:31 Atypical Lymphs % 4.0 % (-0) H 06/24/18 11:31 Monocytes % (Manual) 34.0 % (2-11) H 06/24/18 11:31 Eosinophils % (Manual) 8.0 % (2-4) H 06/24/18 11:31 Basophils % (Manual) 1.0 % (0-1) 05/02/18 10:31 Neutrophils # (Manual) 198 /uL (7484-7278) L 06/24/18 11:31 Nucleated RBCs 1 #/Diff (-0) H 05/14/18 10:20 Platelet Estimate Decreased on smear 06/24/18 11:31 Plt Morphology Comment 3+ 06/10/18 11:30 RBC Morphology See below 06/24/18 11:31 Poikilocytosis 1+ H 05/23/18 11:20 Basophilic Stippling 1+ H 05/02/18 10:31 Anisocytosis 2+ H 05/02/18 10:31 Rouleaux 2+ H 05/14/18 10:20 Sodium 133 mmol/L (137-145) L 06/24/18 11:36 Potassium 4.1 mmol/L (3.4-5.1) D 06/24/18 11:36 Chloride 103 mmol/L (98-107) 06/24/18 11:36 Carbon Dioxide 22 mmol/L (22-32) 06/24/18 11:36 BUN 24 mg/dL (7-17) H 06/24/18 11:36 Creatinine 1.50 mg/dL (0.52-1.04) H 06/24/18 11:36 Estimated GFR 33.6 mL/min (>60) L 06/24/18 11:36 BUN/Creatinine Ratio 16.0 (6-22) 06/24/18 11:36 Glucose 97 mg/dL (80-110) 06/24/18 11:36 Calcium 8.1 mg/dL (8.4-10.2) L 06/24/18 11:36 Total Bilirubin 0.5 mg/dL (0.2-1.3) 06/24/18 11:36 AST 19 IU/L (14-36) 06/24/18 11:36 ALT 26 IU/L (9-52) 06/24/18 11:36 Alkaline Phosphatase 120 U/L (38-126) 06/24/18 11:36 Total Protein 6.5 g/dL (6.3-8.2) 06/24/18 11:36 Albumin 3.1 g/dL (3.5-5.0) L 06/24/18 11:36 Globulin 3.4 g/dL (1.7-4.1) 06/24/18 11:36 Albumin/Globulin Ratio 0.9 (1.0-2.8) L 06/24/18 11:36 Influenza A & B (PCR) Negative (Negative) 05/02/18 15:20 TB Test Mitogen - Nil 9.57 IU/mL 05/02/18 15:27 TB Test Antigen - Nil 0.06 IU/mL 05/02/18 15:27 TB Test (QFT) Negative (Negative) 05/02/18 15:27 Ref Test (Refrig) 05/02/18 15:27 Blood Type O Positive 06/17/18 10:44 Antibody Screen Negative 06/17/18 10:44 Crossmatch See Detail 06/17/18 10:44 - Imaging Additional studies: Procedures Transfusion of Nonautologous Red Blood Cells into Peripheral Vein, Percutaneous Approach (05/02/18) Assessment and Plan (1) Therapy-related myelodysplastic syndrome Problem details: 1. 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 At the time of diagnosis, she presented with anemia and leukopenia. Thought to be therapy related. Patient receives erythropoietin as an outpatient. A G-CSF not indicated as she is likely to be poorly responsive 2. Azacitidine 75 m/m2 daily on days 1-10 q4w. C1D1 was 02/05/2017. 3. Darbepoetin injection 300 mcg q2w for HGB < 12. Assessment: Patient is currently receiving treatment with azacitidine. Up until now she has received 12 cycles at [facility],completed 04/17/2018. She is being followed at [facility] by Dr. Emily Thompson. Patient is currently being evaluated at [facility] possible participation in clinical trials. Patient has already scheduled follow-up visit with Dr. Babita Neumann this Sunday. Patient will likely get bone marrow examination and echocardiogram for the guadecitabine clinical trials. Plan: 1. Continue Acyclovier 800 mg daily 2. Continue Fluconazole 200 mg daily 3. Continue Levaquin 250 mg daily 4. Transfusion pRBC prn HGB < 8/24 5. RTC in 1 week, MD visit. (2) Subcutaneous nodule Assessment and Plan: There is a 1 cm movable subcutaneous nodule to the left of the upper buttock. There are some bruises around the nodule. It feels like a lymph node. I talked with the patient that when she comes back next Sunday, we will re-examine the nodule. If he is improving most, likely it indicates possible subcutaneous hematoma. If it is not improving, I will proceed with ultrasound study to evaluate. 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 (4) Cough Much improved. No hemoptysis.
--- NOTE | 2018-06-24 12:55 | P.PNONC_ITS ---
PN -Subjective Interval history: Tona Alves is a 77 year old female, a long time patient of Dr. Babita Thompson at [facility]. Patient initially presented in 2010 with ankle swelling. 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 BMA/Bx on 01/06/2011 showed plasma cell fractionation of 0.92% by flow cytometry. Patient received melphalan(10mg/daily)/dexamethasone (20 mg daily) on days 1-4 of every 4 week for 12 cycles completed in February of 2012. In October 2016, patient developed pancytopenia. BMA/Bx on 11/28/16 showed hypocellular marrow with involvement by MDS and minimal involvement by plasma cell neoplasm. Marrow showed 3% blasts by morphology. Cytogenetics showed complex karyotype including deletion 5q and monosomy 7. 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 Because of her history of amyloidosis and therapy with melpalan, therapy-related MDS (t-MDS) was noted. She was evaluated at [facility] by Dr. Babita Thompson. The patient was then started on Azacitidine 75 m/m2 daily on days 1 through 10 every 4 weeks. C1D1 was 02/05/2017. She was also started on treatment with Darbepoetin injection 300 mcg every 2 weeks for HGB < 12. On 01/18/2018, repeat BMA/Bx showed persistent/recurrent MDS with approximately 5% blasts in 2-30% cellular marrow and residual/recurrent plasma cell neoplasm, approximately 1-2%, abnormal female karyotype (19/20), including loss of normal copies of chromosomes 4, 7 and 19; additional material of undefined origin on the short arm of chromosome 2 and the long arms of chromosomes 6 and 20; deletions of the long arms of chromosomes 5 and 15; a derivative chromosome resulting from an unbalanced translocation between and unknown chromosome and what appear to be portions of the missing chromosomes 4 and 19; and the presence of 1-3 marker chromosomes of undefined origin. The -4, smiley(15), add(20), and smiley(?)t(?:4) are new findings. In Feb, 2018, she saw Dr. Babita Thompson as follow up visit. Patient would like to get her Darbepoetin locally with intention to transition her azacitidine injection too in the future. I saw the patient on 04/01/2018. Patient just completed her cycle 11 vidaza (day #1: 03/14/2018) at [facility]. She completed cycle 12 Vidaza 04/17/2018 at [facility]. On 04/25/2018, patient's hemoglobin level 7.8 hematocrit 22.4. Patient received blood transfusion pRBC x 1 units. On 04/28/2018 she went to [facility]. At night, patient developed cough. Patient also developed low-grade fever. Maximum temperature according to patient 100.4. Patient said that she is coughing up some blood-tinged phlegm. She said the cough is severe enough that she was having difficulties sleeping. In addition to the cough, patient also developed watery diarrhea, 4 to 5 times a day. She was then hospitalized for presumed pneumonia. She was found to have met apneumonia virus infection. She presents today for post-discharge follow up visit. She received pRBC 2 units on 05/14/2018 because her HGB was 7.3. Interim Events: She denies fever, or chills. But she did feel wiped out on 06/17/2018. She was found to have a hemoglobin level 6.4 therefore blood transfusion was given. She is scheduled to go to [facility] on SundayJune 26 for bone marrow and echo and also will see Dr. Babita Thompson the next day regarding enrollment into the Guadecitabine trial. - Patient Self-Reported Symptoms SR Constitution: Fatigue/Malaise SR eye issues: Vision changes SR ears, nose, mouth, throat issues: Cough SR respiratory issues: Cough, Shortness of breath SR Cardiovascular issues: Extreme swelling SR Skin issues: Dry skin SR Gastrointestinal issues: Poor or no appetite, Diarrhea SR Genitourinary issues: Frequent urination SR Hematologic issues: Bleeding/bruising - Additional ROS All systems PM: reviewed and no additional remarkable complaints except as stated Home Medications and Allergies Home Medications Medication Instructions Recorded Confirmed Type cholecalciferol (vitamin D3) 5,000 unit PO Q OTHER DAY 03/11/18 05/08/18 History [Vitamin D3] polyethylene glycol 3350 [Miralax] 17 g PO PRN PRN 03/11/18 05/08/18 History amlodipine 5 mg PO QNOON 04/05/18 05/08/18 History fluconazole 200 mg PO DAILY #30 tab 05/02/18 05/08/18 Rx ondansetron HCl [Zofran] 4 mg PO DAILY 05/02/18 05/08/18 History atorvastatin 40 mg PO BEDTIME 05/08/18 05/08/18 History levofloxacin 500 mg PO QPM 05/08/18 05/08/18 History acyclovir 800 mg PO DAILY #30 tab 05/16/18 Rx metoprolol succinate 150 mg PO BID #14 each 05/16/18 Rx Allergies Allergy/AdvReac Type Severity Reaction Status Date / Time amoxicillin Allergy Mild Rash Verified 04/01/18 22:57 Tetanus Vaccines and Toxoid AdvReac Unknown Verified 04/01/18 15:03 [TETANUS VACCINES & TOXOID] Exam Vital signs: Vital Signs Temp Pulse Resp BP Pulse Ox 06/24/18 12:08 98.2 F 90 18 119/75 96 Intake and Output 06/23/18 06/24/18 06/24/18 23:59 07:59 15:59 Other: Weight 62 kg Patient Weight 06/25/18 07:59 Weight 62 kg Narrative: Constitutional: WDWN, NAD, average body habitus, well groomed, pleasant and cooperative, accompanied by her HEENT: NCAT, EOMI, PERRLA, anicteric sclera, no hearing difficulty; oral mucus membrane moist and without ulcers. Neck: Supple, symmetrical, and tracheal midline; No palpable thyromegaly and no palpable lymph nodes. Respiratory: No use of accessory muscles. Clear to auscultation, and no wheezes or rales or rubs. Cardiovascular: Regular rate and rhythm, S1 and S2 normal, no murmurs gallops or rubs. No JVD. No pitting edema of lower extremities. Abdomen: Soft, nontender, non-distended, bowel sounds normal, no palpable organomegaly, no hernia, no palpable masses. Lower extremities: No palpable pedal edema. Lymphatic: no palpable lymph nodes in the neck, axillae Musculoskeletal: normal gait and station, no clubbing, no cyanosis, no pitting edema. Skin: There is a palpable 1 cm subcutaneous nodule at the left upper buttock close the midline. There is some skin bruises around. Neurological: Awake and alert and oriented x3. CN II-XII grossly intact. No focal motor or sensory deficit. Psychiatric: Good judgment, good insight, normal affect, normal thought process, cooperative, no depression, no anxiety. Results - Labs Laboratory Last Values WBC 1.1 X10^3/uL (4.5-11.0) L* 06/24/18 11:31 RBC 2.65 X10^6/uL (4.0-5.2) L 06/24/18 11:31 Hgb 7.9 g/dL (12.0-16.0) L 06/24/18 11:31 Hct 23.0 % (36-46) L 06/24/18 11:31 MCV 86.7 fL (80-100) 06/24/18 11:31 MCH 29.7 PG (26-34) 06/24/18 11:31 MCHC 34.2 % (30-36) 06/24/18 11:31 RDW 14.7 % (11.6-14.8) 06/24/18 11:31 Plt Count 101 X10^3/uL (150-400) L 06/24/18 11:31 Neut % (Auto) Not Reportable 06/24/18 11:31 Lymph % (Auto) Not Reportable 06/24/18 11:31 [place] % (Auto) Not Reportable 06/24/18 11:31 Eos % (Auto) Not Reportable 06/24/18 11:31 Baso % (Auto) Not Reportable 06/24/18 11:31 Lymph # (Auto) Not Reportable 06/24/18 11:31 [place] # (Auto) Not Reportable 06/24/18 11:31 Baso # (Auto) Not Reportable 06/24/18 11:31 Total Counted 50 06/24/18 11:31 Seg Neutrophils % 12.0 % (38-70) L 06/24/18 11:31 Band Neutrophils % 6.0 % (3-7) 06/24/18 11:31 Lymphocytes % (Manual) 36.0 % (25-45) 06/24/18 11:31 Atypical Lymphs % 4.0 % (-0) H 06/24/18 11:31 Monocytes % (Manual) 34.0 % (2-11) H 06/24/18 11:31 Eosinophils % (Manual) 8.0 % (2-4) H 06/24/18 11:31 Basophils % (Manual) 1.0 % (0-1) 05/02/18 10:31 Neutrophils # (Manual) 198 /uL (8883-1569) L 06/24/18 11:31 Nucleated RBCs 1 #/Diff (-0) H 05/14/18 10:20 Platelet Estimate Decreased on smear 06/24/18 11:31 Plt Morphology Comment 3+ 06/10/18 11:30 RBC Morphology See below 06/24/18 11:31 Poikilocytosis 1+ H 05/23/18 11:20 Basophilic Stippling 1+ H 05/02/18 10:31 Anisocytosis 2+ H 05/02/18 10:31 Rouleaux 2+ H 05/14/18 10:20 Sodium 133 mmol/L (137-145) L 06/24/18 11:36 Potassium 4.1 mmol/L (3.4-5.1) D 06/24/18 11:36 Chloride 103 mmol/L (98-107) 06/24/18 11:36 Carbon Dioxide 22 mmol/L (22-32) 06/24/18 11:36 BUN 24 mg/dL (7-17) H 06/24/18 11:36 Creatinine 1.50 mg/dL (0.52-1.04) H 06/24/18 11:36 Estimated GFR 33.6 mL/min (>60) L 06/24/18 11:36 BUN/Creatinine Ratio 16.0 (6-22) 06/24/18 11:36 Glucose 97 mg/dL (80-110) 06/24/18 11:36 Calcium 8.1 mg/dL (8.4-10.2) L 06/24/18 11:36 Total Bilirubin 0.5 mg/dL (0.2-1.3) 06/24/18 11:36 AST 19 IU/L (14-36) 06/24/18 11:36 ALT 26 IU/L (9-52) 06/24/18 11:36 Alkaline Phosphatase 120 U/L (38-126) 06/24/18 11:36 Total Protein 6.5 g/dL (6.3-8.2) 06/24/18 11:36 Albumin 3.1 g/dL (3.5-5.0) L 06/24/18 11:36 Globulin 3.4 g/dL (1.7-4.1) 06/24/18 11:36 Albumin/Globulin Ratio 0.9 (1.0-2.8) L 06/24/18 11:36 Influenza A & B (PCR) Negative (Negative) 05/02/18 15:20 TB Test Mitogen - Nil 9.57 IU/mL 05/02/18 15:27 TB Test Antigen - Nil 0.06 IU/mL 05/02/18 15:27 TB Test (QFT) Negative (Negative) 05/02/18 15:27 Ref Test (Refrig) 05/02/18 15:27 Blood Type O Positive 06/17/18 10:44 Antibody Screen Negative 06/17/18 10:44 Crossmatch See Detail 06/17/18 10:44 - Imaging Additional studies: Procedures Transfusion of Nonautologous Red Blood Cells into Peripheral Vein, Percutaneous Approach (05/02/18) Assessment and Plan (1) Therapy-related myelodysplastic syndrome Problem details: 1. 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 At the time of diagnosis, she presented with anemia and leukopenia. Thought to be therapy related. Patient receives erythropoietin as an outpatient. A G-CSF not indicated as she is likely to be poorly responsive 2. Azacitidine 75 m/m2 daily on days 1-10 q4w. C1D1 was 02/05/2017. 3. Darbepoetin injection 300 mcg q2w for HGB < 12. Assessment: Patient is currently receiving treatment with azacitidine. Up until now she has received 12 cycles at [facility],completed 04/17/2018. She is being followed at [facility] by Dr. Emily Thompson. Patient is currently being evaluated at [facility] possible participation in clinical trials. Patient has already scheduled follow-up visit with Dr. Babita Neumann this Sunday. Patient will likely get bone marrow examination and echocardiogram for the guadecitabine clinical trials. Plan: 1. Continue Acyclovier 800 mg daily 2. Continue Fluconazole 200 mg daily 3. Continue Levaquin 250 mg daily 4. Transfusion pRBC prn HGB < 8/24 5. RTC in 1 week, MD visit. (2) Subcutaneous nodule Assessment and Plan: There is a 1 cm movable subcutaneous nodule to the left of the upper buttock. There are some bruises around the nodule. It feels like a lymph node. I talked with the patient that when she comes back next Sunday, we will re-examine the nodule. If he is improving most, likely it indicates possible subcutaneous hematoma. If it is not improving, I will proceed with ultrasound study to evaluate. 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 (4) Cough Much improved. No hemoptysis.
--- NOTE | 2018-06-25 11:40 | PC.NURSE ---
Pt is heading to [facility] for possible clinical trial. Spoke with one of Dr Reeves coordinators and advised her of her labs. H/H 7.9/23.0. Stated pt was last transfused on Tuesday 06/20. They will plan to transfuse based on these numbers
[2018-07-01 14:44] VITALS: BP 109/55; PULSE 90; RESP 18; TEMP 36.1; O2SAT 94
--- NOTE | 2018-07-01 14:46 | P.PNONC_ITS ---
PN -Subjective Interval history: Last week, she saw Dr. Babita Neumann on Sunday. Patient also underwent bone marrow aspiration biopsy as well as echocardiogram. She will be hearing from [facility] tomorrow in terms of the clinical trial eligibility and if eligible the randomization result. Patient will be likely enrolled into the trial. The trial will randomize 2:1 between Gruadecitabine and cytarabine. Hopefully patient will be able to start the trial 07/08/2018. She is complaining of nonproductive cough, non-bloody. Patient is taking Tessalon Anisa with limited relief. She reports no fever and no pain in the chest, but exertional shortness of breath. She said she has also bruises easily. She has lateral lower extremity edema. She is now taking Lasix 30 mg b.i.d. on an as-needed basis. Oncological History Tona Alves is a 78 year old female, a long time patient of Dr. Babita law [facility]. Patient initially presented in 2010 with ankle swelling. 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 BMA/Bx on 01/06/2011 showed plasma cell fractionation of 0.92% by flow cytometry. Patient received melphalan(10mg/daily)/dexamethasone (20 mg daily) on days 1-4 of every 4 week for 12 cycles completed in February of 2012. In October 2016, patient developed pancytopenia. BMA/Bx on 11/28/16 showed hypocellular marrow with involvement by MDS and minimal involvement by plasma cell neoplasm. Marrow showed 3% blasts by morphology. Cytogenetics showed complex karyotype including deletion 5q and monosomy 7. 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 Because of her history of amyloidosis and therapy with melpalan, therapy-related MDS (t-MDS) was noted. She was evaluated at [facility] by Dr. Babita Thompson. The patient was then started on Azacitidine 75 m/m2 daily on days 1 through 10 every 4 weeks. C1D1 was 02/05/2017. She was also started on treatment with Darbepoetin injection 300 mcg every 2 weeks for HGB < 12. On 01/18/2018, repeat BMA/Bx showed persistent/recurrent MDS with approximately 5% blasts in 2-30% cellular marrow and residual/recurrent plasma cell neoplasm, approximately 1-2%, abnormal female karyotype (19/20), including loss of normal copies of chromosomes 4, 7 and 19; additional material of undefined origin on the short arm of chromosome 2 and the long arms of chromosomes 6 and 20; deletions of the long arms of chromosomes 5 and 15; a derivative chromosome resulting from an unbalanced translocation between and unknown chromosome and what appear to be portions of the missing chromosomes 4 and 19; and the presence of 1-3 marker chromosomes of undefined origin. The -4, smiley(15), add(20), and smiley(?)t(?:4) are new findings. In Feb, 2018, she saw Dr. Babita Thompson as follow up visit. Patient would like to get her Darbepoetin locally with intention to transition her azacitidine injection too in the future. I saw the patient on 04/01/2018. Patient just completed her cycle 11 vidaza (day #1: 03/14/2018) at [facility]. She completed cycle 12 Vidaza 04/17/2018 at [facility]. On 04/25/2018, patient's hemoglobin level 7.8 hematocrit 22.4. Patient received blood transfusion pRBC x 1 units. On 04/28/2018 she went to [facility]. At night, patient developed cough. Patient also developed low-grade fever. Maximum temperature according to patient 100.4. Patient said that she is coughing up some blood-tinged phlegm. She said the cough is severe enough that she was having difficulties sleeping. In addition to the cough, patient also developed watery diarrhea, 4 to 5 times a day. She was then hospitalized for presumed pneumonia. She was found to have metapneumonia virus infection. - Patient Self-Reported Symptoms SR Constitution: Fatigue/Malaise SR eye issues: Vision changes SR ears, nose, mouth, throat issues: Cough SR respiratory issues: Cough, Shortness of breath SR Cardiovascular issues: Extreme swelling SR Skin issues: Dry skin SR Gastrointestinal issues: Poor or no appetite, Diarrhea SR Genitourinary issues: Frequent urination SR Hematologic issues: Bleeding/bruising - Additional ROS All systems PM: reviewed and no additional remarkable complaints except as stated Home Medications and Allergies Home Medications Medication Instructions Recorded Confirmed Type cholecalciferol (vitamin D3) 5,000 unit PO Q OTHER DAY 03/11/18 07/01/18 History [Vitamin D3] polyethylene glycol 3350 [Miralax] 17 g PO PRN PRN 03/11/18 07/01/18 History amlodipine 5 mg PO QNOON 04/05/18 07/01/18 History fluconazole 200 mg PO DAILY #30 tab 05/02/18 07/01/18 Rx ondansetron HCl [Zofran] 4 mg PO DAILY 05/02/18 07/01/18 History atorvastatin 40 mg PO BEDTIME 05/08/18 07/01/18 History levofloxacin 500 mg PO QPM 05/08/18 07/01/18 History acyclovir 800 mg PO DAILY #30 tab 05/16/18 07/01/18 Rx metoprolol succinate 150 mg PO BID #14 each 05/16/18 07/01/18 Rx codeine sulfate 15 mg PO Q4-6H PRN #60 tab 07/01/18 Rx Allergies Allergy/AdvReac Type Severity Reaction Status Date / Time amoxicillin Allergy Mild Rash Verified 04/01/18 22:57 Tetanus Vaccines and Toxoid AdvReac Unknown Verified 04/01/18 15:03 [TETANUS VACCINES & TOXOID] Exam Vital signs: Last Vital Signs Temp 97.0 F L 07/01/18 14:44 Pulse 90 07/01/18 14:44 Resp 18 07/01/18 14:44 BP 109/55 L 07/01/18 14:44 Pulse Ox 94 07/01/18 14:44 ECOG 2 Narrative: Constitutional: WDWN, NAD, cooperative, chronically ill, accompanied by her HEENT: NCAT, EOMI, PERRLA, anicteric sclera, pale. Neck: Supple, No palpable thyromegaly and no palpable lymph nodes. Respiratory: Bibasilar scattered rhonchi, left > right, no wheezes or rales or rubs. Cardiovascular: RRR, S1 and S2 normal, no mrg. Abdomen: Soft, ntnd, no palpable organomegaly, no hernia, no palpable masses. Lower extremities: 2+ pitting edema noted. . Lymphatic: no palpable lymph nodes in the neck, axillae Skin: The palpable 1 cm subcutaneous nodule at the left upper buttock close the midline remains about the same. Bruises are less. Neurological: AOx3, CN II-XII grossly intact. No focal motor or sensory deficit. Psychiatric: Good judgment, good insight, normal affect, normal thought process, cooperative Results - Labs Laboratory Last Values WBC 1.1 X10^3/uL (4.5-11.0) L* 06/24/18 11:31 RBC 2.65 X10^6/uL (4.0-5.2) L 06/24/18 11:31 Hgb 7.9 g/dL (12.0-16.0) L 06/24/18 11:31 Hct 23.0 % (36-46) L 06/24/18 11:31 MCV 86.7 fL (80-100) 06/24/18 11:31 MCH 29.7 PG (26-34) 06/24/18 11:31 MCHC 34.2 % (30-36) 06/24/18 11:31 RDW 14.7 % (11.6-14.8) 06/24/18 11:31 Plt Count 101 X10^3/uL (150-400) L 06/24/18 11:31 Neut % (Auto) Not Reportable 06/24/18 11:31 Lymph % (Auto) Not Reportable 06/24/18 11:31 [place] % (Auto) Not Reportable 06/24/18 11:31 Eos % (Auto) Not Reportable 06/24/18 11:31 Baso % (Auto) Not Reportable 06/24/18 11:31 Lymph # (Auto) Not Reportable 06/24/18 11:31 [place] # (Auto) Not Reportable 06/24/18 11:31 Baso # (Auto) Not Reportable 06/24/18 11:31 Total Counted 50 06/24/18 11:31 Seg Neutrophils % 12.0 % (38-70) L 06/24/18 11:31 Band Neutrophils % 6.0 % (3-7) 06/24/18 11:31 Lymphocytes % (Manual) 36.0 % (25-45) 06/24/18 11:31 Atypical Lymphs % 4.0 % (-0) H 06/24/18 11:31 Monocytes % (Manual) 34.0 % (2-11) H 06/24/18 11:31 Eosinophils % (Manual) 8.0 % (2-4) H 06/24/18 11:31 Basophils % (Manual) 1.0 % (0-1) 05/02/18 10:31 Neutrophils # (Manual) 198 /uL (9933-2211) L 06/24/18 11:31 Nucleated RBCs 1 #/Diff (-0) H 05/14/18 10:20 Platelet Estimate Decreased on smear 06/24/18 11:31 Plt Morphology Comment 3+ 06/10/18 11:30 RBC Morphology See below 06/24/18 11:31 Poikilocytosis 1+ H 05/23/18 11:20 Basophilic Stippling 1+ H 05/02/18 10:31 Anisocytosis 2+ H 05/02/18 10:31 Rouleaux 2+ H 05/14/18 10:20 Sodium 133 mmol/L (137-145) L 06/24/18 11:36 Potassium 4.1 mmol/L (3.4-5.1) D 06/24/18 11:36 Chloride 103 mmol/L (98-107) 06/24/18 11:36 Carbon Dioxide 22 mmol/L (22-32) 06/24/18 11:36 BUN 24 mg/dL (7-17) H 06/24/18 11:36 Creatinine 1.50 mg/dL (0.52-1.04) H 06/24/18 11:36 Estimated GFR 33.6 mL/min (>60) L 06/24/18 11:36 BUN/Creatinine Ratio 16.0 (6-22) 06/24/18 11:36 Glucose 97 mg/dL (80-110) 06/24/18 11:36 Calcium 8.1 mg/dL (8.4-10.2) L 06/24/18 11:36 Total Bilirubin 0.5 mg/dL (0.2-1.3) 06/24/18 11:36 AST 19 IU/L (14-36) 06/24/18 11:36 ALT 26 IU/L (9-52) 06/24/18 11:36 Alkaline Phosphatase 120 U/L (38-126) 06/24/18 11:36 Total Protein 6.5 g/dL (6.3-8.2) 06/24/18 11:36 Albumin 3.1 g/dL (3.5-5.0) L 06/24/18 11:36 Globulin 3.4 g/dL (1.7-4.1) 06/24/18 11:36 Albumin/Globulin Ratio 0.9 (1.0-2.8) L 06/24/18 11:36 Influenza A & B (PCR) Negative (Negative) 05/02/18 15:20 TB Test Mitogen - Nil 9.57 IU/mL 05/02/18 15:27 TB Test Antigen - Nil 0.06 IU/mL 05/02/18 15:27 TB Test (QFT) Negative (Negative) 05/02/18 15:27 Ref Test (Refrig) 05/02/18 15:27 Blood Type O Positive 06/17/18 10:44 Antibody Screen Negative 06/17/18 10:44 Crossmatch See Detail 06/17/18 10:44 - Imaging Additional studies: Procedures Transfusion of Nonautologous Red Blood Cells into Peripheral Vein, Percutaneous Approach (05/02/18) Assessment and Plan (1) Therapy-related myelodysplastic syndrome Problem details: 1. 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 At the time of diagnosis, she presented with anemia and leukopenia. Thought to be therapy related. Patient receives erythropoietin as an outpatient. A G-CSF not indicated as she is likely to be poorly responsive 2. Azacitidine 75 m/m2 daily on days 1-10 q4w, x 12 cycles 02/05/2017 through 04/17/2018. 3. Darbepoetin injection 300 mcg q2w for HGB < 12. Assessment: She completed 12 cycles of Vidaza on 04/17/2018. She is being followed at [facility] by Dr. Emily Thompson. She is now being evaluated for clinical trial at pending randomization. Patient will be notified this week. Hopefully she will be starting on the trial next Sunday. I talked with the patient that we do not know the exact schedule as far as the clinical trial is concerned. For now, I will tentatively schedule a follow-up visit with me in about 2 weeks. During the interval, I encouraged the patient to call us any time when she feels uncomfortable and develops worsening signs or symptoms, for example. worsening shortness of breath, worsening cough, or fever or chills, or anything she feels uncomfortable. As far as the blood transfusion is concerned, patient's hemoglobin level is slowly drifting down. Clinically patient has a relatively stable. I talked with the patient that I will continue monitoring the hemoglobin and hematocrit level and will also try to avoid blood transfusion unless it is absolutely necessary. I will also try to minimize blood draw since repeated and frequent lab testing is a potential source of blood loss. I will try to limit to at most once a week lab test. Plan: 1. Continue Acyclovier 800 mg daily 2. Continue Fluconazole 200 mg daily 3. Continue Levaquin 250 mg daily 4. RTC in 2 week, MD visit. (2) Subcutaneous nodule Assessment and Plan: Upon re-evaluation, the nodule seems to be slightly smaller, at least it is not increasing in size. The bruises are improving. I agree with Dr. Babita Thompson that this most likely represents subcutaneous hematoma. I talked with the patient that I will continue current active surveillance. If it increases in size, I will consider ultrasound study. (3) Cough Assessment and Plan: Seems to be the slightly worse than before. Nonproductive cough. I will give patient codeine 15 mg every 4-6 hours on as-needed basis. 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
[2018-07-08] VITALS (9 sets, daily range): BP systolic 99–115; BP diastolic 47–66; PULSE 83–95; RESP 18; TEMP 36.5–36.8
[2018-07-08 12:11] LABS: Hematocrit 17.2 % (36-46); Hemoglobin 5.9 g/dL (12.0-16.0)
[2018-07-08] MEDS: DARBEPOETIN 300 MCG/0.6 ML SYRINGE SUBCUT (16:40)
--- NOTE | 2018-07-08 17:32 | PC.NURSE ---
Patient brought to acute care unit. Report made to CRISPIN Perez informing that patient to receive lasix post this unit and then an additional unit. Patient tolerating well.
[2018-07-08] MEDS: FUROSEMIDE 40 MG/4 ML VIAL IV (18:24)
[2018-07-08] MEDS: SODIUM CHLORIDE 0.9% 250 ML 21 ML IV (18:24)
--- NOTE | 2018-07-08 21:23 | PC.NURSE ---
pt completed 3 units of prbc, first started and completed in the infusion clinic. Last 2 completed on ac floor, with lasix given after second unit. Pt tolerated infusions well. rt ac iv removed per pts request after infusions were complete. This RN escorted pt to car via wheelchair.
== END ==
PROVIDERS: PCP Family Medicine; Visit Provider Internal Medicine Hematology & Oncology
DX: D46.Z Other myelodysplastic syndromes (principal); R05 Cough; R22.9 Localized swelling, mass and lump, unspecified; N18.3 Chronic kidney disease, stage 3 (moderate); E85.81 Light chain (AL) amyloidosis
CPT/HCPCS: 36415; 36430; 80048; 80053; 85014; 85018; 85025; 86480; 86850; 86900; 86901; 87400; 93005; 93010; 96372; 96374; 99204; 99214; 99215; P9016; J0881; J1940